=== PATIENT | female | born 1990 | race Caucasian/White ===

== ENCOUNTER 2017-04-14 12:21 | Emergency (ER) | payer OTHER ==
[~2017-04-14] VITALS: Ht 170.2 cm; Wt 95.3 kg
[~2017-04-14 12:21] MED LIST: BACT800T5 PO; CLEO150C PO; CLON1TAB PO; CLON2TAB PO; CLONI1TA PO; FLUO20CA9 PO; HYDR-3713 PO; HYDR-3781 PO; IBUP80TA PO; KLON1TAB PO; METH75TA PO; PERC5TAB6 PO; PROZ40CA PO; RISP0.5T3 PO; TRAZO50TA PO; VITAPRTA PO
[2017-04-14] MEDS ORDERED: SUBO12MI SL (12:48)
[2017-04-14] MEDS ORDERED: GABA-282 PO (12:48)
[2017-04-14] MEDS ORDERED: CLONI1TA PO (13:30)
[2017-04-14 14:14] VITALS: BP 141/101
[2017-04-14 14:15] VITALS: BP 141/101
[2017-04-14] MEDS ORDERED: cloNIDine 0.1 MG TAB PO ONE (14:15)
[2017-04-14] MEDS ORDERED: hydrOXYzine 25 MG TAB PO ONE (14:15)
== END 2017-04-14 14:23 | disposition home or self-care (01) ==
LOC: M ED 14:04
DX: F11.23 Opioid dependence with withdrawal (principal); F17.210 Nicotine dependence, cigarettes, uncomplicated; Z88.1 Allergy status to other antibiotic agents; Z79.899 Other long term (current) drug therapy

== ENCOUNTER 2017-04-26 20:27 | Emergency (ER) | payer OTHER ==
[~2017-04-26] VITALS: Ht 170.2 cm; Wt 91.9 kg
[~2017-04-26 20:27] MED LIST changes: +FLUO20CA19 PO; -FLUO20CA9 PO; +GABA-282 PO; +PERC5TAB12 PO; -PERC5TAB6 PO; +SUBO12MI SL
[2017-04-26] MEDS ORDERED: PERC5TAB12 PO (23:11)
[2017-04-26] MEDS ORDERED: CLEO300C2 PO (23:11)
[2017-04-26] MEDS ORDERED: OXYCODONE/APAP 5MG/325MG(BULK FOR ED) 1 TABLET PO ONE (23:15)
[2017-04-26] MEDS ORDERED: CLINDAMYCIN 150 MG CAP PO ONE (23:15)
[2017-04-26 23:24] VITALS: BP 98/56
== END 2017-04-26 23:39 | disposition home or self-care (01) ==
LOC: M ED 23:07
DX: L02.11 Cutaneous abscess of neck (principal); B19.20 Unspecified viral hepatitis C without hepatic coma; F17.210 Nicotine dependence, cigarettes, uncomplicated; Z79.899 Other long term (current) drug therapy; Z88.0 Allergy status to penicillin

== ENCOUNTER 2017-07-23 20:11 | Emergency (ER) | payer MEDICAID, OTHER ==
[~2017-07-23] VITALS: Ht 167.6 cm; Wt 86.8 kg
[~2017-07-23 20:11] MED LIST changes: +CLEO300C2 PO
[2017-07-23 20:12] VITALS: BP 148/85
[2017-07-23] MEDS ORDERED: IBUP80TA PO (20:42)
[2017-07-23] MEDS ORDERED: CLEO300C2 PO (20:42)
[2017-07-23] MEDS ORDERED: NORCO 5/325MG TABLET (BULK FOR ED) PO ONE (20:45)
[2017-07-23] MEDS ORDERED: CLINDAMYCIN 150 MG CAP PO ONE (20:45)
== END 2017-07-23 21:04 | disposition home or self-care (01) ==
LOC: M ED 20:11
DX: L02.214 Cutaneous abscess of groin (principal); K02.9 Dental caries, unspecified; F31.9 Bipolar disorder, unspecified; M54.5 Low back pain; B19.20 Unspecified viral hepatitis C without hepatic coma; F17.210 Nicotine dependence, cigarettes, uncomplicated; Z88.0 Allergy status to penicillin; Z79.899 Other long term (current) drug therapy

== ENCOUNTER 2017-12-23 15:04 | Emergency (ER) | payer MEDICAID | END 2017-12-23 16:27 | disposition home or self-care (01) | LOC: M ED 15:04 | DX: Z76.0 Encounter for issue of repeat prescription (principal); M54.9 Dorsalgia, unspecified; F32.9 Major depressive disorder, single episode, unspecified; F41.9 Anxiety disorder, unspecified; F17.200 Nicotine dependence, unspecified, uncomplicated; Z79.899 Other long term (current) drug therapy; Z88.0 Allergy status to penicillin; Z88.1 Allergy status to other antibiotic agents | CPT/HCPCS: 99283 ==

== ENCOUNTER 2018-01-17 15:21 | Emergency (ER) | payer OTHER ==
[2018-01-17] MEDS: NORCO, ANEXSIA 5/325MG TABLET (HYDROcodone/ACETAMINOPHEN) PO (17:18)
== END 2018-01-17 17:20 | disposition home or self-care (01) ==
LOC: M ED 15:21
DX: K01.1 Impacted teeth (principal); F17.210 Nicotine dependence, cigarettes, uncomplicated; B18.2 Chronic viral hepatitis C; Z88.0 Allergy status to penicillin; Z88.8 Allergy status to other drugs, medicaments and biological substances
CPT/HCPCS: 99283

== ENCOUNTER 2018-04-27 09:21 | Emergency (ER) | payer OTHER ==
[2018-04-27] MEDS: IBUPROFEN 800 MG TAB PO (09:30)
== END 2018-04-27 11:01 | disposition home or self-care (01) ==
LOC: M ED 09:21
DX: S93.401A Sprain of unspecified ligament of right ankle, initial encounter (principal); L73.9 Follicular disorder, unspecified; L03.115 Cellulitis of right lower limb; X50.1XXA Overexertion from prolonged static or awkward postures, initial encounter; Y92.9 Unspecified place or not applicable; Y93.9 Activity, unspecified; Y99.9 Unspecified external cause status; Z88.0 Allergy status to penicillin
CPT/HCPCS: 73610

== ENCOUNTER 2018-08-03 03:05 | Emergency (ER) | payer MEDICAID, OTHER | END 2018-08-03 05:55 | disposition home or self-care (01) | LOC: M ED 03:05 | DX: K08.89 Other specified disorders of teeth and supporting structures (principal); K02.9 Dental caries, unspecified; G89.29 Other chronic pain; F17.200 Nicotine dependence, unspecified, uncomplicated; Z88.0 Allergy status to penicillin; Z88.8 Allergy status to other drugs, medicaments and biological substances | CPT/HCPCS: 99283 ==

== ENCOUNTER → 2018-10-10 | Outpatient (CLI) | payer MEDICAID ==
[2018-10-10 15:41] LABS: HEMATOCRIT 34.8 % (36.0-47.0); HEMOGLOBIN 10.9 g/dl (12.0-15.5); MEAN CORPUSCULAR HEMOGLOBIN 27.9 pg (27.0-33.0); MEAN CORPUSCULAR HGB CONC 31.3 g/dl (32.0-36.5); PLATELET COUNT, AUTOMATED 197 10^3/uL (150-450); RED BLOOD COUNT 3.91 10^6/uL (4.00-5.40); RED CELL DISTRIBUTION WIDTH 15.3 % (11.5-14.5); WHITE BLOOD COUNT 6.1 10^3/uL (4.0-10.0)
[2018-10-10 16:11] LABS: ALBUMIN 3.4 GM/DL (3.2-5.2); ALBUMIN/GLOBULIN RATIO 0.92 (1.00-1.93); ALKALINE PHOSPHATASE 77 U/L (45-117); ALT/SGPT 82 U/L (12-78); ANION GAP 6 MEQ/L (8-16); AST/SGOT 62 U/L (7-37); BILIRUBIN,TOTAL 0.2 MG/DL (0.2-1.0); BLOOD UREA NITROGEN 16 MG/DL (7-18); CALCIUM LEVEL 8.7 MG/DL (8.5-10.1); CARBON DIOXIDE LEVEL 27 MEQ/L (21-32); CHLORIDE LEVEL 108 MEQ/L (98-107); CREATININE FOR GFR 0.68 MG/DL (0.55-1.30); GLOMERULAR FILTRATION RATE > 60.0 (>60); GLUCOSE, FASTING 92 MG/DL (70-100); SODIUM LEVEL 141 MEQ/L (136-145); TOTAL PROTEIN 7.1 GM/DL (6.4-8.2)
[2018-10-10 16:31] LABS: HEPATITIS B SURFACE ANTIGEN NEGATIVE (NEGATIVE)
[2018-10-10 16:58] LABS: CONTROL LINE HCG INT CTR LINE PRESENT; HCG, SERUM QUALITATIVE NEGATIVE (NEGATIVE)
[2018-10-10 17:01] LABS: HIV 1&2 SCREEN CENTAUR NEGATIVE (NEGATIVE)
[2018-10-10 17:15] LABS: HEPATITIS C VIRUS ABY INDEX > 11.0 INDEX (<0.8)
[2018-10-10 17:41] LABS: CHLAMYDIA DNA AMPLIFICATION NEGATIVE (NEGATIVE); GC DNA AMPLIFICATION NEGATIVE (NEGATIVE)
[2018-10-14 00:06] LABS: HCV RNA NAA QUALITATIVE Positive (Negative)
== END ==
LOC: M LAB 14:26
DX: F11.20 Opioid dependence, uncomplicated (principal)
CPT/HCPCS: 93005

== ENCOUNTER 2018-12-20 13:03 | Emergency (ER) | payer MEDICAID ==
[~2018-12-20] VITALS: Ht 167.6 cm; Wt 90.9 kg
[~2018-12-20 13:03] MED LIST changes: -CLON1TAB PO; +CLON1TAB8 PO; -CLON2TAB PO; +CLON2TAB7 PO; +DOXY100C37 PO; -GABA-282 PO; +GABA-843 PO; +GABA-845 PO; -HYDR-3781 PO; +HYDR2.5T34 PO; +MAGICMW MT; +NORCOTAB PO
[2018-12-20 13:05] VITALS: BP 140/78
[2018-12-20] MEDS ORDERED: TOPI50TA9 (13:12)
[2018-12-20] MEDS ORDERED: VENL150C43 (13:12)
== END 2018-12-20 14:24 | disposition home or self-care (01) ==
LOC: M ED 13:03
DX: F41.9 Anxiety disorder, unspecified (principal); F19.10 Other psychoactive substance abuse, uncomplicated; Z88.0 Allergy status to penicillin; Z88.8 Allergy status to other drugs, medicaments and biological substances; Z79.899 Other long term (current) drug therapy

== ENCOUNTER 2019-09-13 18:47 | Emergency (ER) | payer MEDICAID, OTHER, SELFPAY ==
[~2019-09-13] VITALS: Ht 167.6 cm; Wt 100.7 kg
[~2019-09-13 18:47] MED LIST changes: +HYDR-3715 PO; +METH750T2 PO; -METH75TA PO; -NORCOTAB PO; +TOPI50TA9; +TRAZ1TAB10 PO; -TRAZO50TA PO; +VENL150C43
[2019-09-13] MEDS ORDERED: BUPR1TAB52 (19:02)
[2019-09-13] MEDS ORDERED: FLUO20CA19 (19:02)
[2019-09-13] MEDS ORDERED: GABA600T4 (19:02)
[2019-09-13] MEDS ORDERED: Mirtazapine (19:02)
[2019-09-13] MEDS ORDERED: LORazepam 2 MG/ML VIAL (J2060) IV STA ×5 (19:07→20:44)
[2019-09-13] MEDS ORDERED: NS 1,000 ML IV ONE ×2 (19:15→21:15)
[2019-09-13 19:30] LABS: BASO # 0.1 10^3/uL (0.0-0.2); BASO % 0.5 % (0.0-1.0); EOS # 0.1 10^3/uL (0.0-0.5); EOS % 0.9 % (0.0-3.0); HEMATOCRIT 34.2 % (36.0-47.0); HEMOGLOBIN 10.6 g/dl (12.0-15.5); LYMPH # 2.9 10^3/uL (1.5-5.0); MEAN CORPUSCULAR HEMOGLOBIN 25.7 pg (27.0-33.0); MONO # 0.9 10^3/uL (0.0-0.8); MONO % 8.2 % (0.0-5.0); NEUTROPHILS # 6.6 10^3/uL (1.5-8.5); NEUTROPHILS % 62.9 % (36.0-66.0); PLATELET COUNT, AUTOMATED 249 10^3/uL (150-450); RED BLOOD COUNT 4.12 10^6/uL (4.00-5.40); WHITE BLOOD COUNT 10.6 10^3/uL (4.0-10.0)
[2019-09-13 20:52] LABS: CK-MB VALUE MASS 9.7 NG/ML (<3.6); CREATININE FOR GFR 1.34 MG/DL (0.55-1.30); ETHYL ALCOHOL (ETHANOL) 0.003 % (0.000-0.010); GLOMERULAR FILTRATION RATE 50.1 (>60); MB/CK RELATIVE INDEX 0.46 (< OR =4); POTASSIUM SERUM 3.2 MEQ/L (3.5-5.1); TROPONIN I 0.02 NG/ML (< 0.10)
[2019-09-13] MEDS ORDERED: diphenhydrAMINE INJ 50MG/ML VIAL (J1200) IV STA (21:07)
[2019-09-13] MEDS ORDERED: HALOPERIDOL 5 MG/ML VIAL (J1630) IV STA (21:07)
[2019-09-13 23:30] VITALS: BP 146/73
--- NOTE | 2019-09-14 07:59 | ECGEPIP ---
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
--- NOTE | 2019-09-16 08:33 | REP ---
CT brain: 09/14/2019. Indication: Head trauma. Comparison: 05/22/2016. Technique: Unenhanced axial images of the brain were obtained from skull base to vertex. Findings: There is no acute intracranial hemorrhage, acute cortical infarction, mass effect, hydrocephalus or acute calvarial fracture. Impression: No acute intracranial process. Electronically Signed by London Gomez DO 09/16/2019 08:25 A
== END 2019-09-13 23:49 | disposition home or self-care (01) ==
LOC: M ED 18:47 → EDBD 18:47 → M ED 23:49
DX: F15.129 Other stimulant abuse with intoxication, unspecified (principal); S00.93XA Contusion of unspecified part of head, initial encounter; W22.09XA Striking against other stationary object, initial encounter; Y92.89 Other specified places as the place of occurrence of the external cause; R00.0 Tachycardia, unspecified; F31.9 Bipolar disorder, unspecified; B19.20 Unspecified viral hepatitis C without hepatic coma; F17.200 Nicotine dependence, unspecified, uncomplicated; Z88.0 Allergy status to penicillin; Z79.899 Other long term (current) drug therapy
CPT/HCPCS: 36415; 70450; 80048; 82550; 82553; 85025; 93005; 96374; 96375; 96376; 99285; G0480; J1200; J1630; J2060

== ENCOUNTER 2019-11-08 21:31 | Observation (INO) | payer MEDICAID, OTHER, SELFPAY ==
[~2019-11-08] VITALS: Ht 167.6 cm; Wt 96.5 kg
[~2019-11-08 21:31] MED LIST changes: +BUPR1TAB52; +FLUO20CA19; +GABA600T4; +Mirtazapine
[2019-11-08] MEDS ORDERED: NALOXONE INJ 2 MG/2 ML SYRINGE (J2310) As Ordered ONE (21:49)
[2019-11-08] MEDS ORDERED: NALOXONE INJ 2 MG/2 ML SYRINGE (J2310) IV STA (22:04)
[2019-11-08 23:45] LABS: BASO % 0.5 % (0.0-1.0); EOS % 0.5 % (0.0-3.0); HEMATOCRIT 32.6 % (36.0-47.0); HEMOGLOBIN 9.9 g/dl (12.0-15.5); LYMPH # 1.3 10^3/uL (1.5-5.0); MEAN CORPUSCULAR HEMOGLOBIN 24.8 pg (27.0-33.0); MEAN CORPUSCULAR HGB CONC 30.4 g/dl (32.0-36.5); MEAN CORPUSCULAR VOLUME 81.7 fl (80.0-96.0); MONO # 0.3 10^3/uL (0.0-0.8); MONO % 4.8 % (0.0-5.0); NEUTROPHILS # 4.7 10^3/uL (1.5-8.5); NEUTROPHILS % 73.9 % (36.0-66.0); RED BLOOD COUNT 3.99 10^6/uL (4.00-5.40); WHITE BLOOD COUNT 6.4 10^3/uL (4.0-10.0)
[2019-11-08 23:57] LABS: PLATELET COUNT, AUTOMATED 137 10^3/uL (150-450)
[2019-11-09 00:15] LABS: HCG, SERUM QUALITATIVE NEGATIVE (NEGATIVE)
[2019-11-09 00:33] LABS: ACETAMINOPHEN LEVEL < 2.0 UG/ML (10.0-30.0); ALBUMIN 3.4 GM/DL (3.2-5.2); ALT/SGPT 49 U/L (12-78); BILIRUBIN,DIRECT 0.2 MG/DL (0.0-0.2); BILIRUBIN,TOTAL 0.5 MG/DL (0.2-1.0); BLOOD UREA NITROGEN 9 MG/DL (7-18); CALCIUM LEVEL 8.5 MG/DL (8.5-10.1); CARBON DIOXIDE LEVEL 25 MEQ/L (21-32); CHLORIDE LEVEL 110 MEQ/L (98-107); CPK CREATINE PHOSPHOKINASE 646 U/L (26-192); CREATININE FOR GFR 0.69 MG/DL (0.55-1.30); ETHYL ALCOHOL (ETHANOL) < 0.003 % (0.000-0.010); GLOMERULAR FILTRATION RATE > 60.0 (>60); GLUCOSE, FASTING 86 MG/DL (70-100); POTASSIUM SERUM 3.6 MEQ/L (3.5-5.1); SALICYLATE LEVEL 2.8 MG/DL (5.0-30.0); SODIUM LEVEL 141 MEQ/L (136-145); TOTAL PROTEIN 7.2 GM/DL (6.4-8.2)
[2019-11-09 01:46] LABS: AMPHETAMINES LEVEL URINE NEGATIVE (NEGATIVE); BARBITURATES URINE NEGATIVE (NEGATIVE); BENZODIAZEPINES URINE POSITIVE (NEGATIVE); CANNABINOIDS URINE POSITIVE (NEGATIVE); COCAINE METABOLITE URINE NEGATIVE (NEGATIVE); METHADONE URINE NEGATIVE (NEGATIVE); OPIATES URINE NEGATIVE (NEGATIVE); PHENCYCLIDINE URINE NEGATIVE (NEGATIVE)
--- NOTE | 2019-11-09 04:41 | HPEPDOC ---
[facility] Medical History & Physical Date of Admission Nov 09, 2019 Date of Service: Nov 09, 2019 Attending Physician: MADIE SWARTZ MD History and Physical TIME OF SERVICE: 4:44 AM CHIEF COMPLAINT: Altered mental status HISTORY OF PRESENT ILLNESS: The patient was too sedated to provide any history at the time of my exam. Per Dr. Arrieta this is a 29-year-old female who admits to overdosing on sedatives because she was upset. She denied trying to end her life. Poison control was contacted and recommended monitoring the patient for at least 6 hours; despite being in the ER for 2 hours and receiving Narcan she has remained lethargic. REVIEW OF SYSTEMS: Unable to obtain because patient is still lethargic PAST MEDICAL/ SURGICAL HISTORY: Anxiety Bipolar disorder Hepatitis C secondary to IV drug use History of Klonopin, gabapentin, Xanax, and Suboxone abuse SOCIAL HISTORY: Polysubstance abuse. See above FAMILY HISTORY: Hypertension, now committed suicide ALLERGIES: Please see below. HOME MEDICATIONS: Please see below. PHYSICAL EXAMINATION: VITAL SIGNS: Please see below. GEN: well-nourished /lethargic but intermittently arousable with noxious stimuli / disheveled INTEGUMENT: She has dirt underneath her nails HEENT: NCAT / mucus membranes dry CVS: RRR/NMRG LUNGS: lungs are clear to auscultation bilaterally on room air ABDOMEN: soft & not tender with palpation NEURO: Unable to assess PSYCH: Lethargic/intermittently opens eyes with noxious stimuli but is not following commands LABORATORY DATA: See below. ASSESSMENT: Ms. Meyer is a 29 yr old w a PMH of hepatitis C 2/2 IVDU, bipolar disorder, anxiety, and polysubstance abuse who is admitted for observation because of altered mental status in the setting of sedative overdose. PLAN: 1. Altered mental status. Secondary to sedative overdose. EKG showed normal sinus rhythm with a heart rate of 82 Plan: Admit to PCU for frequent neuro checks/nothing by mouth and IV fluids/pending improvement in mental status, the daytime team can order diet and determine if she needs a psych eval 2. Elevated CK Drug scree negative for opiates. Renal function intact. Plan: IV fluids. / Follow-up repeat CPK 3. Polysubstance abuse. Plan: Telemetry/Fall and seizure precautions. 4. Bipolar disorder/anxiety. Plan: Hold home meds pending resolution of altered mental status DVT PROPHYLAXIS: SCDs. DISPOSITION: Likely home after less than 2 midnight's stay Vital Signs Vital Signs Date Time Temp Pulse Resp B/P (MAP) Pulse Ox O2 Delivery O2 Flow Rate FiO2 11/09/19 04:00 103/58 (73) 11/09/19 03:46 69 86 11/09/19 02:01 16 Room Air Laboratory Data Labs 24H Laboratory Tests 2 11/08/19 22:24: Immature Granulocyte % (Auto) 0.3, Neutrophils (%) (Auto) 73.9H, Lymphocytes (%) (Auto) 20.0L, Monocytes (%) (Auto) 4.8, Eosinophils (%) (Auto) 0.5, Basophils (%) (Auto) 0.5, Neutrophils # (Auto) 4.7, Lymphocytes # (Auto) 1.3L, Monocytes # (Auto) 0.3, Eosinophils # (Auto) 0.0, Basophils # (Auto) 0.0, Nucleated Red Blood Cells % (auto) 0.0, Anion Gap 6L, Glomerular Filtration Rate > 60.0, Calcium Level 8.5, Total Bilirubin 0.5, Direct Bilirubin 0.2, Aspartate Amino Transf (AST/SGOT) 69H, Alanine Aminotransferase (ALT/SGPT) 49, Alkaline Phosphatase 61, Total Creatine Kinase 646H, Total Protein 7.2, Albumin 3.4, Albumin/Globulin Ratio 0.89L, Thyroid Stimulating Hormone (TSH) 4.600H, Human Chorionic Gonadotropin, Qual NEGATIVE, Salicylates Level 2.8L, Urine Opiates Screen NEGATIVE, Urine Methadone Screen NEGATIVE, Acetaminophen Level < 2.0L, Urine Barbiturates Screen NEGATIVE, Urine Phencyclidine Screen NEGATIVE, Urine Amphetamines Screen NEGATIVE, Urine Benzodiazepines Screen POSITIVEH, Urine Cocaine Metabolite Screen NEGATIVE, Urine Cannabinoids Screen POSITIVEH, Ethyl Alcohol Level < 0.003 11/08/19 23:14: Bedside Glucose (Misc Panel) 83 CBC/BMP Laboratory Tests 11/08/19 22:24 Home Medications Unable to Obtain Active Prescriptions or Reported Meds Allergies Coded Allergies: amoxicillin (Verified Allergy, Intermediate, hives, 09/13/19) clavulanic acid (Verified Allergy, Intermediate, hives, 09/13/19) A-FIB/CHADSVASC A-FIB History Current/History of A-Fib/PAF?: No Current PO Anticoag Therapy: No MADIE SWARTZ MD Nov 09, 2019 04:40
[2019-11-09] MEDS ORDERED: MOM 30ML SUSPENSION UDC PO PRN (04:45)
[2019-11-09] MEDS ORDERED: MAALOX 30 ML SUSP *UDC PO PRN (04:45)
[2019-11-09] MEDS ORDERED: ACETAMINOPHEN TAB 650MG DOSE (2X325MG) PO PRN (04:45)
[2019-11-09] MEDS ORDERED: NS 1,000 ML IV ONE (05:45)
--- NOTE | 2019-11-09 10:35 | IPN ---
DATE: 11/09/2019 Jenny is seen in the emergency room (ER). She is seen for bed status. She was admitted for excessive sedation after taking excessive amounts of her psychiatric medications. She has a history of mental health disorder and has had inpatient mental health admissions. PHYSICAL EXAMINATION: Afebrile. Blood pressure 110/61. General Appearance: She is lying in bed. She awakens to answer questions with mumbling in one or two-word answers but does not complete full sentences before falling back asleep. Lungs: Clear. Heart: Regular rhythm. Abdomen: Soft, nontender. Moves arms and legs with equal strength. IMPRESSION: Excessive sedation: Apparently, the plan was for her to be discharged today if she "woke up". At this point, she is still excessively sedated and I am not sure whether this is intentional or unintentional. She has a history of psychiatric hospitalization in the past. I have consulted Dr. Herring for psychiatry consult. Would not discharge this patient to home without psychiatry evaluation.
[2019-11-09] MEDS: DOCUSATE SODIUM 100 MG CAP PO SCH ×2 (10:55→20:10)
[2019-11-09] MEDS ORDERED: METAL LOCK LOOP XX ONE (13:44)
[2019-11-09 17:58] VITALS: BP 131/79
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
--- NOTE | 2019-11-09 19:06 | IPNPDOC ---
Text Note Date of Service The patient was seen on 11/09/19. NOTE Per d/w the day time RN the patient has an abcess in her axilla and her temp is 100.1. We will order cbc,bmp, blood cx and start bactrim DS. She already has acetaminophen. VS,Fishbone, I+O VS, Fishbone, I+O Laboratory Tests 11/08/19 22:24 Vital Signs Date Time Temp Pulse Resp B/P (MAP) Pulse Ox O2 Delivery O2 Flow Rate FiO2 11/09/19 17:58 100.1 88 17 131/79 (96) 96 Room Air MADIE SWARTZ MD Nov 09, 2019 19:06
[2019-11-09] MEDS: BACTRIM 160MG/800MG DS TAB PO SCH (20:10)
[2019-11-09] MEDS: ACETAMINOPHEN 650MG ER TAB (TYLENOL ARTHRITIS) PO SCH (20:10)
[2019-11-09] MEDS: GABAPENTIN 300 MG CAP PO SCH (20:10)
[2019-11-09 20:11] VITALS: BP 113/70
[2019-11-09] MEDS: TOPIRAMATE (TopAMAX) 25 MG TAB PO SCH (20:11)
[2019-11-09] MEDS ORDERED: cloNIDine 0.1 MG TAB PO SCH (21:00)
[2019-11-09 22:00] VITALS: BP 113/70
[2019-11-10] VITALS (7 sets, daily range): BP systolic 80–130; BP diastolic 40–76
[2019-11-10] MEDS: BACTRIM 160MG/800MG DS TAB PO SCH ×3 (00:34→20:02)
--- NOTE | 2019-11-10 04:05 | IPNPDOC ---
Text Note Date of Service The patient was seen on 11/10/19. NOTE Overnight Progress Note Notified by nurse of low blood pressure at 82/60 manually at 0200 on 11/10/19. The patient received a new medication Catapres at 2200 on 11/09/19 and blood pressure at that time was 113/70. Patient does not have IV access and staff have been unable to obtain access. Patient was encouraged to drink plenty of fluids and blood pressure recheck at 1 hour interval had improved to 90/62. Plan: Continue to encourage oral fluid intake and recheck BP in 2 hours. If stable, continue regular vital sign monitoring as ordered. I will also d/c the Catapres as it seems she does not tolerate this. VS,Fishbone, I+O VS, Fishbone, I+O Vital Signs Date Time Temp Pulse Resp B/P (MAP) Pulse Ox O2 Delivery O2 Flow Rate FiO2 11/10/19 02:00 97.7 69 20 80/40 (53) 99 Room Air I&O- Last 24 Hours up to 6 AM 11/10/19 06:00 Intake Total 600 ml Output Total 0 ml Balance 600 ml CHARLIE SOUSA D.O. Nov 10, 2019 04:05
--- NOTE | 2019-11-10 05:45 | ECGEPIP ---
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
[2019-11-10] MEDS: ACETAMINOPHEN 650MG ER TAB (TYLENOL ARTHRITIS) PO SCH ×3 (06:30→21:34)
[2019-11-10 07:30] LABS: HEMATOCRIT 32.3 % (36.0-47.0); HEMOGLOBIN 9.7 g/dl (12.0-15.5); MEAN CORPUSCULAR HEMOGLOBIN 25.2 pg (27.0-33.0); MEAN CORPUSCULAR VOLUME 83.9 fl (80.0-96.0); PLATELET COUNT, AUTOMATED 179 10^3/uL (150-450); RED BLOOD COUNT 3.85 10^6/uL (4.00-5.40); WHITE BLOOD COUNT 5.3 10^3/uL (4.0-10.0)
[2019-11-10 08:08] LABS: BLOOD UREA NITROGEN 7 MG/DL (7-18); CALCIUM LEVEL 8.2 MG/DL (8.5-10.1); CARBON DIOXIDE LEVEL 22 MEQ/L (21-32); CHLORIDE LEVEL 111 MEQ/L (98-107); CREATININE FOR GFR 0.67 MG/DL (0.55-1.30); GLOMERULAR FILTRATION RATE > 60.0 (>60); GLUCOSE, FASTING 84 MG/DL (70-100); POTASSIUM SERUM 4.2 MEQ/L (3.5-5.1); SODIUM LEVEL 140 MEQ/L (136-145)
[2019-11-10] MEDS: FLUoxetine 20 MG CAP PO SCH (08:42)
[2019-11-10] MEDS: GABAPENTIN 300 MG CAP PO SCH ×3 (08:42→20:02)
[2019-11-10] MEDS: TOPIRAMATE (TopAMAX) 25 MG TAB PO SCH ×2 (08:43→20:03)
[2019-11-10] MEDS: DOCUSATE SODIUM 100 MG CAP PO SCH ×2 (08:43→20:03)
--- NOTE | 2019-11-10 15:30 | DSES ---
DATE OF ADMISSION: 11/08/2019 DATE OF DISCHARGE: PRINCIPLE DIAGNOSIS: Intentional overdose of medications. SECONDARY DIAGNOSES: 1. Abscess left antecubital fossa secondary to IV drug injection. 2. Hypotension probably from clonidine. HISTORY: Patient was admitted with altered mental status. Parents said she took an intentional overdose of some her of sedatives as well a Suboxone. HOSPITAL COURSE: She was admitted to a medical bed. She was seen by psychiatry and notes she has been abusing Xanax up to 6 mg twice a day, buying Suboxone 4 mg a day illegally. She was started on Prozac, Topamax, Neurontin. Attempt was made to give her clonidine but she became hypotensive. She had warmth and redness and swelling in the left antecubital fossa at a drug injection site and was started on Bactrim DS and this will need to be followed clinically. Today, her blood pressure is 126/76, pulse 68, respiratory rate 15, 96.8 degrees. She is sleeping but arouses easily and follows commands. Lungs clear. Heart: Regular rhythm. Abdomen: Soft, nontender. Left antecubital fossa is swollen and tender with some slight warmth. White count is 5.3, hemoglobin 9.7, platelets 179. Sodium 140, potassium 4.2, BUN 7, creatinine 0.6, glucose 84. DISPOSITION: She is stable for transfer to the inpatient mental health unit. Current medications are: - Tylenol as needed - Prozac 20 mg a day - Neurontin 60 mg three times a day - Topamax 50 mg twice a day - Bactrim DS tablets which she is currently receiving two tablets every 6 hours and will change this to one tablet every 12 hours as it is a DS that she is receiving. If she fails to respond to this, she will need evaluation and possible incision and drainage by on-call surgery. It think it is unlikely that she will need this and I think she can safely be transferred down to inpatient mental health unit (IMHU) at this point.
[2019-11-11 02:00] VITALS: BP 112/62
[2019-11-11 06:00] VITALS: BP 120/64
[2019-11-11] MEDS: ACETAMINOPHEN 650MG ER TAB (TYLENOL ARTHRITIS) PO SCH ×3 (06:00→21:49)
[2019-11-11] MEDS: GABAPENTIN 300 MG CAP PO SCH ×3 (09:46→21:48)
[2019-11-11] MEDS: TOPIRAMATE (TopAMAX) 25 MG TAB PO SCH ×2 (09:46→21:49)
[2019-11-11] MEDS: BACTRIM 160MG/800MG DS TAB PO SCH ×2 (09:46→21:50)
[2019-11-11] MEDS: FLUoxetine 20 MG CAP PO SCH (09:47)
[2019-11-11] MEDS: DOCUSATE SODIUM 100 MG CAP PO SCH ×2 (09:47→21:00)
[2019-11-11 10:00] VITALS: BP 110/75
[2019-11-11] MEDS ORDERED: FLUO20CA19 PO (10:23)
[2019-11-11] MEDS ORDERED: GABA-843 PO (10:23)
[2019-11-11] MEDS ORDERED: SULF1TAB93 PO (10:23)
[2019-11-11] MEDS ORDERED: TOPA1TAB PO (10:23)
[2019-11-11 14:00] VITALS: BP 119/76
[2019-11-11 18:00] VITALS: BP 109/59
[2019-11-11 22:00] VITALS: BP 111/64
[2019-11-12 06:00] VITALS: BP 104/59
[2019-11-12] MEDS: ACETAMINOPHEN 650MG ER TAB (TYLENOL ARTHRITIS) PO SCH ×2 (06:00→14:00)
[2019-11-12] MEDS: BACTRIM 160MG/800MG DS TAB PO SCH (08:08)
[2019-11-12] MEDS: DOCUSATE SODIUM 100 MG CAP PO SCH (08:08)
[2019-11-12] MEDS: GABAPENTIN 300 MG CAP PO SCH (08:08)
[2019-11-12] MEDS: FLUoxetine 20 MG CAP PO SCH (08:08)
[2019-11-12] MEDS: TOPIRAMATE (TopAMAX) 25 MG TAB PO SCH (08:09)
[2019-11-12 14:00] VITALS: BP 145/85
== END 2019-11-12 14:30 ==
LOC: M ED 21:31 → M ED INP 21:32 → ENRESERV 11-09 16:24 → M MSPAV 11-09 17:52
PROVIDERS: ADMIT Internal Medicine; ATTEND Internal Medicine
DX: T42.6X4A Poisoning by other antiepileptic and sedative-hypnotic drugs, undetermined, initial encounter (principal); T40.2X4A Poisoning by other opioids, undetermined, initial encounter; R41.82 Altered mental status, unspecified; F19.10 Other psychoactive substance abuse, uncomplicated; L02.414 Cutaneous abscess of left upper limb; I95.2 Hypotension due to drugs; T46.5X5A Adverse effect of other antihypertensive drugs, initial encounter; F33.2 Major depressive disorder, recurrent severe without psychotic features; F41.9 Anxiety disorder, unspecified; B19.20 Unspecified viral hepatitis C without hepatic coma; I10 Essential (primary) hypertension; Z81.8 Family history of other mental and behavioral disorders; Z79.899 Other long term (current) drug therapy; Z79.2 Long term (current) use of antibiotics; Z91.411 Personal history of adult psychological abuse; Z88.0 Allergy status to penicillin
CPT/HCPCS: 36415; 80048; 80076; 80307; 82550; 83735; 84443; 84703; 85025; 85027; 93005; 93041; 94760; 96374; 99285; G0480; J2310

== ENCOUNTER 2019-11-12 12:58 | Inpatient (IN) | payer MEDICAID, OTHER, SELFPAY ==
[~2019-11-12] VITALS: Ht 167.6 cm; Wt 81.8 kg
[~2019-11-12 12:58] MED LIST changes: +SULF1TAB93 PO; +TOPA1TAB PO
[2019-11-12] MEDS ORDERED: MOM 30ML SUSPENSION UDC PO PRN (13:15)
[2019-11-12] MEDS ORDERED: IBUPROFEN 400 MG TAB PO PRN (13:15)
[2019-11-12] MEDS ORDERED: MAALOX 30 ML SUSP *UDC PO PRN (13:15)
[2019-11-12 14:31] VITALS: BP 130/75
[2019-11-12] MEDS: GABAPENTIN 300 MG CAP PO SCH ×2 (15:46→21:18)
[2019-11-12] MEDS: cloNIDine 0.1 MG TAB PO SCH ×2 (16:00→21:00)
[2019-11-12 16:34] VITALS: BP 119/76
[2019-11-12] MEDS: DOCUSATE SODIUM 100 MG CAP PO SCH (21:00)
[2019-11-12] MEDS: traZODone 50 MG TAB PO PRN (21:18)
[2019-11-12] MEDS: BACTRIM 160MG/800MG DS TAB PO SCH (21:18)
[2019-11-12] MEDS: TOPIRAMATE (TopAMAX) 25 MG TAB PO SCH (21:18)
[2019-11-13 06:46] VITALS: BP 97/60
[2019-11-13] MEDS: DOCUSATE SODIUM 100 MG CAP PO SCH ×2 (08:41→21:00)
[2019-11-13] MEDS: cloNIDine 0.1 MG TAB PO SCH ×3 (08:45→22:00)
[2019-11-13] MEDS: FLUoxetine 20 MG CAP PO SCH (08:45)
[2019-11-13] MEDS: TOPIRAMATE (TopAMAX) 25 MG TAB PO SCH ×2 (08:45→22:01)
[2019-11-13] MEDS: GABAPENTIN 300 MG CAP PO SCH ×3 (08:45→22:00)
[2019-11-13] MEDS: BACTRIM 160MG/800MG DS TAB PO SCH ×2 (08:45→22:00)
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
[2019-11-13 16:23] VITALS: BP 114/63
--- NOTE | 2019-11-13 17:03 | CR.PDOC ---
General Date of Consultation: Nov 13, 2019 Consultation REASON FOR CONSULTATION/CHIEF COMPLAINT: Physical evaluation HISTORY OF PRESENT ILLNESS: Patient is 30 years old female with past medical history of depression was admitted to the hospital after drug overdose. Patient denies any fever, chills, nausea, vomiting, chest pain, palpitations, diarrhea or dysuria ALLERGIES: Please see below. HOME MEDICATIONS: Please see below. PAST MEDICAL HISTORY: Depression Hypertension Hepatitis C PAST SURGICAL HISTORY: Tubal ligation, 2 C-sections FAMILY HISTORY: Father: Healthy Mother: Healthy Children: 3 kids SOCIAL HISTORY: Marital status and/or living arrangements: Tobacco use: Smokes tobacco cigarettes ETOH: Social Illicit drug use: On Suboxone, previous IV heroin REVIEW OF SYSTEMS: 10 point review system negative except listed above PHYSICAL EXAMINATION: VITAL SIGNS: Please see below. GENERAL APPEARANCE: Well-nourished, well-developed female HEENT: Normocephalic, atraumatic. Mucous members moist and pink CARDIOVASCULAR: Regular rate and rhythm. No murmurs, rubs or gallops. Radial pulses are intact. There is no lower extremity edema LUNGS: Clear to auscultation ABDOMEN: Abdomen is soft and nontender. MUSCULOSKELETAL: Range of motion is intact in all 4 extremities NEUROLOGICAL: Cranial nerves II-12 are grossly intact. Speech is not dysarthric LABORATORY DATA: Please see below. ASSESSMENT/PLAN: Patient does not have any acute diseases besides of his psychiatric diseases. Vital Signs/I&O Vital Signs Date Time Temp Pulse Resp B/P (MAP) Pulse Ox O2 Delivery O2 Flow Rate FiO2 11/13/19 16:23 98.1 69 18 114/63 (80) 11/12/19 14:31 100 Room Air Allergies Coded Allergies: amoxicillin (Verified Allergy, Intermediate, hives, 09/13/19) clavulanic acid (Verified Allergy, Intermediate, hives, 09/13/19) Home Medications Scheduled Fluoxetine Hcl (Fluoxetine HCl) 20 Mg Capsule, 20 MG PO QAM for 1 Days, #1 Gabapentin (Gabapentin) 300 Mg Capsule, 600 MG PO TID for 1 Days, #1 Sulfamethoxazole/Trimethoprim (Sulfamethoxazole-Tmp Ds Tablet) 1 Each Tablet, 1 TAB PO BID for 1 Days, #1 Topiramate (Topamax) 25 Mg Tablet, 50 MG PO BID for 1 Days, #1 MARIAJOSE ARIAS DO Nov 13, 2019 17:03
[2019-11-13] MEDS: traZODone 50 MG TAB PO PRN (22:00)
[2019-11-14 05:54] VITALS: BP 98/51
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
[2019-11-14] MEDS: DOCUSATE SODIUM 100 MG CAP PO SCH ×2 (09:00→21:00)
[2019-11-14] MEDS: BACTRIM 160MG/800MG DS TAB PO SCH ×2 (09:15→21:52)
[2019-11-14] MEDS: GABAPENTIN 300 MG CAP PO SCH ×3 (09:16→21:52)
[2019-11-14] MEDS: TOPIRAMATE (TopAMAX) 25 MG TAB PO SCH ×2 (09:16→21:52)
[2019-11-14] MEDS: cloNIDine 0.1 MG TAB PO SCH ×3 (09:16→21:00)
[2019-11-14] MEDS: FLUoxetine 20 MG CAP PO SCH (09:17)
[2019-11-14 15:49] VITALS: BP 114/63
[2019-11-14] MEDS: traZODone 50 MG TAB PO PRN (21:52)
[2019-11-15 06:31] VITALS: BP 110/51
[2019-11-15 08:01] VITALS: BP 110/51
[2019-11-15] MEDS ORDERED: GABA-843 PO (08:44)
[2019-11-15] MEDS ORDERED: PROZ40CA PO (08:44)
[2019-11-15] MEDS ORDERED: TOPA1TAB PO (08:44)
[2019-11-15] MEDS ORDERED: SULF1TAB93 PO (08:44)
[2019-11-15] MEDS ORDERED: TRAZ-252 PO (08:44)
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
[2019-11-15 09:00] VITALS: BP 112/64
[2019-11-15] MEDS: DOCUSATE SODIUM 100 MG CAP PO SCH (09:00)
[2019-11-15] MEDS: cloNIDine 0.1 MG TAB PO SCH (09:00)
[2019-11-15] MEDS: BACTRIM 160MG/800MG DS TAB PO SCH (09:16)
[2019-11-15] MEDS: FLUoxetine 20 MG CAP PO SCH (09:16)
[2019-11-15] MEDS: GABAPENTIN 300 MG CAP PO SCH (09:16)
[2019-11-15] MEDS: TOPIRAMATE (TopAMAX) 25 MG TAB PO SCH (09:16)
== END 2019-11-15 11:13 | disposition home or self-care (01) | DRG 751 ==
LOC: M PSY 14:28
PROVIDERS: ADMIT Psychiatry & Neurology Addiction Medicine; ATTEND Psychiatry & Neurology Psychiatry
DX: F33.9 Major depressive disorder, recurrent, unspecified (principal); F11.10 Opioid abuse, uncomplicated; F13.10 Sedative, hypnotic or anxiolytic abuse, uncomplicated; Z79.899 Other long term (current) drug therapy; Z88.0 Allergy status to penicillin; Z88.8 Allergy status to other drugs, medicaments and biological substances; F17.210 Nicotine dependence, cigarettes, uncomplicated; Z91.410 Personal history of adult physical and sexual abuse; Z91.411 Personal history of adult psychological abuse; Z91.5 Personal history of self-harm

== ENCOUNTER 2019-12-15 22:24 | Inpatient (IN) | payer MEDICAID, OTHER ==
[~2019-12-15] VITALS: Ht 165.1 cm; Wt 97.5 kg
[~2019-12-15 22:24] MED LIST changes: -FLUO20CA19; -FLUO20CA19 PO; +FLUO20CA22; +FLUO20CA22 PO; +TRAZ-252 PO
[2019-12-15] MEDS ORDERED: REME15TA2 PO (22:58)
[2019-12-15] MEDS ORDERED: NS 1,000 ML IV ONE (23:00)
[2019-12-15 23:14] LABS: HEMATOCRIT 32.7 % (36.0-47.0); HEMOGLOBIN 10.3 g/dl (12.0-15.5); MEAN CORPUSCULAR HEMOGLOBIN 24.9 pg (27.0-33.0); MEAN CORPUSCULAR HGB CONC 31.5 g/dl (32.0-36.5); PLATELET COUNT, AUTOMATED 188 10^3/uL (150-450); RED BLOOD COUNT 4.14 10^6/uL (4.00-5.40); WHITE BLOOD COUNT 6.9 10^3/uL (4.0-10.0)
[2019-12-15 23:52] LABS: ALBUMIN 4.1 GM/DL (3.2-5.2); ALT/SGPT 77 U/L (12-78); BILIRUBIN,DIRECT 0.3 MG/DL (0.0-0.2); BILIRUBIN,TOTAL 0.6 MG/DL (0.2-1.0); BLOOD UREA NITROGEN 16 MG/DL (7-18); CALCIUM LEVEL 9.1 MG/DL (8.5-10.1); CARBON DIOXIDE LEVEL 22 MEQ/L (21-32); CHLORIDE LEVEL 104 MEQ/L (98-107); CPK CREATINE PHOSPHOKINASE 481 U/L (26-192); CREATININE FOR GFR 0.81 MG/DL (0.55-1.30); GLOMERULAR FILTRATION RATE > 60.0 (>60); GLUCOSE, FASTING 79 MG/DL (70-100); POTASSIUM SERUM 3.1 MEQ/L (3.5-5.1); SODIUM LEVEL 137 MEQ/L (136-145)
[2019-12-15 23:53] LABS: ACETAMINOPHEN LEVEL < 2.0 UG/ML (10.0-30.0); ETHYL ALCOHOL (ETHANOL) < 0.003 % (0.000-0.010)
[2019-12-16] VITALS (13 sets, daily range): BP systolic 81–108; BP diastolic 40–60
[2019-12-16] MEDS: KCL 10MEQ/100ML SWI (KRUN) 10 MEQ in IV 1 EA IV SCH ×4 (01:38→14:52)
[2019-12-16 05:40] LABS: AMPHETAMINES LEVEL URINE NEGATIVE (NEGATIVE); BARBITURATES URINE NEGATIVE (NEGATIVE); BENZODIAZEPINES URINE POSITIVE (NEGATIVE); CANNABINOIDS URINE POSITIVE (NEGATIVE); COCAINE METABOLITE URINE NEGATIVE (NEGATIVE); METHADONE URINE NEGATIVE (NEGATIVE); OPIATES URINE POSITIVE (NEGATIVE); PHENCYCLIDINE URINE NEGATIVE (NEGATIVE)
--- NOTE | 2019-12-16 06:41 | ECGEPIP ---
[facility] - ED Test Date: 2019-12-15 Pat Name: JOHN FARR Department: Room: - Gender: Female Category Development Manager: BAO : 1990 Requested By: GIANA VILLASEÑOR Order Number: [id number] Reading MD: Anant Finn Measurements Intervals [place] Rate: 92 P: 33 ND: 164 QRS: 36 QRSD: 110 T: 19 QT: 384 QTc: 477 Interpretive Statements SINUS RHYTHM INCOMPLETE RIGHT BUNDLE BRANCH BLOCK NONSPECIFIC ST T WAVE CHANGES PROLONGED QTC - BORDERLINE CW 11/08/19 RATE INCREASED Electronically Signed on 12-16-2019 6:41:19 EST by Anant Finn
[2019-12-16] MEDS ORDERED: NS 1,000 ML IV ONE (06:45)
[2019-12-16] MEDS ORDERED: D5W/0.45% SODIUM CHLORIDE 1,000 ML IV ONE (07:45)
--- NOTE | 2019-12-16 07:48 | REP ---
Clinical: Overdose . Comparison: 07/17/2016 . Findings: The mediastinum and cardiac silhouette are stable and within normal limits for portable technique. The lung wright are clear without acute consolidation, effusion, or pneumothorax. Skeletal structures are intact. Impression: No acute cardiopulmonary process appreciated. Electronically Signed by Rk Gotti MD 12/16/2019 07:40 A
[2019-12-16] MEDS ORDERED: ACETAMINOPHEN TAB 650MG DOSE (2X325MG) PO PRN (08:00)
[2019-12-16 08:31] LABS: FREE T4 0.94 NG/DL (0.76-1.46)
[2019-12-16] MEDS ORDERED: FLUO20CA22 PO (08:34)
[2019-12-16] MEDS ORDERED: BUPR1TAB52 PO (08:34)
[2019-12-16] MEDS ORDERED: GABA600T4 PO (08:34)
[2019-12-16] MEDS ORDERED: TRAZ-186 PO (08:34)
[2019-12-16] MEDS ORDERED: NS 500 ML IV ONE ×2 (10:30→20:15)
[2019-12-16] MEDS: D5W/0.45% SODIUM CHLORIDE 1,000 ML IV SCH ×2 (11:37→21:26)
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
--- NOTE | 2019-12-16 14:06 | ECGEPIP ---
[facility] Test Date: 2019-12-16 Pat Name: JOHN FARR Department: Room: [place] [address] Gender: Female Case Loader Operator: PABLO : 1990 Requested By: ARON CARRASCO Order Number: [id number] Reading MD: Margot Nur Measurements Intervals [place] Rate: 58 P: 36 FL: 153 QRS: 42 QRSD: 109 T: 27 QT: 473 QTc: 466 Interpretive Statements SINUS BRADYCARDIA WITH SINUS ARRHYTHMIA SIMILAR TO 12/16/19 Electronically Signed on 12-16-2019 14:06:09 EST by Margot Nur
[2019-12-16] MEDS ORDERED: KCL 10MEQ IN STERILE WATER 100ML As Ordered ONE (14:49)
--- NOTE | 2019-12-16 19:35 | ECGEPIP ---
[facility] [place] - ED Test Date: 2019-12-16 Pat Name: JOHN FARR Department: Room: - Gender: Female Security Systems Manager: CAROLINE : 1990 Requested By: GIANA VILLASEÑOR Order Number: [id number] Reading MD: Anant Finn Measurements Intervals [place] Rate: 58 P: 33 RI: 160 QRS: 40 QRSD: 110 T: 32 QT: 470 QTc: 464 Interpretive Statements SINUS BRADYCARDIA WITH SINUS ARRHYTHMIA PROLONGED QTC NONSPECIFIC ST T WAVE CHANGES CW 12/15/19 RATE DECREASED INCREASED QTC NONSPECIFIC ST T WAVE CHANGES Electronically Signed on 12-16-2019 19:34:43 EST by Anant Finn
[2019-12-17] VITALS (16 sets, daily range): BP systolic 81–133; BP diastolic 44–69
[2019-12-17] MEDS: D5W/0.45% SODIUM CHLORIDE 1,000 ML IV SCH ×3 (04:55→19:00)
[2019-12-17 05:19] LABS: HEMATOCRIT 30.1 % (36.0-47.0); HEMOGLOBIN 9.5 g/dl (12.0-15.5); MEAN CORPUSCULAR HEMOGLOBIN 25.7 pg (27.0-33.0); MEAN CORPUSCULAR HGB CONC 31.6 g/dl (32.0-36.5); MEAN CORPUSCULAR VOLUME 81.4 fl (80.0-96.0); PLATELET COUNT, AUTOMATED 145 10^3/uL (150-450); WHITE BLOOD COUNT 3.6 10^3/uL (4.0-10.0)
[2019-12-17 05:57] LABS: ALBUMIN 2.9 GM/DL (3.2-5.2); ALT/SGPT 59 U/L (12-78); BILIRUBIN,TOTAL 0.1 MG/DL (0.2-1.0); BLOOD UREA NITROGEN 7 MG/DL (7-18); CALCIUM LEVEL 8.2 MG/DL (8.5-10.1); CARBON DIOXIDE LEVEL 21 MEQ/L (21-32); CHLORIDE LEVEL 113 MEQ/L (98-107); CREATININE FOR GFR 0.62 MG/DL (0.55-1.30); GLOMERULAR FILTRATION RATE > 60.0 (>60); GLUCOSE, FASTING 100 MG/DL (70-100); POTASSIUM SERUM 3.9 MEQ/L (3.5-5.1); SODIUM LEVEL 141 MEQ/L (136-145); TOTAL PROTEIN 6.3 GM/DL (6.4-8.2)
--- NOTE | 2019-12-17 13:33 | IPNPDOC ---
Text Note Date of Service The patient was seen on 12/17/19. NOTE Subjective: -No complaints this morning. Was moved to the ICU yesterday after she had persistent asymptomatic bradycardia with hypotension requiring aggressive fluid repletion Objective: General exam: NAD, obese, asleep on my entry into the room, awake on voice, resting comfortably. HEENT: NCAT, EOMI, PERRLA, anicteric sclera, dry mucous membranes, poor dentition Cardiac: Regular rhythm, bradycardic, normal S1 & S2, no murmurs Respiratory: CTAB, good air exchange, no w/r/r Abdomen: soft, NT, ND, normoactive bowel sounds Extremity: 2+ radial and dorsalis pedis pulses, no edema or calf tenderness Skin: [place], warm, dry. Track sal on b/l forearms Msk: strength 5/5 x4, normal tone Neuro: AOx3, normal speech without dysarthria, 5/5 strength in all 4 extremities, normal CN2-12, follows commands. Psych: Depressed mood Assessment: 21 yo W brought in for an overdose of suspected Xanax and various illicit IV drugs, exact ingestion unclear, possibly motivated by suicidal ideation in the setting of verbal argument with her mother. Drug Overdose -Unclear at this point exactly which drugs patient ingested. Suspicion for excess Xanax & possible IV drugs per patient's history though history was inconsistent as she admitted to frequent use many types of drugs including IV allie, IV heroine, occasional cocaine, marijuana, benzos and her regular prescribed medications. -Tox screen was positive for opioids, benzos, cannabis -Thus far Qtc remains <500. -Poison Control aware and recommended monitoring with supportive care, they were aware of her persistent bradycardia in the 40s to 50s, lethargic state, borderline soft blood pressures and recommended continued supportive care and not administering flumazenil due to risk of withdrawal seizures at this time but to continue IV fluids, monitoring on telemetry and if indicated vasopressors and atropine. Should we consider a need for flumazenil reversal, they recommend calling back Poison Control to work alongside their electronics assembler in administration. -Psych consult when medically improved for disposition planning -continue holding all home psych meds. -continue suicide precautions with sitter Social Living situation -Lives at home with mother & ?brother, with frequent conflict and ongoing PSUD, PFS consulted Chronic Anemia -At her baseline Hgb 9-10. W/u in 2016 = borderline low iron -No evidence of overt bleeding -Monitor and consider starting po iron on discharge Hypokalemia: resolved with supplementation DVT ppx: mechanical DISPO: ICU for close monitoring, to consult psych when clinically stable. VS,Fishbone, I+O VS, Fishbone, I+O Laboratory Tests 12/17/19 05:00 Vital Signs Date Time Temp Pulse Resp B/P (MAP) Pulse Ox O2 Delivery O2 Flow Rate FiO2 12/17/19 06:23 42 92/56 (68) 12/17/19 04:39 98.4 18 99 Room Air I&O- Last 24 Hours up to 6 AM 12/17/19 06:00 Intake Total 3756 ml Output Total 660 ml Balance 3096 ml DAKOTAH TEMPLETON MD Dec 17, 2019 06:58
[2019-12-18] VITALS: BP 160/66
[2019-12-18] MEDS: D5W/0.45% SODIUM CHLORIDE 1,000 ML IV SCH (03:15)
[2019-12-18 04:00] VITALS: BP 119/63
[2019-12-18 08:07] VITALS: BP 122/57
[2019-12-18 10:02] LABS: BLOOD UREA NITROGEN 4 MG/DL (7-18); CALCIUM LEVEL 8.5 MG/DL (8.5-10.1); CARBON DIOXIDE LEVEL 19 MEQ/L (21-32); CHLORIDE LEVEL 114 MEQ/L (98-107); CREATININE FOR GFR 0.59 MG/DL (0.55-1.30); GLOMERULAR FILTRATION RATE > 60.0 (>60); GLUCOSE, FASTING 90 MG/DL (70-100); POTASSIUM SERUM 4.1 MEQ/L (3.5-5.1); SODIUM LEVEL 139 MEQ/L (136-145)
[2019-12-18 10:12] LABS: HEMATOCRIT 30.6 % (36.0-47.0); HEMOGLOBIN 9.6 g/dl (12.0-15.5); MEAN CORPUSCULAR HEMOGLOBIN 25.3 pg (27.0-33.0); MEAN CORPUSCULAR HGB CONC 31.4 g/dl (32.0-36.5); MEAN CORPUSCULAR VOLUME 80.5 fl (80.0-96.0); PLATELET COUNT, AUTOMATED 138 10^3/uL (150-450); WHITE BLOOD COUNT 4.4 10^3/uL (4.0-10.0)
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
[2019-12-18 14:09] VITALS: BP 120/68
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
== END 2019-12-18 17:58 | disposition home or self-care (01) | DRG 812 ==
LOC: M ED 22:24 → M ED INP 12-16 09:14 → ENRESERV 12-16 10:03 → M MSPAV 12-16 11:23 → M ICU 12-16 14:29
PROVIDERS: ADMIT Internal Medicine; ATTEND Internal Medicine
DX: T42.4X2A Poisoning by benzodiazepines, intentional self-harm, initial encounter (principal); F32.9 Major depressive disorder, single episode, unspecified; F41.9 Anxiety disorder, unspecified; F17.210 Nicotine dependence, cigarettes, uncomplicated; R00.1 Bradycardia, unspecified; D50.9 Iron deficiency anemia, unspecified; E87.6 Hypokalemia; F15.20 Other stimulant dependence, uncomplicated; F13.20 Sedative, hypnotic or anxiolytic dependence, uncomplicated; F11.20 Opioid dependence, uncomplicated; Z88.1 Allergy status to other antibiotic agents; Z88.8 Allergy status to other drugs, medicaments and biological substances

== ENCOUNTER 2020-01-09 11:17 | Emergency (ER) | payer OTHER ==
[~2020-01-09] VITALS: Ht 167.6 cm; Wt 95.8 kg
[~2020-01-09 11:17] MED LIST changes: +BUPR1TAB52 PO; +GABA600T4 PO; +REME15TA2 PO; +TRAZ-186 PO
[2020-01-09] MEDS ORDERED: TRAZ-252 (11:24)
--- NOTE | 2020-01-09 12:30 | REP ---
CHEST TWO VIEWS: Two views of the chest are performed and compared to prior studies, most recently 12/16/2019. There are scattered patchy infiltrates in the right upper and lower lung zones. There appears to be a small right effusion. There is probably mild right paratracheal and hilar adenopathy. Left lung is clear. The heart is not enlarged. IMPRESSION: Right lung infiltrates and small right effusion. Probable right paratracheal and hilar adenopathy. Electronically Signed by Yosi Woods MD 01/09/2020 08:13 P
[2020-01-09 12:37] LABS: INFLUENZA A AMPLIFICATION NEGATIVE (NEGATIVE); INFLUENZA B AMPLIFICATION NEGATIVE (NEGATIVE)
[2020-01-09] MEDS ORDERED: CEFDINIR 300 MG CAP (OMNICEF) PO ONE (13:15)
[2020-01-09 13:42] VITALS: BP 113/74
[2020-01-09] MEDS ORDERED: CEFD300CAP PO (14:05)
[2020-01-09] MEDS ORDERED: ZITHTAB PO (14:05)
--- NOTE | 2020-01-10 14:39 | ED PDOC ---
Post-Departure Follow-Up certified letter sent to pt re formal read of CXR. Pt needs fu for adenopathy. P shama ensure referred to pcp if no pcp - [facility] - provider contact info and fax. If PCP fax there Anant Gold MD Jan 10, 2020 14:39
== END 2020-01-09 14:11 | disposition home or self-care (01) ==
LOC: M ED 11:17
DX: J18.9 Pneumonia, unspecified organism (principal); Z20.89 Contact with and (suspected) exposure to other communicable diseases; B19.20 Unspecified viral hepatitis C without hepatic coma; F41.9 Anxiety disorder, unspecified; F32.9 Major depressive disorder, single episode, unspecified; M54.30 Sciatica, unspecified side; K76.9 Liver disease, unspecified; Z88.0 Allergy status to penicillin; Z79.899 Other long term (current) drug therapy

== ENCOUNTER 2020-01-18 20:28 | Inpatient (IN) | payer OTHER ==
[~2020-01-18] VITALS: Ht 167.6 cm; Wt 92.3 kg
[~2020-01-18 20:28] MED LIST changes: +CEFD300CAP PO; +TRAZ-252; +ZITHTAB PO
[2020-01-18] MEDS ORDERED: ALBUTEROL 90 MCG/ACT 8GM HFA INHALER INH ONE (22:15)
[2020-01-18] MEDS ORDERED: NS 1,000 ML IV ONE (22:15)
[2020-01-18] MEDS ORDERED: ONDANSETRON 4MG/2ML VIAL (J2405) IV ONE (22:15)
[2020-01-18] MEDS ORDERED: dexameTHASONE 20 MG/5 ML VIAL (J1100) IV ONE (22:15)
[2020-01-19 00:44] LABS: BASO % 0.3 % (0.0-1.0); EOS % 0.5 % (0.0-3.0); HEMATOCRIT 27.1 % (36.0-47.0); HEMOGLOBIN 8.6 g/dl (12.0-15.5); LYMPH # 2.2 10^3/uL (1.5-5.0); LYMPH % 18.2 % (24.0-44.0); MEAN CORPUSCULAR HEMOGLOBIN 24.9 pg (27.0-33.0); MEAN CORPUSCULAR HGB CONC 31.7 g/dl (32.0-36.5); MEAN CORPUSCULAR VOLUME 78.3 fl (80.0-96.0); NEUTROPHILS # 9.2 10^3/uL (1.5-8.5); NEUTROPHILS % 76.1 % (36.0-66.0); PLATELET COUNT, AUTOMATED 289 10^3/uL (150-450); RED BLOOD COUNT 3.46 10^6/uL (4.00-5.40); WHITE BLOOD COUNT 12.1 10^3/uL (4.0-10.0)
[2020-01-19 00:45] LABS: EOS # 0.1 10^3/uL (0.0-0.5); MONO # 0.5 10^3/uL (0.0-0.8)
[2020-01-19 00:59] LABS: BLOOD UREA NITROGEN 8 MG/DL (7-18); CALCIUM LEVEL 8.4 MG/DL (8.5-10.1); CARBON DIOXIDE LEVEL 30 MEQ/L (21-32); CHLORIDE LEVEL 97 MEQ/L (98-107); CREATININE FOR GFR 0.63 MG/DL (0.55-1.30); GLOMERULAR FILTRATION RATE > 60.0 (>60); GLUCOSE, FASTING 96 MG/DL (70-100); POTASSIUM SERUM 2.8 MEQ/L (3.5-5.1); SODIUM LEVEL 134 MEQ/L (136-145)
[2020-01-19] MEDS ORDERED: KCL 20MEQ IN 100ML SWI (KRUN) 20 MEQ in IV 1 EA IV ONE ×2 (01:15)
[2020-01-19] MEDS ORDERED: KCL 10MEQ/100ML SWI (KRUN) 10 MEQ in IV 1 EA IV ONE (01:15)
[2020-01-19] MEDS ORDERED: CEFD300CAP PO (01:59)
--- NOTE | 2020-01-19 02:42 | HPEPDOC ---
[facility] Medical History & Physical Date of Admission Jan 19, 2020 Date of Service: Jan 19, 2020 Attending Physician: MADIE SWARTZ MD History and Physical TIME OF SERVICE: 2:45 PM CHIEF COMPLAINT:Vomiting HISTORY OF PRESENT ILLNESS: This 29-year-old female presents to the hospital with complaints of vomiting red orange liquid that began last night around 10 PM and woke her up from her sleep. She reports having 3 episodes of emesis along with fevers and chills. For the last 3 days she has had a poor appetite. She denies eating out recently or having any sick contacts. Her last LMP was on the ; she admits to bleeding heavily. She diagnosed with pneumonia 1 week ago one week ago discharged from the ER with scripts for with cefdinir and azithromycin. Since her visit she has also developed a new cough or productive of green sputum. She denies having a sore throat, muscle aches, fever, chills, or abdominal pain. In the ER, she received albuterol, Decadron and Zosyn for presumed pneumonia with failure of out patient abx. REVIEW OF SYSTEMS: 12 point review of systems negative except as listed in HPI PAST MEDICAL/ SURGICAL HISTORY: Multiple admissions for drug overdose including Xanax, heroin, methamphetamine and Kelle THC Bipolar disorder. Anxiety/depression Chronic anemia History of hep C 2/2 IVDU Obesity 2. Eye surgery SOCIAL HISTORY: + Tobacco - Alcohol + Recreational drugs FAMILY HISTORY: Chronic hypertension Bipolar disorder One of her relatives committed suicide ALLERGIES: Please see below. HOME MEDICATIONS: Please see below. PHYSICAL EXAMINATION: VITAL SIGNS: Please see below. GEN: well-nourished / well developed/ NAD INTEGUMENT: not flushed/ has multiple tattoos / not jaundiced / diaphoretic HEENT: NCAT / lips acyanotic /mucus membranes moist and pink CVS: RRR/NMRG LUNGS: lungs are clear to auscultation bilaterally on room air ABDOMEN: Contour (flat, scaphoid, obese, distended) / there are no masses or lesions / bowel sounds are present / the abdomen is tympanic on percussion, soft & not tender with palpation MSK/EXTREMITIES: range of motion intact in all 4 extremities NEURO: CN 2-12 are grossly intact / speech is not dysarthric PSYCH: alert and oriented to person place and time/ able to understand and follow all commands LABORATORY DATA: Anion Gap 7L, Glomerular Filtration Rate > 60.0, Calcium Level 8.4L MICROBIOLOGY: Please see below. ASSESSMENT: Ms. Meyer is a 29 yr old w a PMH of hepatitis C 2/2 IVDU, bipolar disorder, depression, chronic anemia, anxiety, and polysubstance abuse who was admitted for management of hypokalemia secondary to vomiting. PLAN: 1. Hypokalemia 2/2 vomiting - Plan: Admit to PCU/telemetry/replete K and follow-up magnesium / 2. SIRS with tachycardia & leucocytosis. Cause TBD. Doubt she has PNA because by now she should have finished at least 5-7 days of abx. - Plan: IV fluids/follow- up respiratory panel if its negative the day time team may consider repeating the chest xray and resuming abx, VBG, lactic acid, blood cx and vitals 3. Vomiting 2/2 gastroenteritis vs drug w/d - Plan: Zofran / f/u drug screen 4. Acute on Chronic Microcytic anemia. Likely due to heavy menses. Her hemoglobin has dropped 1 point in the last month. - Plan: Follow-up iron panel and stool occult / the daytime team may consider outpatient Gyne referral 5. Bipolar disorder / Anxiety/Depression - Plan: Bupropion, fluoxetine, gabapentin 6. Obesity with BMI of 30.7, complicates care - Plan: Follow-up A1c and with PCP for dietitian referral DVT PROPHYLAXIS: SCDs DISPOSITION: Home after more than 2 midnight's stay Home Medications Scheduled Bupropion HCl (Bupropion HCl Sr) 100 Mg Tab.sr.12h, 100 MG PO DAILY Cefdinir (Cefdinir) 300 Mg Capsule, 300 MG PO BID STARTED 01/10/2020 Fluoxetine Hcl (Fluoxetine HCl) 20 Mg Capsule, 40 MG PO DAILY Gabapentin (Gabapentin) 600 Mg Tablet, 600 MG PO TID Allergies Coded Allergies: amoxicillin (Verified Allergy, Intermediate, hives, 12/15/19) clavulanic acid (Verified Allergy, Intermediate, hives, 12/15/19) A-FIB/CHADSVASC A-FIB History Current/History of A-Fib/PAF?: No Current PO Anticoag Therapy: No MADIE SWARTZ MD Jan 19, 2020 02:42
[2020-01-19] MEDS ORDERED: ONDANSETRON 4MG/2ML VIAL (J2405) IV PRN (02:45)
[2020-01-19 03:11] LABS: ALBUMIN 2.3 GM/DL (3.2-5.2); ALT/SGPT 37 U/L (12-78); BILIRUBIN,DIRECT 0.4 MG/DL (0.0-0.2); BILIRUBIN,TOTAL 0.7 MG/DL (0.2-1.0); LIPASE 237 U/L (73-393); TOTAL PROTEIN 7.8 GM/DL (6.4-8.2)
[2020-01-19] MEDS ORDERED: METAL LOCK LOOP XX ONE (03:15)
[2020-01-19] MEDS ORDERED: MAGNESIUM OXIDE 400 MG TAB (MAG-OX) PO ONE (04:30)
[2020-01-19] MEDS ORDERED: POTASSIUM CHL PWD 20 MEQ PACKET PO ONE (04:30)
[2020-01-19] MEDS: LR 1,000 ML IV SCH ×4 (05:21→23:46)
[2020-01-19 05:26] LABS: VENOUS BASE EXCESS 2.1 (-2.0-2.0); VENOUS HCO3 26.4 MEQ/L (23.0-27.0); VENOUS O2 SATURATION 92.7 % (60.0-80.0); VENOUS PARTIAL PRESSURE CO2 40.2 mmHg (38.0-50.0); VENOUS PARTIAL PRESSURE O2 71.2 mmHg (30.0-50.0); VENOUS PH 7.436 UNITS (7.330-7.430); VENOUS STANDARD HCO3 26.3 MEQ/L; VENOUS TOTAL CO2 27.7 MEQ/L (24.0-28.0)
[2020-01-19 08:39] LABS: BASO % 0.2 % (0.0-1.0); EOS % 0.1 % (0.0-3.0); HEMATOCRIT 26.5 % (36.0-47.0); HEMOGLOBIN 8.4 g/dl (12.0-15.5); LYMPH % 8.9 % (24.0-44.0); MEAN CORPUSCULAR HEMOGLOBIN 25.5 pg (27.0-33.0); MEAN CORPUSCULAR HGB CONC 31.7 g/dl (32.0-36.5); MEAN CORPUSCULAR VOLUME 80.3 fl (80.0-96.0); MONO # 0.1 10^3/uL (0.0-0.8); MONO % 1.2 % (0.0-5.0); NEUTROPHILS # 10.1 10^3/uL (1.5-8.5); NEUTROPHILS % 88.9 % (36.0-66.0); PLATELET COUNT, AUTOMATED 277 10^3/uL (150-450); WHITE BLOOD COUNT 11.4 10^3/uL (4.0-10.0)
[2020-01-19] MEDS: GABAPENTIN 300 MG CAP PO SCH ×3 (08:56→20:49)
[2020-01-19] MEDS: FLUoxetine 20 MG CAP PO SCH (08:56)
[2020-01-19 08:58] LABS: ALBUMIN 2.4 GM/DL (3.2-5.2); ALT/SGPT 35 U/L (12-78); BILIRUBIN,TOTAL 0.7 MG/DL (0.2-1.0); BLOOD UREA NITROGEN 11 MG/DL (7-18); CALCIUM LEVEL 8.2 MG/DL (8.5-10.1); CARBON DIOXIDE LEVEL 30 MEQ/L (21-32); CHLORIDE LEVEL 102 MEQ/L (98-107); GLOMERULAR FILTRATION RATE > 60.0 (>60); GLUCOSE, FASTING 137 MG/DL (70-100); MAGNESIUM LEVEL 2.5 MG/DL (1.8-2.4); POTASSIUM SERUM 3.2 MEQ/L (3.5-5.1); SODIUM LEVEL 138 MEQ/L (136-145); TOTAL PROTEIN 8.1 GM/DL (6.4-8.2)
[2020-01-19] MEDS: buPROPion (WELLBUTRIN SR) 100 MG SR TAB PO SCH (09:45)
--- NOTE | 2020-01-19 11:28 | IPNPDOC ---
Text Note Date of Service The patient was seen on 01/19/20. NOTE Subjective: Patient is a 29-year-old female with a PMHx of Chronic anemia, Hx of Hep C 2/2 IVDU, Obesity, Bipolar disorder / Anxiety / Depression, who was presented to the emergency room with complaints of nausea and vomiting that started yesterday evening. Patient reported that she was in the emergency room on 01/09/2020 for symptoms of a pneumonia and was prescribed Cefdinir and azithromycin on discharge. Patient was admitted to the hospitalist service for further evaluation and treatment. Patient was seen and examined at the bedside. Currently patient is resting in bed. She denies any chest pain, shortness of breath or productive cough. Has not expense any further episodes of nausea and vomiting. Denies any abdominal discomfort. Does report having a bowel movement. Denies any urinary discomfort. Objective: Vitals (See below) General: Lying in bed, resting comfortably in bed, AAOx3 HEENT: NC, AT CVS: +S1S2 Lungs: Decreased lung sounds at R lung field, -w/r/r Abdomen: Soft, ND, abdomen is without any tenderness Extremities: - Edema, - Calf tenderness Assessment and plan: Hypokalemia - likely 2/2 vomiting (see below) - Improving - Will continue to follow and supplement Leukocytosis - Clinically ROS is negative for any SOB / Cough; has resolution of nausea / vomiting - Hemodynamically stable and afebrile - Lactic acid negative - Leukocytosis improving - Will repeat CXR - Was given dose of Dexamethasone 10mg IV in the ER - Will hold off on antibiotics at this time s/p Nausea and Vomiting - possibly 2/2 viral enteritis, possible cyclic vomiting syndrome - Hx of Marijuana use - Lipase negative - Physical negative for tenderness - UDS pending - c/w IV hydration and symptomatic control Acute on Chronic Microcytic anemia - possibly 2/2 blood loss 2/2 menses - Hg baseline of 9-10 - Currently Hg is at 8; will continue to trend - No evidence of blood loss currently - Iron panel in the past was consistent with CHERELLE; will repeat iron workup currently - Will start Ferrous sulfate Bipolar disorder / Anxiety / Depression - c/w Bupropion, fluoxetine, gabapentin Obesity - BMI of 30.7 - Complicating medical care DVT prophylaxis - c/w TEDs/ Sequentials Disposition: - Anticipate discharge in 24/48 hours Magdalena MOSCOSO I+O VS, Fishbone, I+O Laboratory Tests 01/19/20 00:03 01/19/20 05:05 01/19/20 05:06 Vital Signs Date Time Temp Pulse Resp B/P (MAP) Pulse Ox O2 Delivery O2 Flow Rate FiO2 01/19/20 11:05 60 100/59 (73) 01/19/20 09:48 96.4 18 99 Room Air 01/19/20 03:15 2.0 I&O- Last 24 Hours up to 6 AM 01/19/20 06:00 Intake Total 1100 ml Balance 1100 ml MILES CHAVES MD Jan 19, 2020 11:28
[2020-01-19] MEDS: FERROUS SULFATE 325MG TAB PO SCH ×2 (11:49→20:49)
[2020-01-19 14:46] VITALS: BP 116/75
[2020-01-19] MEDS ORDERED: LevoFLOXacin IV 750 MG in IV 1 EA IV SCH (16:00)
--- NOTE | 2020-01-19 16:05 | REP ---
REASON: Followup. COMPARISON: 01/09/2020, the latest prior. The patchy opacity in the right lower lobe with right CP angle blunting seen on the prior exam has increased. The patchy superior perihilar opacity also seen on the right has also increased. The left lung is clear and stable. The cardiomediastinal silhouette is unchanged. The heart is not enlarged. The osseous structures are stable and intact. IMPRESSION: Increased right lung opacities, consistent with pneumonia with pleural effusion. A small air-fluid level is seen in the right lower lobe opacity abutting the right minor fissure. A loculate air-fluid level is suspected but difficult to evaluate with plain radiography. Electronically Signed by Frantz Ruby DO 01/19/2020 04:22 P
--- NOTE | 2020-01-19 16:13 | REP ---
REASON: Pleural effusion and dyspnea. COMPARISON: None. The lack of intravenous contrast significantly decreases the sensitivity of the exam. There is mediastinal adenopathy. Hilar adenopathy cannot be excluded, particularly on the right. There is a right pleural effusion. There is no pericardial effusion. The imaged upper abdomen shows splenomegaly. There is a trace of ascites. The imaged osseous structures are intact. Evaluation of the lung wright shows a large right upper lobe cavitating mass, which measures 5.5 x 4.8 x 5.6 cm and abuts the superior mediastinum. In the right middle lobe, there is a large cavitating mass, which measures 5.6 x 7.2 x 5.7 cm. In the right lower lobe superior segment, there is a cavitating mass, which measures 4 x 2.2 x 3.7 cm abutting the paraspinal region. The left lung is clear. IMPRESSION: 1. Multiple right lung cavitary masses, as described above. 2. Right-sided pleural effusion, some of which appears loculated. 3. Adenopathy, as described above. 4. Trace amount of ascites. 5. Splenomegaly. 6. Exam limitations and other findings as described above. Electronically Signed by Frantz Ruby DO 01/19/2020 04:22 P
[2020-01-19] MEDS: VANCOMYCIN HCL 1,000 MG, VIAL MATE ADAPTER 1 EACH in D5W 250 ML IV SCH (17:18)
[2020-01-19 18:04] LABS: BASO % 0.1 % (0.0-1.0); HEMATOCRIT 27.8 % (36.0-47.0); HEMOGLOBIN 8.7 g/dl (12.0-15.5); LYMPH # 1.2 10^3/uL (1.5-5.0); LYMPH % 10.1 % (24.0-44.0); MEAN CORPUSCULAR HEMOGLOBIN 25.1 pg (27.0-33.0); MEAN CORPUSCULAR HGB CONC 31.3 g/dl (32.0-36.5); MEAN CORPUSCULAR VOLUME 80.1 fl (80.0-96.0); MONO # 0.5 10^3/uL (0.0-0.8); MONO % 4.6 % (0.0-5.0); NEUTROPHILS # 9.9 10^3/uL (1.5-8.5); PLATELET COUNT, AUTOMATED 294 10^3/uL (150-450); RED BLOOD COUNT 3.47 10^6/uL (4.00-5.40); WHITE BLOOD COUNT 11.7 10^3/uL (4.0-10.0)
--- NOTE | 2020-01-19 18:50 | PHACANCOPD ---
PHARMACY VANCOMYCIN DOSING Pt Demographics Demographics Patient Age:29 , Weight:86.360 , Gender: female Adjusted Body Weight Date: 01/19/20, Adjusted Body Weight: Kg Events Past 24 Hours Events Past 24 Hours: YES: Elevation in WBC; NO: Dialysis, Diuretic Therapy, Change in CrCl, Fever, Pending Diagnostics, Pending Procedures, Other Vancomycin Vancomycin indication: MRSA coverage/septic emboli Vancomycin Target Ranges: 15-20 mcg/ml Vancomycin Load Y/N: No Load Dose Date Time Vancomycin Load Dose: Date: Time: Vancomycin Dose Date: 01/19/20. Current Vancomycin Dose: [1g IV q8h @17] Intermittent Dosing?: No Labs Labs Item Value Date Time White Blood Count 12.1 10^3/uL H 01/19/20 0003 White Blood Count 11.4 10^3/uL H 01/19/20 0506 White Blood Count 11.7 10^3/uL H 01/19/20 1751 Creatinine 0.63 MG/DL 01/19/20 0003 Creatinine 0.60 MG/DL 01/19/20 0505 Micro Microbiology 01/19/20 Blood Culture, Received Pending 01/19/20 Blood Culture, Received Pending 01/19/20 Respiratory Virus Panel (PCR) ([facility]) - Final, Complete Creatinine Clearance Date:01/19/20. Creatinine Clearance: [>100 ml/min]. Assessment and Plan Maintaining Current Dose?: Yes Reason for dose change: No Dose Change Pharmacist Note Pharmacist Note Date: 01/19/20. Pharmacist note: pt has been started on Vancomycin and meropenem for possible septic emboli/abscess. She received one dose of Levaquin 750mg IV this afternoon. She has not been on vancomycin at our facility in the past and she does not have an apparent hx of MRSA. Blood cultures are pending. I have started her on Vancomycin 1g IV q8h. We will continue to monitor and make adjustments as necessary. Ryan Bautista Pharm.D. Jan 19, 2020 18:49
[2020-01-19 20:00] VITALS: BP 124/73
[2020-01-19] MEDS: MEROPENEM INJ 1 GM in IV 1 EA IV SCH (20:49)
[2020-01-20] VITALS: BP 105/73
[2020-01-20 00:18] LABS: BLOOD UREA NITROGEN 14 MG/DL (7-18); CALCIUM LEVEL 8.8 MG/DL (8.5-10.1); CARBON DIOXIDE LEVEL 26 MEQ/L (21-32); CHLORIDE LEVEL 104 MEQ/L (98-107); GLOMERULAR FILTRATION RATE > 60.0 (>60); GLUCOSE, FASTING 100 MG/DL (70-100); MAGNESIUM LEVEL 2.2 MG/DL (1.8-2.4); POTASSIUM SERUM 3.6 MEQ/L (3.5-5.1); SODIUM LEVEL 138 MEQ/L (136-145)
[2020-01-20 04:00] VITALS: BP 106/57
[2020-01-20] MEDS: MEROPENEM INJ 1 GM in IV 1 EA IV SCH ×3 (05:04→21:09)
--- NOTE | 2020-01-20 06:40 | ECHO ---
DATE OF STUDY: 01/19/2020 REFERRING PHYSICIAN: Diana Ellis MD INDICATION: Dyspnea. HEIGHT: 66 inches. WEIGHT: 190 pounds. 2D MEASUREMENTS: Aortic root 3.3 cm Proximal ascending aorta 3.6 cm Left atrium 4.2 cm Ventricular septum 1.11 cm Posterior wall 1.05 cm Left ventricle diastole 5.2 cm Left ventricle asystole 2.4 cm DOPPLER MEASUREMENTS: Aortic valve velocity 138 cm/s LVOT velocity 108 cm/s LVOT VTI 26.2 cm No aortic regurgitation. Very mild mitral regurgitation, within normal limits. Mitral E velocity 105 cm/s Mitral A velocity 63.4 cm/s Mitral deceleration time 218 ms Very mild tricuspid regurgitation, within normal limits. Estimated right ventricle systolic pressure 24-29 mmHg assuming a right atrial pressure of 5-10 mmHg. Very mild pulmonic regurgitation, within normal limits. Pulmonary acceleration time 169 ms. MITRAL ANNULAR TISSUE DOPPLER: E prime lateral 13.5 cm/s E prime septal 10.2 cm/s DESCRIPTION: Rhythm was sinus bradycardia. Image quality was good. No pericardial effusion. This was a 2D, M mode, color flow Doppler and pulse wave Doppler examination and included mitral annular tissue Doppler. CONCLUSIONS: 1. Mild left atrial enlargement. 2. Otherwise normal echocardiogram Doppler. 3. Normal left ventricle internal dimensions and wall thickness. Normal regional LV wall motion and wall thickening. Normal LV systolic function. LVEF 63% (3D). Normal LV diastolic function. 4. Suggestive of normal pulmonary artery systolic pressure and estimated right ventricle systolic pressure. Suggestive of normal central venous pressure.
--- NOTE | 2020-01-20 07:21 | ECGEPIP ---
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
[2020-01-20 08:01] VITALS: BP 101/56
[2020-01-20] MEDS: LR 1,000 ML IV SCH ×2 (08:16→17:20)
[2020-01-20] MEDS: FERROUS SULFATE 325MG TAB PO SCH (08:17)
[2020-01-20] MEDS: FLUoxetine 20 MG CAP PO SCH (08:17)
[2020-01-20] MEDS: buPROPion (WELLBUTRIN SR) 100 MG SR TAB PO SCH (08:17)
[2020-01-20] MEDS: GABAPENTIN 300 MG CAP PO SCH ×3 (08:17→21:08)
[2020-01-20] MEDS: VANCOMYCIN HCL 1,000 MG, VIAL MATE ADAPTER 1 EACH in D5W 250 ML IV SCH ×5 (08:17→17:20)
--- NOTE | 2020-01-20 09:57 | CR ---
DATE OF CONSULTATION: 01/20/2020 ATTENDING PHYSICIAN: Dr. Ellis REASON FOR CONSULTATION: Abnormal x-ray. HISTORY OF PRESENT ILLNESS: Ms. Meyer is a pleasant 29-year-old female admitted with underlying pneumonia. She had been sick several weeks ago and was seen in the emergency room, felt to have a pneumonia and was sent home on two antibiotics. She tells me that she was unable to finish either of them. A variety of reasons given. Three days prior to her admission here, she had gastrointestinal symptoms with a decreased appetite and was therefore admitted. She denies any significant fever, chest pain, cough or hemoptysis. Her main complaint really was gastrointestinal upset with nausea and vomiting. She said her significant other was admitted here with pneumonia 2 weeks ago as well. She feels well today . ALLERGIES: AMOXICILLIN and CLAVULANIC ACID. CURRENT MEDICATIONS: - meropenem - vancomycin She received one dose of Levaquin. She is on: - Wellbutrin - Prozac - Neurontin - iron PAST MEDICAL HISTORY: Significant for polysubstance abuse. She has had no IV drugs, she says, in about 8 to 10 months. She has underlying bipolar disorder with anxiety and depression, chronic anemia, history of hepatitis C, previous section and eye surgery. SOCIAL HISTORY: She lives with her significant other. She continues to smoke. FAMILY HISTORY: Significant for mental illness and hypertension. REVIEW OF SYSTEMS: As per history of present illness. Otherwise: CONSTITUTIONAL: Question of fevers, but she is not sure. HEENT: No double or blurred vision. PULMONARY: As per history of present illness. CARDIAC: No history of angina. GASTROINTESTINAL: Significant for nausea and vomiting. GENITOURINARY: Unremarkable for issues. NEUROLOGIC: Notable for chronic pain syndrome. PSYCHIATRIC: Significant for her mental illness. ENDOCRINE: Unremarkable for thyroid disease. HEMATOLOGIC: Notable for previous anemia. MUSCULOSKELETAL: Unremarkable for any new arthralgias, myalgias. PHYSICAL EXAMINATION: Currently reveals a pleasant female lying in bed in the intensive care unit (ICU). Maximum temperature (t-max) 98.4, blood pressure 106 systolic, heart 74 and regular, respiratory rate 18 and unlabored. HEENT: Otherwise, normocephalic, atraumatic. Pupils react. Neck is supple. Trachea is midline. Mucous membranes of the nose and mouth moist. Airway is class II. CHEST: Does show symmetric expansion. There are some crackles at the right base but not convincing egophony. No rubs. No rhonchi. CARDIAC: Exam is regular without gallop. Peripheral pulses palpable. No obvious edema. ABDOMEN: Mildly obese. Soft, nontender. Active bowel sounds. No convincing organomegaly or mass. EXTREMITIES: No cyanosis or clubbing. NEUROLOGIC: She is awake, alert and appropriate. PSYCHIATRIC: Normal mood and affect. Pulse oximetry 95% on room air. LABORATORIES: Most recent laboratories show a white blood cell count of 11.7, hemoglobin 8.7, platelet count 294,000, 84% segmented neutrophils, no bands. Sodium 138, potassium 3.6, chloride 104, CO2 of 26, BUN 14, creatinine 0.6. Blood gas done at the time of admission shows pH of 7.436, pCO2 of 40.2, and pO2 of 71. Toxicology screen is pending. Methicillin resistant Staphylococcus aureus (MRSA) negative. QuantiFERON Gold is pending. Chest x-ray and then CT scan of the chest shows multiple abscesses in the right chest. Of interest is clearly evidence of abscess cavities on 01/09/2020 when she was seen in the emergency room, but certainly these are progressive. IMPRESSION: 1. Pulmonary abscesses. 2. Pneumonia. The patient did not complete outpatient treatment. 3. Tobacco abuse. 4. History of intravenous drug abuse with history of hepatitis C. RECOMMENDATIONS: At this point, she is on broad spectrum antimicrobials and I believe these are quite appropriate. We will check urine for Legionella and mycoplasma. She has had an echo, which shows no vegetations. She is producing no sputum. If this were to be, I would fully expect her to look toxic and ill, which she does not. There is no hemoptysis. My suspicion is that she started with her process several weeks ago and did not complete treatment. At this point, we will continue with broad spectrum therapy. We await final cultures. She will be followed while she is here in the hospital. Further recommendations will be made in the progress record as new information becomes available.
[2020-01-20 10:17] LABS: HEMOGLOBIN 8.2 g/dl (12.0-15.5); MEAN CORPUSCULAR HEMOGLOBIN 25.5 pg (27.0-33.0); MEAN CORPUSCULAR HGB CONC 31.5 g/dl (32.0-36.5); PLATELET COUNT, AUTOMATED 357 10^3/uL (150-450); RED BLOOD COUNT 3.21 10^6/uL (4.00-5.40); WHITE BLOOD COUNT 11.4 10^3/uL (4.0-10.0)
--- NOTE | 2020-01-20 10:25 | IPNPDOC ---
Text Note Date of Service The patient was seen on 01/20/20. NOTE Subjective: Patient is a 29-year-old female with a PMHx of Chronic anemia, Hx of Hep C 2/2 IVDU, Obesity, Bipolar disorder / Anxiety / Depression, who was presented to the emergency room with complaints of nausea and vomiting that started yesterday evening. Patient reported that she was in the emergency room on 01/09/2020 for symptoms of a pneumonia and was prescribed Cefdinir and azithromycin on discharge. Patient was admitted to the hospitalist service for further evaluation and treatment. Patient was seen and examined at the bedside. Patient denies any significant chest pain, shortness of breath or palpitations. Patient does report a productiv e cough. Describes as yellowish/orange denies any further nausea, vomiting, no abdominal discomfort, diarrhea or urinary discomfort. Objective: Vitals (See below) General: Lying in bed, resting comfortably in bed, AAOx3 HEENT: NC, AT CVS: +S1S2 Lungs: Lung sounds at right lung base are diminished. No appreciable wheezing, faint rhonchi appreciated at right mid lung Abdomen: abdomen is soft without any evidence of distention or tenderness on palpation Extremities: No evidence of LE edema, - Calf tenderness Assessment and plan: Leukocytosis - likely 2/2 CAP with effusion / abscess, less likely 2/2 septic emboli, less likely 2/2 TB - Reports a productive cough with yellow / orange sputum - Hemodynamically stable and afebrile - Lactic acid negative; Leukocytosis stable - Sputum cultures / Blood cultures pending / Respiratory panel: Negative - MRSA Negative / TB Quantiferon gold: Pending - Legionella / Mycoplasma pending - ECHO 01/19: No vegetations noted - CT chest 01/18: 1. Multiple right lung cavitary masses, as described above. 2. Right-sided pleural effusion, some of which appears loculated. 3. Adenopathy, as described above. 4. Trace amount of ascites. 5. Splenomegaly. 6. Exam limitations and other findings as described above. - s/p Dexamethasone in the ER - c/w Meropenem + Vancomycin (Day #2) - Consult Pulmonology / Infectious disease s/p Nausea and Vomiting - possibly 2/2 viral enteritis, possible cyclic vomiting syndrome - Hx of Marijuana use - Lipase negative - Physical negative for tenderness - UDS pending - c/w IV hydration and symptomatic control s/p Hypokalemia - likely 2/2 vomiting (see below) - Improving - Will continue to follow and supplement Acute on Chronic Microcytic anemia - possibly 2/2 blood loss 2/2 menses - Hg baseline of 9-10 - Currently Hg is at 8; will continue to trend - Iron panel with evidence of AOCD - No evidence of blood loss currently Bipolar disorder / Anxiety / Depression - c/w Bupropion, fluoxetine, gabapentin Obesity - BMI of 30.7 - Complicating medical care DVT prophylaxis - c/w TEDs/ Sequentials Disposition: - Will get PICC line today given poor IV access - Will consult ID VS,[place], I+O VS, [place], I+O Laboratory Tests 01/19/20 17:51 01/19/20 23:42 Vital Signs Date Time Temp Pulse Resp B/P (MAP) Pulse Ox O2 Delivery O2 Flow Rate FiO2 01/20/20 08:01 98.4 83 20 101/56 (71) 95 Room Air 01/19/20 03:15 2.0 I&O- Last 24 Hours up to 6 AM 01/20/20 06:00 Intake Total 2710 ml Balance 2710 ml MILES CHAVES MD Jan 20, 2020 10:25
[2020-01-20 10:42] LABS: BLOOD UREA NITROGEN 12 MG/DL (7-18); CALCIUM LEVEL 8.1 MG/DL (8.5-10.1); CARBON DIOXIDE LEVEL 30 MEQ/L (21-32); CHLORIDE LEVEL 103 MEQ/L (98-107); CREATININE FOR GFR 0.58 MG/DL (0.55-1.30); GLOMERULAR FILTRATION RATE > 60.0 (>60); GLUCOSE, FASTING 101 MG/DL (70-100); POTASSIUM SERUM 2.6 MEQ/L (3.5-5.1); SODIUM LEVEL 139 MEQ/L (136-145)
[2020-01-20] MEDS ORDERED: POTASSIUM CHLORIDE 10 MEQ SR TABLET PO ONE ×3 (11:00→20:00)
[2020-01-20 12:00] VITALS: BP 100/56
[2020-01-20] MEDS ORDERED: LIDOCAINE 1% MDV 20ML VIAL As Ordered ONE (15:51)
[2020-01-20 16:01] VITALS: BP 111/58
[2020-01-20 18:04] LABS: VANCOMYCIN LEVEL TROUGH 11.1 UG/ML (10.0-20.0)
--- NOTE | 2020-01-20 18:14 | REP ---
Procedure: PICC line insertion with Jaswinder The procedure was performed under the direct supervision of Dr. Woods. The risks and benefits of the procedure were explained to the patient and informed consent was obtained. The procedure was performed in the ICU at the bedside. The right basilic vein was localized using ultrasound guidance. The skin was prepped and draped in a sterile fashion. 1% lidocaine was used as a local anesthetic. Using ultrasound guidance the basilic vein was cannulated and a 0.018 guidewire was inserted. The needle was removed and a 5.5 [place] dilator and peel-away sheath was inserted over the guide wire. A 5.5 [place] dual lumen catheter was cut to length of 41 cm. The dilator was removed and the catheter was inserted over the guide wire. The peel-away sheath was removed and the catheter was flushed with heparinized saline as per Hospital protocol. The catheter was affixed to the skin and a sterile dressing was applied. The patient tolerated the procedure well and there were no immediate complications. Electronically Signed by AMRIT Hinojosa 01/20/2020 05:41 P Electronically Signed by Yosi Woods MD 01/20/2020 06:05 P
[2020-01-20] MEDS: SODIUM CHLORIDE 0.9% INJ 10 ML SYR IV SCH (18:28)
[2020-01-20 18:39] LABS: BLOOD UREA NITROGEN 8 MG/DL (7-18); CALCIUM LEVEL 8.3 MG/DL (8.5-10.1); CARBON DIOXIDE LEVEL 28 MEQ/L (21-32); CHLORIDE LEVEL 105 MEQ/L (98-107); CREATININE FOR GFR 0.56 MG/DL (0.55-1.30); GLOMERULAR FILTRATION RATE > 60.0 (>60); GLUCOSE, FASTING 82 MG/DL (70-100); MAGNESIUM LEVEL 1.8 MG/DL (1.8-2.4); POTASSIUM SERUM 3.2 MEQ/L (3.5-5.1); SODIUM LEVEL 140 MEQ/L (136-145)
[2020-01-20] MEDS ORDERED: VANCOMYCIN HCL 500 MG in D5W MINI-BAG PLUS 100 ML IV ONE (19:00)
[2020-01-20 20:00] VITALS: BP 109/70
[2020-01-20] MEDS ORDERED: MAG SULF 1GM/100ML (MAG RUN) 1 GM in IV 1 EA IV ONE (20:00)
[2020-01-21] MEDS: VANCOMYCIN HCL 1,000 MG, VIAL MATE ADAPTER 1 EACH in D5W 250 ML IV SCH ×3 (00:39→20:25)
[2020-01-21 00:43] VITALS: BP 117/66
[2020-01-21] MEDS ORDERED: IBUPROFEN 400 MG TAB PO ONE (02:15)
[2020-01-21] MEDS ORDERED: IBUPROFEN 400 MG TAB As Ordered ONE (02:26)
[2020-01-21 04:00] VITALS: BP 90/55
[2020-01-21] MEDS: SODIUM CHLORIDE 0.9% INJ 10 ML SYR IV SCH ×2 (05:06→17:58)
[2020-01-21] MEDS: MEROPENEM INJ 1 GM in IV 1 EA IV SCH ×3 (05:07→21:43)
[2020-01-21 06:08] LABS: BASO % 0.2 % (0.0-1.0); EOS # 0.1 10^3/uL (0.0-0.5); EOS % 0.5 % (0.0-3.0); HEMATOCRIT 25.1 % (36.0-47.0); HEMOGLOBIN 7.9 g/dl (12.0-15.5); LYMPH # 3.1 10^3/uL (1.5-5.0); LYMPH % 31.9 % (24.0-44.0); MEAN CORPUSCULAR HEMOGLOBIN 25.6 pg (27.0-33.0); MEAN CORPUSCULAR HGB CONC 31.5 g/dl (32.0-36.5); MEAN CORPUSCULAR VOLUME 81.2 fl (80.0-96.0); MONO # 0.7 10^3/uL (0.0-0.8); MONO % 6.8 % (0.0-5.0); NEUTROPHILS # 5.8 10^3/uL (1.5-8.5); NEUTROPHILS % 59.6 % (36.0-66.0); PLATELET COUNT, AUTOMATED 362 10^3/uL (150-450); RED BLOOD COUNT 3.09 10^6/uL (4.00-5.40); WHITE BLOOD COUNT 9.8 10^3/uL (4.0-10.0)
[2020-01-21 06:36] LABS: BLOOD UREA NITROGEN 5 MG/DL (7-18); CALCIUM LEVEL 8.2 MG/DL (8.5-10.1); CARBON DIOXIDE LEVEL 30 MEQ/L (21-32); CHLORIDE LEVEL 106 MEQ/L (98-107); CREATININE FOR GFR 0.61 MG/DL (0.55-1.30); GLOMERULAR FILTRATION RATE > 60.0 (>60); GLUCOSE, FASTING 93 MG/DL (70-100); POTASSIUM SERUM 3.6 MEQ/L (3.5-5.1); SODIUM LEVEL 138 MEQ/L (136-145)
[2020-01-21 08:00] VITALS: BP 128/76
[2020-01-21] MEDS ORDERED: POTASSIUM CHLORIDE 10 MEQ SR TABLET PO ONE (08:00)
[2020-01-21] MEDS: buPROPion (WELLBUTRIN SR) 100 MG SR TAB PO SCH (08:11)
[2020-01-21] MEDS: GABAPENTIN 300 MG CAP PO SCH ×3 (08:12→20:25)
[2020-01-21] MEDS: FLUoxetine 20 MG CAP PO SCH (08:12)
[2020-01-21 09:04] LABS: ALT/SGPT 19 U/L (12-78); BILIRUBIN,DIRECT 0.2 MG/DL (0.0-0.2); BILIRUBIN,TOTAL 0.4 MG/DL (0.2-1.0); TOTAL PROTEIN 5.7 GM/DL (6.4-8.2)
--- NOTE | 2020-01-21 09:50 | IPN ---
DATE: 01/21/2020 I again attended Jenny Meyer here in the intensive care unit. The patient has been examined and the chart reviewed. T-max overnight 101.5, but afebrile this morning. Blood pressure 90 to the 120s systolic. Heart rate 60 to 70s with a sinus mechanism. Respiratory rate 16 to 18 and unlabored. Most recent laboratories show a white blood cell count of 9.8, hemoglobin 7.9, platelet count 363,000 with 59% segs and 0 bands. Sodium 138, potassium 3.6, chloride 106, CO2 30, BUN 5, creatinine 0.61. Serology is still pending. Sputum culture from 01/19/2020 grew Staphylococcus aureus as well as Strep Group F, which was quite heavy and some yeast. On exam, she is awake, alert, appropriate and quite comfortable. Denies any systemic complaints. HEENT: Otherwise normocephalic, atraumatic. Pupils react. Neck is supple. No thyromegaly or adenopathy. No jugular venous distention (JVD). Mucous membranes of nose and mouth moist. Airway is Class II. Chest shows some crackles at the left base. No convincing egophony or wheeze. No rubs. Expansion is symmetric. Cardiac exam is regular with no murmur or gallop. Peripheral pulses palpable, no edema. Abdomen soft, nontender, with active bowel sounds. No convincing organomegaly or masses. Extremities without cyanosis or clubbing. Neurologically, she is awake, alert and appropriate. Psychiatric with normal mood and affect. No new imaging today. IMPRESSION: 1. Necrotizing pneumonia with Staphylococcus and Streptococcus. 2. Pulmonary abscesses on the basis of the above. 3. Previous tobacco abuse. At this point, she is on broad spectrum antimicrobials with adequate coverage for Staph and Strep. She is to be seen by Dr. Jones later today and I will defer antimicrobials to her. At this point, her fever curve is lessening. She feels well. She has no cough. I believe she can be taken off her droplet precautions, but again await Dr. Jones's recommendation. She is eating and drinking well. No GI complaints. She is on ulcer and deep vein thrombosis (DVT) prophylaxis. Certainly, we can allow her to increase activity. I will continue to follow her for now. Further recommendations will be made in the progress record as new information becomes available.
--- NOTE | 2020-01-21 10:19 | IPNPDOC ---
Text Note Date of Service The patient was seen on 01/21/20. NOTE Subjective: Patient is a 29-year-old female with a PMHx of Chronic anemia, Hx of Hep C 2/2 IVDU, Obesity, Bipolar disorder / Anxiety / Depression, who was presented to the emergency room with complaints of nausea and vomiting that started yesterday evening. Patient reported that she was in the emergency room on 01/09/2020 for symptoms of a pneumonia and was prescribed Cefdinir and azithromycin on discharge. Patient was admitted to the hospitalist service for further evaluation and treatment. Patient was seen and examined at the bedside. Patient reports that she's feeling better today. She reports a cough with mild production. Denies any shortness of breath, nausea, vomiting, abdominal pain, diarrhea, or urinary discomfort. Objective: Vitals (See below) General: Lying in bed, resting comfortably in bed, AAOx3 HEENT: NC, AT CVS: +S1S2 Lungs: Again right lung base. Does reveal diminished lung sounds. No evidence of wheezing or crackles. Faint rhonchi appreciated at right lung field Abdomen: No distention, tenderness and remains soft Extremities: Lower extremities are free of pitting edema, - Calf tenderness Assessment and plan: s/p Leukocytosis - likely 2/2 CAP with effusion / abscess, less likely 2/2 septic emboli, less likely 2/2 TB - Reports improvement of productive cough. Denies any significant jaundice of breath - Hemodynamically stable; has had a fever yesterday - Lactic acid negative; Leukocytosis normalized - Sputum cultures 01/18: moderate growth of staph aureus, heavy growth of strep constellatus, moderate growth of yeast - Blood cultures 01/18: Negative - Respiratory panel: Negative - AFS: Negative (1 of 2) - MRSA Negative / TB Quantiferon gold: Pending - Legionella / Mycoplasma pending - ECHO 01/19: No vegetations noted - CT chest 01/18: 1. Multiple right lung cavitary masses, as described above. 2. Right-sided pleural effusion, some of which appears loculated. 3. Adenopathy, as described above. 4. Trace amount of ascites. 5. Splenomegaly. 6. Exam l imitations and other findings as described above. - s/p Dexamethasone in the ER - c/w Meropenem + Vancomycin (Day #3) - Pulmonology / Infectious disease on consultation; appreciate their input s/p Nausea and Vomiting - possibly 2/2 viral enteritis, possible cyclic vomiting syndrome - Hx of Marijuana use - Lipase negative - Physical negative for tenderness - UDS pending - c/w IV hydration and symptomatic control s/p Hypokalemia - likely 2/2 vomiting (see below) - s/p supplementation Acute on Chronic Microcytic anemia - possibly 2/2 blood loss 2/2 menses - Hg baseline of 9-10 - Currently Hg is at 8; will continue to trend - Iron panel with evidence of AOCD - No evidence of blood loss currently Bipolar disorder / Anxiety / Depression - c/w Bupropion, fluoxetine, gabapentin Obesity - BMI of 30.7 - Complicating medical care DVT prophylaxis - c/w TEDs/ Sequentials Disposition: - s/p PICC line - Awaiting clinical improvement; will DC airborne precautions once TB has been ruled out; c/w current antibiotic regimen (anticipate DC Vancomycin, if ok with ID) - Awaiting sensitivities of sputum culture VS,[place], I+O VS, [place], I+O Laboratory Tests 01/20/20 17:24 01/21/20 05:51 Vital Signs Date Time Temp Pulse Resp B/P (MAP) Pulse Ox O2 Delivery O2 Flow Rate FiO2 01/21/20 08:00 98.3 74 20 128/76 (93) 99 Room Air 01/19/20 03:15 2.0 I&O- Last 24 Hours up to 6 AM 01/21/20 06:00 Intake Total 3370 ml Output Total 200 ml Balance 3170 ml MILES CHAVES MD Jan 21, 2020 10:19
--- NOTE | 2020-01-21 10:33 | CR ---
DATE OF CONSULTATION: 01/20/2020 Asked to consult by hospitalist for evaluation of cavitary pneumonia. HISTORY OF PRESENT ILLNESS: Jenny is a 29-year-old female with a history of intravenous (IV) drug use but states not in the past 6 months who came into the emergency room on January 18 complaining of flu-like illness with fever, cough, chills. The patient had a poor appetite. She was diagnosed in the emergency room on 01/08 prior with pneumonia. Her chest x-ray had a right lung infiltrate with a pleural effusion and a question of paratracheal adenopathy. She was treated with a Z-Len and cefdinir. The patient ran out of her prescription or lost the prescription, noted worsening cough productive of greenish phlegm fever, chest fullness. She denied having a sore throat, muscle aches, fever or chills. She had been incarcerated for about four months and was released in August and had a PPD placed which was negative. PAST MEDICAL HISTORY: 1. Her past medical history is significant for multiple drug overdoses with Xanax, heroin, methamphetamine and Kelle. 2. History of bipolar disorder. 3. Anxiety and depression. 4. Chronic anemia. 5. History of hepatitis C. 6. History of IV drug use, now using illegal suboxone 7. Obesity. PAST SURGICAL HISTORY: 1. section. 2. Eye surgery. SOCIAL HISTORY: Tobacco abuse. No alcohol use. She uses heroin, methamphetamine (meth) and Kelle although states has not use recently. FAMILY HISTORY: Family history significant for hypertension, bipolar disorder. ALLERGIES: AUGMENTIN GIVES HER HIVES. MEDICATIONS: - Bupropion 100 mg every 12 hours - cefdinir 300 mg twice a day; was started on 01/09, - she had finished of Zithromax - paroxetine 40 mg daily - gabapentin 600 mg by mouth three times a day - meropenem 1 gram intravenous every 8 hours - vancomycin 1 gram IV every 8 hours REVIEW OF SYSTEMS: The patient states that she is feeling much better. Her fever has resolved. The cough is still productive of yellow greenish phlegm but improved. The chest pressure in her right chest has diminished as well. She denies hemoptysis or shortness of breath. No nausea, vomiting or diarrhea. PHYSICAL EXAMINATION: GENERAL: On physical exam she is a pleasant healthy looking female in no acute distress. VITAL SIGNS: Temperature is 98, pulse 17, respirations 18, blood pressure 109/70, O2 sat 100% on room air. HEART: Normal S1-S2. No murmurs, rubs or gallops. LUNGS: Diminished breath sounds at the right lung No wheezes crackles appreciated, no rhonchi. ABDOMEN: Soft, nontender. No visceromegaly. EXTREMITIES: No clubbing, cyanosis or edema and no peripheral stigmata of endocarditis. No conjunctival lesions. HEENT: Pupil equal and reactive. Oropharynx is clear. No thrush. Poor dentition. NECK: Neck is supple. No jugular venous distention (JVD). No bruit. BACK: No costovertebral angle (CVA) or lumbosacral tenderness. LABORATORY DATA: White count 11.4, hemoglobin 8.2, hematocrit 26, platelets 357. Sodium 140, potassium 3.2, chloride 105, bicarb 28, BUN 8, creatinine 0.56, glucose 82, calcium 8.3, magnesium 1.8, iron 80, TIBC 235, iron saturation 34, ferritin 338. Urine Legionella antigen was sent; it states it was cancelled. Mycoplasma IgM, IgG are pending. MRSA screen not detected. QuantiFERON TB Gold pending. Blood cultures are negative. Respiratory panel is negative, sputum Gram stain had moderate epithelial cells, many white cells and multiple pathogens on Gram stain including gram positive rods and gram positive cocci in pairs, chains and clusters. AFB smear is negative, the second one was not sent today. IMAGING STUDIES: CT chest shows a mediastinal adenopathy, particularly on the right side, right pleural effusion, no pericardial effusion, multiple right lung cavitary masses and the possibility of right-sided pleural effusion that may be loculated, splenomegaly. IMPRESSION: The patient is a 29-year-old female with a history of intravenous (IV) drug use, hepatitis C, bipolar disorder who came to the emergency room on January 08 for pneumonia; was treated with Zithromax and cefdinir. 10 days later has developed, cavitary pneumonia, especially involving the right lung. She has an effusion that may be loculated. Concern is she may have methicillin resistant Staphylococcus aureus (MRSA) pneumonia as the patient was appropriately treated with antibiotic with Zithromax and cefdinir. She could have a post viral pneumonia from methicillin sensitive Staphylococcus aureus (MSSA), less likely tuberculosis, this was very acute presentation although she is at risk, has been incarcerated but I suspect these are bacterial in origin. She had a QuantiFERON Gold that is pending. Other possibility would be septic emboli from right-sided endocarditis if she is still using IV drugs. Initial blood cultures were not done on January 08 and the patient presented on antibiotics after she had been on cefdinir and Zithromax and the cultures may be negative. PLAN: 1. Discussed with radiology whether this effusion should be tapped if it is loculated to rule out empyema. 2. Keep on airborne isolation until we have results of QuantiFERON Gold or to acid fast bacteria (AFB) smears and negative. Echocardiogram has already been done which showed mild left atrial enlargement. Left ventricle of normal thickness and ejection fraction as 63%. 3. As far as her hepatitis C she will be treated as an outpatient. Her AST is 116, ALT 38. MTDD
[2020-01-21 12:00] VITALS: BP 116/60
[2020-01-21] MEDS ORDERED: VANCOMYCIN HCL 1,000 MG, VIAL MATE ADAPTER 1 EACH in D5W 250 ML IV ONE (17:00)
[2020-01-21 20:00] VITALS: BP 110/55
[2020-01-22 04:00] VITALS: BP 101/56
[2020-01-22 04:24] LABS: BASO % 0.4 % (0.0-1.0); EOS # 0.1 10^3/uL (0.0-0.5); EOS % 0.7 % (0.0-3.0); HEMATOCRIT 25.5 % (36.0-47.0); LYMPH # 3.5 10^3/uL (1.5-5.0); MEAN CORPUSCULAR HEMOGLOBIN 25.4 pg (27.0-33.0); MEAN CORPUSCULAR HGB CONC 31.4 g/dl (32.0-36.5); MONO # 0.7 10^3/uL (0.0-0.8); MONO % 6.2 % (0.0-5.0); NEUTROPHILS # 6.5 10^3/uL (1.5-8.5); NEUTROPHILS % 59.9 % (36.0-66.0); PLATELET COUNT, AUTOMATED 364 10^3/uL (150-450); RED BLOOD COUNT 3.15 10^6/uL (4.00-5.40); WHITE BLOOD COUNT 10.9 10^3/uL (4.0-10.0)
[2020-01-22 04:40] LABS: BLOOD UREA NITROGEN 4 MG/DL (7-18); CALCIUM LEVEL 7.7 MG/DL (8.5-10.1); CARBON DIOXIDE LEVEL 27 MEQ/L (21-32); CHLORIDE LEVEL 105 MEQ/L (98-107); CREATININE FOR GFR 0.53 MG/DL (0.55-1.30); GLOMERULAR FILTRATION RATE > 60.0 (>60); GLUCOSE, FASTING 94 MG/DL (70-100); SODIUM LEVEL 139 MEQ/L (136-145); VANCOMYCIN LEVEL TROUGH 13.2 UG/ML (10.0-20.0)
[2020-01-22] MEDS: VANCOMYCIN HCL 1,000 MG, VIAL MATE ADAPTER 1 EACH in D5W 250 ML IV SCH ×3 (05:01→20:32)
[2020-01-22] MEDS ORDERED: VANCOMYCIN HCL 500 MG in D5W MINI-BAG PLUS 100 ML IV ONE (06:00)
[2020-01-22] MEDS: SODIUM CHLORIDE 0.9% INJ 10 ML SYR IV SCH ×2 (06:05→15:57)
[2020-01-22] MEDS: MEROPENEM INJ 1 GM in IV 1 EA IV SCH ×2 (06:06→14:00)
[2020-01-22 08:00] VITALS: BP 119/74
[2020-01-22] MEDS: buPROPion (WELLBUTRIN SR) 100 MG SR TAB PO SCH (08:28)
[2020-01-22] MEDS: GABAPENTIN 300 MG CAP PO SCH ×3 (08:28→20:32)
[2020-01-22] MEDS: FLUoxetine 20 MG CAP PO SCH (08:28)
--- NOTE | 2020-01-22 08:32 | IPN ---
DATE: 01/22/2020 Jenny was seen in the ICU while rounding for the hospitalist. She has a long history of IVDA, was admitted with multiple right lung cavitary masses, possible right pleural effusion. She is on meropenem and vancomycin. Pulmonary and infectious disease have been consulted. Transthoracic echo did not show any vegetations. Overall, she feels about the same as yesterday, maybe a little less short of breath. PHYSICAL EXAMINATION: T-max 101.5, current temperature 98.9, blood pressure 101/56, pulse 74, respiratory rate 16, 96% oxygen saturation. General appearance: Alert and conversant, in on distress. Lungs a few rhonchi. Heart regular rhythm. Abdomen soft, nontender. No peripheral edema. LABORATORIES: Electrolytes unremarkable. Albumin low at 2.0. White count 10.9. Hemoglobin 8. Platelets 364. Methicillin-resistant Staphylococcus aureus (MRSA) screen is negative. TB GOLD test is negative. Sputum grew out Staphylococcus as well as Group F Strep and yeast like organism. Staphylococcus still being fully identified. IMPRESSION: 1. Multiple right sided pulmonary cavitary masses, suspicious for septic emboli. Continue IV antibiotics with meropenem and vancomycin. Infectious disease has been consulted. Waiting for Staphylococcus to be fully identified and waiting for TB workup to be completed. 2. Anemia secondary to chronic illness as well as some iron deficiency. 3. Bipolar disorder and other various psychiatric complaints. Continue current psychiatric medications. 4. History of polydrug abuse. No signs of active withdrawal at this point.
--- NOTE | 2020-01-22 09:50 | IPN ---
DATE: 01/22/2020 I again attended Jenny Meyer here in the intensive care unit. The patient has been examined and the chart reviewed. T-max overnight 98.9. Blood pressure in the 100s. Heart rate in the 70s with a sinus mechanism. Respiratory rate 16 to 18 and unlabored. Most recent laboratories show a white blood cell count of 10.9, hemoglobin 8.0, platelet count of 364,000 with 60% segs and 0 bands. Sodium 139, potassium 4.0, chloride 105, CO2 27, BUN 4, creatinine 0.53. Cultures as noted yesterday with Staph and Strep with some occasional yeast. AFB negative. Mycoplasma, Legionella and QuantiFERON Gold are pending. On exam, she is awake, alert and appropriate and quite comfortable. HEENT: Shows her pupils are reactive, sclerae are clear. Trachea is in the midline. Chest shows decreased breath sounds at the extreme right base, some faint crackles at the right base, but no convincing rub or wheeze. Left chest is clear. Cardiac Exam: Regular with no gallop. Peripheral pulses palpable. No edema. There is no murmur. Abdomen: Soft. Nontender. Active bowel sounds. No convincing organomegaly or masses. Extremities: Without cyanosis or clubbing. Neurologically, she is awake, alert and appropriate. Psychiatric: Normal mood and affect. IMPRESSION: 1. Pulmonary abscesses/necrotizing pneumonia. 2. Inhalational abuse. 3. Previous drug abuse, IV. 4. Hepatitis C. RECOMMENDATIONS: My suspicion is this is all on the basis of incomplete therapy for pneumonia several weeks ago as she did not finish her course of antimicrobials. Likely started as a community acquired process. On her film from 01/09/2020, she clearly has a cavity visible on the lateral film. I had a long discussion with her again regarding the absolute need to complete therapy. Infectious diseases is now involved in her care. I will at this point follow her loosely, but will be more than happy to become reinvolved in her care at any point in time if my assistance is felt to be required.
[2020-01-22 15:50] VITALS: BP 108/64
[2020-01-22 22:00] VITALS: BP 110/77
[2020-01-22] MEDS: SODIUM CHLORIDE 0.9% INJ 10 ML SYR IV PRN (22:08)
[2020-01-22] MEDS ORDERED: ACETAMINOPHEN TAB 650MG DOSE (2X325MG) PO ONE (22:30)
[2020-01-23 00:10] LABS: MYCOPLASMA PNEUMONIAE IgG 2860 U/mL (0-99); MYCOPLASMA PNEUMONIAE IgM 1272 U/mL (0-769)
[2020-01-23] MEDS: VANCOMYCIN HCL 1,000 MG, VIAL MATE ADAPTER 1 EACH in D5W 250 ML IV SCH (04:33)
[2020-01-23 06:00] VITALS: BP 98/66
[2020-01-23] MEDS: SODIUM CHLORIDE 0.9% INJ 10 ML SYR IV SCH ×2 (06:04→17:22)
[2020-01-23 06:29] LABS: BASO % 0.3 % (0.0-1.0); EOS # 0.2 10^3/uL (0.0-0.5); EOS % 2.2 % (0.0-3.0); HEMATOCRIT 26.8 % (36.0-47.0); HEMOGLOBIN 8.4 g/dl (12.0-15.5); LYMPH # 2.4 10^3/uL (1.5-5.0); LYMPH % 31.4 % (24.0-44.0); MEAN CORPUSCULAR HEMOGLOBIN 25.8 pg (27.0-33.0); MEAN CORPUSCULAR HGB CONC 31.3 g/dl (32.0-36.5); MEAN CORPUSCULAR VOLUME 82.2 fl (80.0-96.0); MONO # 0.6 10^3/uL (0.0-0.8); NEUTROPHILS # 4.4 10^3/uL (1.5-8.5); NEUTROPHILS % 57.2 % (36.0-66.0); RED BLOOD COUNT 3.26 10^6/uL (4.00-5.40); WHITE BLOOD COUNT 7.7 10^3/uL (4.0-10.0)
[2020-01-23 06:47] LABS: BLOOD UREA NITROGEN 4 MG/DL (7-18); CALCIUM LEVEL 8.1 MG/DL (8.5-10.1); CARBON DIOXIDE LEVEL 25 MEQ/L (21-32); CHLORIDE LEVEL 109 MEQ/L (98-107); CREATININE FOR GFR 0.52 MG/DL (0.55-1.30); GLOMERULAR FILTRATION RATE > 60.0 (>60); GLUCOSE, FASTING 98 MG/DL (70-100); MAGNESIUM LEVEL 2.3 MG/DL (1.8-2.4); POTASSIUM SERUM 3.6 MEQ/L (3.5-5.1); SODIUM LEVEL 140 MEQ/L (136-145)
[2020-01-23] MEDS: GABAPENTIN 300 MG CAP PO SCH ×3 (09:45→22:03)
[2020-01-23] MEDS: buPROPion (WELLBUTRIN SR) 100 MG SR TAB PO SCH (09:46)
[2020-01-23] MEDS: FLUoxetine 20 MG CAP PO SCH (09:46)
--- NOTE | 2020-01-23 13:55 | IPN ---
DATE OF VISIT: 01/21/2020 HISTORY: The patient is feeling better. She has had some fevers up to 101.5, mild cough mostly nonproductive. No nausea, vomiting or diarrhea. No abdominal pain and no shortness of breath. She is just feels some heaviness in her right chest. VITAL SIGNS: Temperature is 101.5 overnight but currently 98.8, pulse 68, respirations 18, blood pressure 90/55, O2 sat 94% on room air. HEART: Normal S1, S2. No murmurs, rubs or gallops. LUNGS: Left side is clear. Right side with diminished breath sounds at the bases with a few crackles. Good air entry. ABDOMEN: Soft, nontender. No hepatosplenomegaly. EXTREMITIES: No clubbing, cyanosis or edema. No track sal obvious on her arms or legs. No petechiae and no lesions. She has multiple tattoos. LABORATORY DATA: White count 9.8, hemoglobin 7.9, hematocrit 25.1, platelets 362, 59% neutrophils, 32% lymphocytes, 7% monocytes. Sodium 138, potassium 3.6, chloride 106, bicarb 30, BUN 5, creatinine 0.61, glucose 93, calcium 8.2, magnesium 2, AST 18, ALT 19, alk phos 41. Vancomycin trough is 12.9. Sputum culture had staphylococcus (Staph) aureus, Streptococcus (Strep) constellatus, group F yeastlike organism. Blood cultures, two sets from 01/18 are no growth after 48 hours and acid-fast bacillus (AFB) smear is negative. QuantiFERON TB Gold was negative. IMPRESSION: 1. Necrotizing pneumonia of the right lung with culture positive for Staphylococcus aureus and group F Streptococcus. On IV vancomycin and meropenem pending results of final staph aureus culture. I will discontinue meropenem at this point as she only has gram positives. 2. History of drug abuse. No IV drug use in over six months. She has been using illegally Suboxone. This makes endocarditis less likely and the fact that she has negative cultures as well. Transthoracic echocardiogram is negative. 3. Persistent fever likely from necrotizing pneumonia but if fever persists please obtain followup chest x-rays as to rule out an empyema. 4. History of hepatitis C. Will need to be addressed at a later time as an outpatient. PLAN: Discontinue airborne isolation. The patient has a negative acid fast bacillus (AFB) smear and positive culture for staph aureus. Continue with droplet isolation. Discontinue IV meropenem. if methicillin sensitive Staphylococcus aureus (MSSA) on culture the patient could be switched to cefazolin as she is ALLERGIC TO AMOXICILLIN.
[2020-01-23 14:00] VITALS: BP 104/60
--- NOTE | 2020-01-23 15:29 | IPNPDOC ---
Date Seen The patient was seen on 01/23/20. Progress Note SUBJECTIVE: Patient reports feeling comfortable and does not report any pain or discomfort. Remained afebrile overnight, HR slightly elevated last night but had since normalized. Leukocytosis resolved, WBC 7.7 this AM. OBJECTIVE PHYSICAL EXAMINATION: VITAL SIGNS: Please see below. General: No acute distress, Alert Eyes: Normal sclera, EOMI HENT: Atraumatic Cardiovascular: Normal rate, normal rhythm. Pulmonary: Clear to auscultation b/l, no wheezing GI: Soft, nontender, nondistended Skin: Warm and dry Neuro: CN grossly intact. No focal deficits. Strengths equal b/l. Psych: oriented x 3 LABORATORY DATA, IMAGING STUDIES, MICROBIOLOGY: Please see below. DVT prophylaxis ordered?: Lovenox ASSESSMENT AND PLAN: 1. Pulmonary cavitary lesions likely 2/2 necrotizing pneumonia - ECHO does not show evidence of vegetations in setting of IVDU history, unlikely to be septic emboli. - Quantiferon and AFB negative, also unlikely to be TB. - Blood cultures NTD. Sputum culture + s. aureus, strep group F. ID following. - Was on vancomycin and meropenem, transitioned to Cefazolin in setting of penicillin allergy. - ID following. 2. Bipolar disorder - c/w home med Buproprion and duloxetine. 3. hx polysubstance abuse VS, I&O, 24H, Fishbone Vital Signs/I&O Vital Signs Date Time Temp Pulse Resp B/P (MAP) Pulse Ox O2 Delivery O2 Flow Rate FiO2 01/23/20 06:00 98.2 59 17 98/66 (77) 97 Room Air 01/19/20 03:15 2.0 I&O- Last 24 Hours up to 6 AM 01/23/20 06:00 Intake Total 2085 ml Output Total 300 ml Balance 1785 ml Laboratory Data 24H LABS Laboratory Tests 2 01/23/20 06:17: Immature Granulocyte % (Auto) 0.9, Neutrophils (%) (Auto) 57.2, Lymphocytes (%) (Auto) 31.4, Monocytes (%) (Auto) 8.0H, Eosinophils (%) (Auto) 2.2, Basophils (%) (Auto) 0.3, Neutrophils # (Auto) 4.4, Lymphocytes # (Auto) 2.4, Monocytes # (Auto) 0.6, Eosinophils # (Auto) 0.2, Basophils # (Auto) 0.0, Nucleated Red Blood Cells % (auto) 0.0, Anion Gap 6L, Glomerular Filtration Rate > 60.0, Calcium Level 8.1L, Magnesium Level 2.3 CBC/BMP Laboratory Tests 01/23/20 06:17 Microbiology Microbiology 01/19/20 Acid Fast Stain - Final, Resulted 01/19/20 Mycobacterial Culture, Resulted Pending 01/19/20 Blood Culture - Preliminary, Resulted No Growth after 72 hours. All specime... 01/19/20 Blood Culture - Preliminary, Resulted No Growth after 72 hours. All specime... 01/19/20 Gram Stain - Final, Complete 01/19/20 Sputum Culture - Final, Complete Staphylococcus Aureus Strep (Group F) Constellatus Yeast Like Organism 01/19/20 Blood Culture - Preliminary, Resulted No Growth after 72 hours. All specime... 01/19/20 Respiratory Virus Panel (PCR) ([facility]) - Final, Complete SKYE TILLMAN MD Jan 23, 2020 15:28
[2020-01-23] MEDS: ceFAZolin SOD 2 GM in IV 1 EA IV SCH ×2 (16:07→22:03)
[2020-01-23 22:00] VITALS: BP 122/75
[2020-01-24] MEDS: SODIUM CHLORIDE 0.9% INJ 10 ML SYR IV SCH ×2 (05:39→17:14)
[2020-01-24 05:56] LABS: BASO % 0.4 % (0.0-1.0); EOS # 0.2 10^3/uL (0.0-0.5); EOS % 2.4 % (0.0-3.0); HEMATOCRIT 26.1 % (36.0-47.0); LYMPH # 2.6 10^3/uL (1.5-5.0); LYMPH % 34.1 % (24.0-44.0); MEAN CORPUSCULAR HEMOGLOBIN 25.4 pg (27.0-33.0); MEAN CORPUSCULAR HGB CONC 30.7 g/dl (32.0-36.5); MEAN CORPUSCULAR VOLUME 82.9 fl (80.0-96.0); MONO # 0.6 10^3/uL (0.0-0.8); MONO % 8.1 % (0.0-5.0); NEUTROPHILS # 4.2 10^3/uL (1.5-8.5); NEUTROPHILS % 54.2 % (36.0-66.0); PLATELET COUNT, AUTOMATED 353 10^3/uL (150-450); RED BLOOD COUNT 3.15 10^6/uL (4.00-5.40); WHITE BLOOD COUNT 7.7 10^3/uL (4.0-10.0)
[2020-01-24 06:00] VITALS: BP 113/63
[2020-01-24 06:16] LABS: BLOOD UREA NITROGEN 7 MG/DL (7-18); CALCIUM LEVEL 8.1 MG/DL (8.5-10.1); CARBON DIOXIDE LEVEL 29 MEQ/L (21-32); CHLORIDE LEVEL 106 MEQ/L (98-107); CREATININE FOR GFR 0.57 MG/DL (0.55-1.30); GLOMERULAR FILTRATION RATE > 60.0 (>60); GLUCOSE, FASTING 88 MG/DL (70-100); MAGNESIUM LEVEL 2.3 MG/DL (1.8-2.4); POTASSIUM SERUM 4.2 MEQ/L (3.5-5.1); SODIUM LEVEL 139 MEQ/L (136-145)
[2020-01-24] MEDS: ceFAZolin SOD 2 GM in IV 1 EA IV SCH ×3 (07:06→23:14)
[2020-01-24] MEDS: GABAPENTIN 300 MG CAP PO SCH ×3 (08:25→20:51)
[2020-01-24] MEDS: FLUoxetine 20 MG CAP PO SCH (08:26)
[2020-01-24] MEDS: buPROPion (WELLBUTRIN SR) 100 MG SR TAB PO SCH (08:26)
[2020-01-24] MEDS: SODIUM CHLORIDE 0.9% INJ 10 ML SYR IV PRN ×2 (08:27→18:05)
[2020-01-24] MEDS: ENOXAPARIN 40 MG/0.4 ML SYRINGE (J1650) SC SCH (08:28)
--- NOTE | 2020-01-24 13:53 | IPNPDOC ---
Date Seen The patient was seen on 01/24/20. Progress Note SUBJECTIVE: Patient reports a persistent mild cough but otherwise denies any other compla ints. Afebrile overnight. No chest pain or SOB. OBJECTIVE PHYSICAL EXAMINATION: VITAL SIGNS: Please see below. General: No acute distress, Alert Eyes: Normal sclera, EOMI HENT: Atraumatic Cardiovascular: Normal rate, normal rhythm. Pulmonary: Clear to auscultation b/l, no wheezing GI: Soft, nontender, nondistended Skin: Warm and dry Neuro: CN grossly intact. No focal deficits. Strengths equal b/l. Psych: oriented x 3 LABORATORY DATA, IMAGING STUDIES, MICROBIOLOGY: Please see below. DVT prophylaxis ordered?: Lovenox ASSESSMENT AND PLAN: 1. Pulmonary cavitary lesions likely 2/2 necrotizing pneumonia - Hx IVDU. ECHO does not show evidence of vegetations, reportedly has not used IVD in over 6 months, unlikely to be septic emboli. - Quantiferon and AFB negative, also unlikely to be TB. - Blood cultures NTD. Sputum culture + s. aureus, strep group F. ID following. - Was on vancomycin and meropenem, transitioned to Cefazolin in setting of penicillin allergy. - ID following. Due to question of compliance, will see if patient can be arrange for Dalvance infusion. 2. Bipolar disorder - c/w home med Buproprion and duloxetine. 3. hx polysubstance abuse 4. hx Hepatitis C - To follow with ID post discharge. DVT ppx: Lovenox Disposition: Likely discharge home tomorrow if medications can be arranged. VS, I&O, 24H, Fishbone Vital Signs/I&O Vital Signs Date Time Temp Pulse Resp B/P (MAP) Pulse Ox O2 Delivery O2 Flow Rate FiO2 01/24/20 06:00 97.7 73 16 113/63 (80) 95 Room Air 01/19/20 03:15 2.0 I&O- Last 24 Hours up to 6 AM 01/24/20 05:59 Intake Total 880 ml Output Total 300 ml Balance 580 ml Laboratory Data 24H LABS Laboratory Tests 2 01/24/20 05:34: Immature Granulocyte % (Auto) 0.8, Neutrophils (%) (Auto) 54.2, Lymphocytes (%) (Auto) 34.1, Monocytes (%) (Auto) 8.1H, Eosinophils (%) (Auto) 2.4, Basophils (%) (Auto) 0.4, Neutrophils # (Auto) 4.2, Lymphocytes # (Auto) 2.6, Monocytes # (Auto) 0.6, Eosinophils # (Auto) 0.2, Basophils # (Auto) 0.0, Nucleated Red Blood Cells % (auto) 0.0, Anion Gap 4L, Glomerular Filtration Rate > 60.0, Calcium Level 8.1L, Magnesium Level 2.3 CBC/BMP Laboratory Tests 01/24/20 05:34 Microbiology Microbiology 01/19/20 Acid Fast Stain - Final, Resulted 01/19/20 Mycobacterial Culture, Resulted Pending 01/19/20 Blood Culture - Preliminary, Resulted No Growth after 72 hours. All specime... 01/19/20 Blood Culture - Preliminary, Resulted No Growth after 72 hours. All specime... 01/19/20 Gram Stain - Final, Complete 01/19/20 Sputum Culture - Final, Complete Staphylococcus Aureus Strep (Group F) Constellatus Yeast Like Organism 01/19/20 Blood Culture - Final, Complete NO GROWTH AFTER 5 DAYS 01/19/20 Respiratory Virus Panel (PCR) ([facility]) - Final, Complete SKYE TILLMAN MD Jan 24, 2020 13:53
[2020-01-24 14:00] VITALS: BP 121/80
--- NOTE | 2020-01-24 17:06 | IPN ---
DATE: 01/24/2020 Jenny seems to be doing great. She is anxious to go home. She has had no fever or chills. She still has a cough but no hemoptysis. Cough is mostly productive of yellow phlegm. Her last fever was on January 20. No nausea, vomiting or diarrhea. No abdominal pain. The patient would go back to live with her parents and has an appointment to see Dr. Black for Suboxone. She agrees on being compliant and following with her doctor appointment. LABORATORY DATA White count is 7.7, hemoglobin 8, hematocrit 26.1, platelets 353, 54% neutrophils, 34% lymphocytes, 8% monocytes. Sodium 139, potassium 4.2, chloride 106, bicarb 29, BUN 7, creatinine 0.57, glucose 88, calcium 8.1, magnesium 2.3. PHYSICAL EXAMINATION: Temperature is 97.7, pulse 73, respirations 16, blood pressure 113/63, O2 sat 95% on room air. Heart: Normal S1, S2. No murmurs appreciated. Lungs: Few crackles at the right base. Good air entry. No wheezing. GI: Abdomen soft, nontender. No hepatosplenomegaly. Extremities: No clubbing, cyanosis or edema. No calf tenderness. No rashes. Multiple tattoos. LABORATORY DATA White count 7.7, hemoglobin 8, hematocrit 26.1, platelets 353. Sodium 139, potassium 4.2, chloride 106, bicarb 29, BUN 7, creatinine 0.57, glucose 88, calcium 8.1, magnesium 2.3. Mycoplasma IgM and IgG were both positive 1272 and 2860. Urine Legionella antigen was negative. TB QuantiFERON Gold negative. IMAGING STUDIES Multiple right lung cavitary masses, right-sided pleural effusion some of which appear to be loculated. Trace amount of ascites and splenomegaly. Sputum culture had MSSA and Streptococcus constellatus yeastlike organism. Blood cultures were negative and respiratory panel was negative. AFB smear was negative. Cultures pending. IMPRESSION 1. Necrotizing pneumonia right lung, doing much better on IV cefazolin due to the fact that she had a history of noncompliance and history of drug abuse. I suggest that she gets treated with IV Dalvance 1.5 grams infusion to be given on the day of discharge or after discharge and repeat in 7-10 days for second dose. 2. Positive mycoplasma IgM and IgG. This is definitely not mycoplasma pneumonia with necrosis. The patient has received 5 days of Zithromax. Just make sure that the patient has finished that prescription although my suspicion of Mycoplasma is very low. 3. History of hepatitis C with a positive RNA. The patient needs to follow up at infectious disease in 2 weeks. 4. History of IV drug use, heroin use. The patient will followup with Dr. Black for Suboxone as soon as she is discharged. PLAN She will be going back to her parents. I have discussed the case with Khushboo regarding IV Dalvance. I would recommend that she gets that at our infusion unit because she has a very poor IV access and home nurses from [facility] would be difficult to find an IV.
[2020-01-24 22:00] VITALS: BP 128/82
[2020-01-25 06:00] VITALS: BP 123/58
[2020-01-25] MEDS: SODIUM CHLORIDE 0.9% INJ 10 ML SYR IV SCH ×2 (06:06→18:06)
[2020-01-25] MEDS: ceFAZolin SOD 2 GM in IV 1 EA IV SCH ×3 (06:07→23:20)
[2020-01-25 06:09] LABS: BASO % 0.3 % (0.0-1.0); EOS # 0.1 10^3/uL (0.0-0.5); EOS % 2.4 % (0.0-3.0); HEMATOCRIT 26.3 % (36.0-47.0); LYMPH # 2.4 10^3/uL (1.5-5.0); LYMPH % 42.1 % (24.0-44.0); MEAN CORPUSCULAR HEMOGLOBIN 25.5 pg (27.0-33.0); MEAN CORPUSCULAR HGB CONC 30.4 g/dl (32.0-36.5); MEAN CORPUSCULAR VOLUME 83.8 fl (80.0-96.0); MONO # 0.5 10^3/uL (0.0-0.8); MONO % 9.4 % (0.0-5.0); NEUTROPHILS # 2.6 10^3/uL (1.5-8.5); NEUTROPHILS % 44.9 % (36.0-66.0); PLATELET COUNT, AUTOMATED 326 10^3/uL (150-450); RED BLOOD COUNT 3.14 10^6/uL (4.00-5.40); WHITE BLOOD COUNT 5.7 10^3/uL (4.0-10.0)
[2020-01-25 06:31] LABS: BLOOD UREA NITROGEN 12 MG/DL (7-18); C REACTIVE PROTEIN QUANTITATIV 1.72 MG/DL (0.00-0.30); CALCIUM LEVEL 8.2 MG/DL (8.5-10.1); CARBON DIOXIDE LEVEL 29 MEQ/L (21-32); CHLORIDE LEVEL 107 MEQ/L (98-107); CREATININE FOR GFR 0.58 MG/DL (0.55-1.30); GLOMERULAR FILTRATION RATE > 60.0 (>60); GLUCOSE, FASTING 88 MG/DL (70-100); MAGNESIUM LEVEL 2.2 MG/DL (1.8-2.4); SODIUM LEVEL 139 MEQ/L (136-145)
[2020-01-25] MEDS: GABAPENTIN 300 MG CAP PO SCH ×3 (09:53→20:33)
[2020-01-25] MEDS: FLUoxetine 20 MG CAP PO SCH (09:53)
[2020-01-25] MEDS: ENOXAPARIN 40 MG/0.4 ML SYRINGE (J1650) SC SCH (09:53)
[2020-01-25] MEDS: buPROPion (WELLBUTRIN SR) 100 MG SR TAB PO SCH (09:53)
--- NOTE | 2020-01-25 12:13 | IPNPDOC ---
Date Seen The patient was seen on 01/25/20. Progress Note SUBJECTIVE: Mild cough persistent, afebrile overnight. Denies any particular complaints, has concern about her PNA and ability to obtain IV access for outpatient Dalvance. OBJECTIVE PHYSICAL EXAMINATION: VITAL SIGNS: Please see below. General: No acute distress, Alert Eyes: Normal sclera, EOMI HENT: Atraumatic Cardiovascular: Normal rate, normal rhythm. Pulmonary: Clear to auscultation b/l, no wheezing GI: Soft, nontender, nondistended Skin: Warm and dry Neuro: CN grossly intact. No focal deficits. Strengths equal b/l. Psych: oriented x 3 LABORATORY DATA, IMAGING STUDIES, MICROBIOLOGY: Please see below. DVT prophylaxis ordered?: Lovenox ASSESSMENT AND PLAN: 1. Pulmonary cavitary lesions likely 2/2 necrotizing pneumonia - Hx IVDU. ECHO does not show evidence of vegetations, reportedly has not used IVD in over 6 months, unlikely to be septic emboli. - Quantiferon and AFB negative, also unlikely to be TB. - Blood cultures NTD. Sputum culture + s. aureus, strep group F. ID following. - Was on vancomycin and meropenem, transitioned to Cefazolin in setting of penic illin allergy. - ID following. Arranged for dalvance infusion on monday, trying to get patient to get infusion at our infusion unit instead of visiting home nurse due to difficulty obtaining access and patient is very concern about it. 2. Bipolar disorder - c/w home med Buproprion and duloxetine. 3. hx polysubstance abuse 4. hx Hepatitis C - To follow with ID post discharge. DVT ppx: Lovenox Disposition: Likely discharge home tomorrow if medications can be arranged. VS, I&O, 24H, Fishbone Vital Signs/I&O Vital Signs Date Time Temp Pulse Resp B/P (MAP) Pulse Ox O2 Delivery O2 Flow Rate FiO2 01/25/20 06:00 98.2 54 15 123/58 (79) 96 Room Air 01/19/20 03:15 2.0 I&O- Last 24 Hours up to 6 AM 01/25/20 06:00 Intake Total 1220 ml Balance 1220 ml Laboratory Data 24H LABS Laboratory Tests 2 01/25/20 05:38: Immature Granulocyte % (Auto) 0.9, Neutrophils (%) (Auto) 44.9, Lymphocytes (%) (Auto) 42.1, Monocytes (%) (Auto) 9.4H, Eosinophils (%) (Auto) 2.4, Basophils (%) (Auto) 0.3, Neutrophils # (Auto) 2.6, Lymphocytes # (Auto) 2.4, Monocytes # (Auto) 0.5, Eosinophils # (Auto) 0.1, Basophils # (Auto) 0.0, Nucleated Red Blood Cells % (auto) 0.0, Anion Gap 3L, Glomerular Filtration Rate > 60.0, Calcium Level 8.2L, Magnesium Level 2.2, C-Reactive Protein, Quantitative 1.72H CBC/BMP Laboratory Tests 01/25/20 05:38 Microbiology Microbiology 01/19/20 Acid Fast Stain - Final, Resulted 01/19/20 Mycobacterial Culture, Resulted Pending 01/19/20 Blood Culture - Final, Complete NO GROWTH AFTER 5 DAYS 01/19/20 Blood Culture - Final, Complete NO GROWTH AFTER 5 DAYS 01/19/20 Gram Stain - Final, Complete 01/19/20 Sputum Culture - Final, Complete Staphylococcus Aureus Strep (Group F) Constellatus Yeast Like Organism 01/19/20 Blood Culture - Final, Complete NO GROWTH AFTER 5 DAYS 01/19/20 Respiratory Virus Panel (PCR) ([facility]) - Final, Complete SKYE TILLMAN MD Jan 25, 2020 12:13
[2020-01-25 14:00] VITALS: BP 123/58
[2020-01-25] MEDS: SODIUM CHLORIDE 0.9% INJ 10 ML SYR IV PRN ×2 (16:38→23:21)
[2020-01-25 22:00] VITALS: BP 118/66
[2020-01-26 06:00] VITALS: BP 103/59
[2020-01-26 06:10] LABS: BASO % 0.5 % (0.0-1.0); EOS # 0.1 10^3/uL (0.0-0.5); EOS % 2.3 % (0.0-3.0); HEMATOCRIT 27.3 % (36.0-47.0); HEMOGLOBIN 8.2 g/dl (12.0-15.5); LYMPH # 2.3 10^3/uL (1.5-5.0); MEAN CORPUSCULAR HEMOGLOBIN 25.4 pg (27.0-33.0); MEAN CORPUSCULAR VOLUME 84.5 fl (80.0-96.0); MONO # 0.4 10^3/uL (0.0-0.8); MONO % 7.9 % (0.0-5.0); NEUTROPHILS # 2.7 10^3/uL (1.5-8.5); NEUTROPHILS % 47.6 % (36.0-66.0); PLATELET COUNT, AUTOMATED 314 10^3/uL (150-450); RED BLOOD COUNT 3.23 10^6/uL (4.00-5.40); WHITE BLOOD COUNT 5.6 10^3/uL (4.0-10.0)
[2020-01-26 06:25] LABS: BLOOD UREA NITROGEN 14 MG/DL (7-18); CALCIUM LEVEL 8.1 MG/DL (8.5-10.1); CARBON DIOXIDE LEVEL 30 MEQ/L (21-32); CHLORIDE LEVEL 106 MEQ/L (98-107); GLOMERULAR FILTRATION RATE > 60.0 (>60); GLUCOSE, FASTING 88 MG/DL (70-100); MAGNESIUM LEVEL 2.1 MG/DL (1.8-2.4); POTASSIUM SERUM 4.2 MEQ/L (3.5-5.1); SODIUM LEVEL 140 MEQ/L (136-145)
[2020-01-26] MEDS: SODIUM CHLORIDE 0.9% INJ 10 ML SYR IV SCH (06:56)
[2020-01-26] MEDS: ceFAZolin SOD 2 GM in IV 1 EA IV SCH (06:57)
[2020-01-26] MEDS: GABAPENTIN 300 MG CAP PO SCH (09:29)
[2020-01-26] MEDS: buPROPion (WELLBUTRIN SR) 100 MG SR TAB PO SCH (09:29)
[2020-01-26] MEDS: FLUoxetine 20 MG CAP PO SCH (09:29)
[2020-01-26] MEDS: ENOXAPARIN 40 MG/0.4 ML SYRINGE (J1650) SC SCH (09:30)
[2020-01-26] MEDS ORDERED: CEFD300CAP PO (10:29)
[2020-01-26] MEDS ORDERED: AZIT500T5 PO (10:32)
--- NOTE | 2020-01-26 10:47 | DS.PDOC ---
Discharge Summary General Date of Admission Jan 19, 2020 at 02:37 Date of Discharge 01/26/2020 Discharge Summary PROCEDURES PERFORMED DURING STAY: PICC line insertion ADMITTING DIAGNOSES: 1. SIRS with tachycardia and leukocytosis 2. Hypokalemia 3. Vomiting 4. Acute on chronic microcytic anemia 5. Bipolar disorder w/ anxiety and depression 6. Obesity with BMI 30.7 DISCHARGE DIAGNOSES: 1. Pulmonary cavitary lesions 2/2 necrotizing pneumonia 2. Hypokalemia 3. Vomiting 4. Acute on chronic microcytic anemia 5. Bipolar disorder w/ anxiety and depression 6. Obesity with BMI 30.7 7. Hepatitis C COMPLICATIONS/CHIEF COMPLAINT: Anemia, Gastroenteritis, Hypokalemia. HISTORY OF PRESENT ILLNESS: "This 29-year-old female presents to the hospital with complaints of vomiting red orange liquid that began last night around 10 PM and woke her up from her sleep. She reports having 3 episodes of emesis along with fevers and chills. For the last 3 days she has had a poor appetite. She denies eating out recently or having any sick contacts. Her last LMP was on the ; she admits to bleeding heavily. She diagnosed with pneumonia 1 week ago one week ago discharged from the ER with scripts for with cefdinir and azithromycin. Since her visit she has also developed a new cough or productive of green sputum. She denies having a sore throat, muscle aches, fever, chills, or abdominal pain. In the ER, she received albuterol, Decadron and Zosyn for presumed pneumonia with failure of out patient abx." HOSPITAL COURSE: Cavitary lung lesions noted on imaging, ID have been following and evaluated for TB. Quantiferon and sputum cultures does not show evidence of mycobacterium, findings likely suggestive of necrotizing pneumonia. Have been placed on antibiotics with improvement in symptoms and complete resolution of fevers. Sputum culture grew MSSA and have been treated with cefzolin. Due to questions o f compliance, ID had arranged for outpatient Dalvance treatment. Patient to be discharged to follow up with ID in 2 weeks and get weekly Dalvance until then. She also need to follow up with ID for hepatitis C follow up. DISCHARGE MEDICATIONS: Please see below. ALLERGIES: Please see below. PHYSICAL EXAMINATION ON DISCHARGE: VITAL SIGNS: Please see below. General: No acute distress, Alert Eyes: Normal sclera, EOMI HENT: Atraumatic Cardiovascular: Normal rate, normal rhythm. Pulmonary: Clear to auscultation b/l, no wheezing GI: Soft, nontender, nondistended Skin: Warm and dry Neuro: CN grossly intact. No focal deficits. Strengths equal b/l. Psych: oriented x 3 LABORATORY DATA: Please see below. IMAGING: CXR- Increased right lung opacities, consistent with pneumonia with pleural effusion. A small air-fluid level is seen in the right lower lobe opacity abutting the right minor fissure. A loculate air-fluid level is suspected but difficult to evaluate with plain radiography. Chest CT- IMPRESSION: 1. Multiple right lung cavitary masses, as described above. 2. Right-sided pleural effusion, some of which appears loculated. 3. Adenopathy, as described above. 4. Trace amount of ascites. ACTIVITY: [As tolerated]. DIET: Regular DISCHARGE PLAN: Complete course of Azithromycin for Mycoplasma c/w Cefdinir another dose tonight. Can stop after that as patient is scheduled for Dalvance infusion tomorrow, extra pills given incase unable to gain access. Does not need to continue taking after today otherwise. f/u ID in 2 weeks f/u PMD within 2 weeks DISPOSITION: Home. DISCHARGE INSTRUCTIONS: Complete course of Azithromycin for Mycoplasma c/w Cefdinir another dose tonight. Can stop after that as patient is scheduled for Dalvance infusion tomorrow, extra pills given incase unable to gain access. Does not need to continue taking after today otherwise. f/u ID in 2 weeks f/u PMD within 2 weeks ITEMS TO FOLLOWUP ON ON OUTPATIENT: None DISCHARGE CONDITION: [Stable]. TIME SPENT ON DISCHARGE: 35 minutes. Vital Signs/I&Os Vital Signs Date Time Temp Pulse Resp B/P (MAP) Pulse Ox O2 Delivery O2 Flow Rate FiO2 01/26/20 06:00 97.2 57 14 103/59 (74) 96 Room Air I&O- Last 24 Hours up to 6 AM 01/26/20 06:00 Intake Total 1870 ml Balance 1870 ml Laboratory Data Labs 24H Laboratory Tests 2 01/26/20 05:39: Immature Granulocyte % (Auto) 0.7, Neutrophils (%) (Auto) 47.6, Lymphocytes (%) (Auto) 41.0, Monocytes (%) (Auto) 7.9H, Eosinophils (%) (Auto) 2.3, Basophils (%) (Auto) 0.5, Neutrophils # (Auto) 2.7, Lymphocytes # (Auto) 2.3, Monocytes # (Auto) 0.4, Eosinophils # (Auto) 0.1, Basophils # (Auto) 0.0, Nucleated Red Blood Cells % (auto) 0.0, Anion Gap 4L, Glomerular Filtration Rate > 60.0, Calcium Level 8.1L, Magnesium Level 2.1 CBC/BMP Laboratory Tests 01/26/20 05:39 Microbiology Microbiology 01/19/20 Acid Fast Stain - Final, Resulted 01/19/20 Mycobacterial Culture, Resulted Pending 01/19/20 Blood Culture - Final, Complete NO GROWTH AFTER 5 DAYS 01/19/20 Blood Culture - Final, Complete NO GROWTH AFTER 5 DAYS 01/19/20 Gram Stain - Final, Complete 01/19/20 Sputum Culture - Final, Complete Staphylococcus Aureus Strep (Group F) Constellatus Yeast Like Organism 01/19/20 Blood Culture - Final, Complete NO GROWTH AFTER 5 DAYS 01/19/20 Respiratory Virus Panel (PCR) ([facility]) - Final, Complete Discharge Medications Scheduled Azithromycin (Azithromycin) 500 Mg Tablet, 500 MG PO DAILY Bupropion HCl (Bupropion HCl Sr) 100 Mg Tab.sr.12h, 100 MG PO DAILY, (Reported) Cefdinir (Cefdinir) 300 Mg Capsule, 300 MG PO BID Stop taking the day Dalvance to be started Fluoxetine Hcl (Fluoxetine HCl) 20 Mg Capsule, 40 MG PO DAILY, (Reported) Gabapentin (Gabapentin) 600 Mg Tablet, 600 MG PO TID, (Reported) Allergies Coded Allergies: amoxicillin (Verified Allergy, Intermediate, hives, 12/15/19) clavulanic acid (Verified Allergy, Intermediate, hives, 12/15/19) SKYE TILLMAN MD Jan 26, 2020 10:47
[2020-01-26] MEDS ORDERED: BUPR1TAB52 PO (12:01)
[2020-01-26] MEDS ORDERED: GABA600T4 PO (12:01)
[2020-01-26] MEDS ORDERED: FLUO20CA22 PO (12:01)
== END 2020-01-26 13:14 | disposition home or self-care (01) | DRG 137 ==
LOC: M ED 20:28 → M ED INP 01-19 02:37 → M PCU 01-19 14:33 → M ICU 01-19 22:59 → M MSPAV 01-22 15:40
PROVIDERS: ADMIT Internal Medicine; ATTEND Student in an Organized Health Care Education/Training Program
DX: J85.0 Gangrene and necrosis of lung (principal); J15.4 Pneumonia due to other streptococci; B19.20 Unspecified viral hepatitis C without hepatic coma; E87.6 Hypokalemia; D50.9 Iron deficiency anemia, unspecified; F17.200 Nicotine dependence, unspecified, uncomplicated; F31.9 Bipolar disorder, unspecified; F41.9 Anxiety disorder, unspecified; R11.10 Vomiting, unspecified; E66.9 Obesity, unspecified; Z68.30 Body mass index [BMI] 30.0-30.9, adult; Z79.899 Other long term (current) drug therapy; Z88.0 Allergy status to penicillin; Z88.8 Allergy status to other drugs, medicaments and biological substances; Z91.5 Personal history of self-harm

== ENCOUNTER → 2020-05-22 | Outpatient (CLI) | payer OTHER ==
[~2020-05-22] MED LIST changes: +AZIT500T5 PO; +BUPR10TASR PO; +BUPR1FIL3 SL; +CELE20TA PO; +CITA20TA6 PO; +FLUO20CA20 PO; +LEVO100T5 PO; +MED REC COMMENT; +NICO7DIS24 TD; +NICO7PA TD; +OLAN5TAB PO; +SUBO8MIS SL
[2020-05-22 14:05] LABS: BASO % 0.6 % (0.0-1.0); EOS # 0.2 10^3/uL (0.0-0.5); EOS % 2.7 % (0.0-3.0); HEMATOCRIT 37.1 % (36.0-47.0); HEMOGLOBIN 11.4 g/dl (12.0-15.5); LYMPH # 2.3 10^3/uL (1.5-5.0); LYMPH % 34.7 % (24.0-44.0); MEAN CORPUSCULAR HEMOGLOBIN 24.4 pg (27.0-33.0); MEAN CORPUSCULAR HGB CONC 30.7 g/dl (32.0-36.5); MEAN CORPUSCULAR VOLUME 79.3 fl (80.0-96.0); MONO # 0.5 10^3/uL (0.0-0.8); MONO % 7.9 % (0.0-5.0); NEUTROPHILS # 3.5 10^3/uL (1.5-8.5); NEUTROPHILS % 53.9 % (36.0-66.0); PLATELET COUNT, AUTOMATED 222 10^3/uL (150-450); RED BLOOD COUNT 4.68 10^6/uL (4.00-5.40); WHITE BLOOD COUNT 6.6 10^3/uL (4.0-10.0)
[2020-05-22 14:08] LABS: ALBUMIN 3.9 GM/DL (3.2-5.2); ALT/SGPT 19 U/L (12-78); BILIRUBIN,TOTAL 0.2 MG/DL (0.2-1.0); BLOOD UREA NITROGEN 20 MG/DL (7-18); CALCIUM LEVEL 9.7 MG/DL (8.5-10.1); CARBON DIOXIDE LEVEL 26 MEQ/L (21-32); CHLORIDE LEVEL 108 MEQ/L (98-107); CREATININE FOR GFR 0.78 MG/DL (0.55-1.30); GLOMERULAR FILTRATION RATE > 60.0 (>60); GLUCOSE, FASTING 85 MG/DL (70-100); POTASSIUM SERUM 4.1 MEQ/L (3.5-5.1); SODIUM LEVEL 142 MEQ/L (136-145)
[2020-05-22 14:56] LABS: HIV 1&2 SCREEN CENTAUR NEGATIVE (NEGATIVE)
[2020-06-22 08:06] LABS: HEPATITIS A IgG TOTAL Negative (Negative); HEPATITIS B CORE ANTIBODY IGG Negative (Negative); HEPATITIS BE ANTIGEN Negative (Negative); HEPATITIS C QUANTITATION 940 IU/mL (.); HEPATITIS C VIRUS GENOTYPE 1b (.)
== END ==
LOC: M PLALAB 09:27
PROVIDERS: ATTEND Internal Medicine Infectious Disease
DX: B18.2 Chronic viral hepatitis C (principal)

== ENCOUNTER 2020-05-31 19:15 | Inpatient (IN) | payer OTHER ==
[~2020-05-31 19:15] MED LIST changes: -BUPR10TASR PO; -BUPR1FIL3 SL; -CELE20TA PO; -CITA20TA6 PO; -FLUO20CA20 PO; -LEVO100T5 PO; -MED REC COMMENT; -NICO7DIS24 TD; -NICO7PA TD; -OLAN5TAB PO; -SUBO8MIS SL
[2020-05-31] MEDS ORDERED: ISOVUE-370 76% 100ML VIAL As Ordered ONE (21:39)
[2020-06-01] MEDS ORDERED: LACTULOSE 20 GM/30 ML SYRUP UD As Ordered ONE (00:30)
[2020-06-01] MEDS ORDERED: NICOTINE 14 MG/24 HR TRANSDERMAL ONE (02:42)
[2020-06-01] MEDS ORDERED: ACETAMINOPHEN TAB 650MG DOSE (2X325MG) ONE (02:42)
[2020-06-01] MEDS ORDERED: CLINDAMYCIN 300 MG/50 ML PREMIX BAG As Ordered ONE (04:34)
[2020-06-01] MEDS ORDERED: LACTULOSE 20 GM/30 ML SYRUP UD ONE (08:38)
[2020-06-01] MEDS ORDERED: ACETAMINOPHEN 325 MG TAB ONE (08:38)
[2020-06-01] MEDS ORDERED: CLINDAMYCIN 300 MG/50 ML PREMIX BAG ONE ×2 (08:38→11:30)
[2020-06-01] MEDS ORDERED: ACETAMINOPHEN TAB 650MG DOSE (2X325MG) As Ordered ONE (14:42)
[2020-06-01] MEDS ORDERED: NICOTINE 14 MG/24 HR TRANSDERMAL As Ordered ONE (14:42)
[2020-06-01] MEDS ORDERED: ACETAMINOPHEN 325 MG TAB As Ordered ONE (20:38)
[2020-06-02] MEDS ORDERED: ACETAMINOPHEN 325 MG TAB As Ordered ONE ×2 (05:30→20:52)
[2020-06-02] MEDS ORDERED: NICOTINE 14 MG/24 HR TRANSDERMAL As Ordered ONE (12:04)
[2020-06-02] MEDS ORDERED: ACETAMINOPHEN TAB 650MG DOSE (2X325MG) As Ordered ONE (12:05)
[2020-06-02] MEDS ORDERED: CLINDAMYCIN 300 MG/50 ML PREMIX BAG ONE (18:00)
[2020-06-03] MEDS ORDERED: NICOTINE 14 MG/24 HR TRANSDERMAL As Ordered ONE (09:52)
[2020-06-03] MEDS ORDERED: NICOTINE 14 MG/24 HR TRANSDERMAL ONE (09:52)
[2020-06-26 12:00] LABS: INR 1.19; PARTIAL THROMBOPLASTIN TIME 25.3 SECONDS (25.0-38.4); PROTHROMBIN TIME 15.4 SECONDS (11.8-14.0)
[2020-06-26 17:09] LABS: BASO % 0.3 % (0.0-1.0); EOS % 0.1 % (0.0-3.0); HEMATOCRIT 31.5 % (36.0-47.0); LYMPH # 1.4 10^3/uL (1.5-5.0); LYMPH % 18.9 % (24.0-44.0); MEAN CORPUSCULAR HEMOGLOBIN 24.8 pg (27.0-33.0); MEAN CORPUSCULAR HGB CONC 31.7 g/dl (32.0-36.5); MONO # 0.5 10^3/uL (0.0-0.8); MONO % 7.2 % (0.0-5.0); NEUTROPHILS # 5.5 10^3/uL (1.5-8.5); NEUTROPHILS % 73.2 % (36.0-66.0); PLATELET COUNT, AUTOMATED 180 10^3/uL (150-450); RED BLOOD COUNT 4.04 10^6/uL (4.00-5.40); WHITE BLOOD COUNT 7.5 10^3/uL (4.0-10.0)
[2020-06-28 14:10] LABS: AMPHETAMINES LEVEL URINE POSITIVE (NEGATIVE); BARBITURATES URINE NEGATIVE (NEGATIVE); BENZODIAZEPINES URINE POSITIVE (NEGATIVE); CANNABINOIDS URINE POSITIVE (NEGATIVE); COCAINE METABOLITE URINE POSITIVE (NEGATIVE); METHADONE URINE NEGATIVE (NEGATIVE); OPIATES URINE NEGATIVE (NEGATIVE); PHENCYCLIDINE URINE NEGATIVE (NEGATIVE)
[2020-07-07 08:19] LABS: ACETAMINOPHEN LEVEL < 2.0 UG/ML (10.0-30.0); ALBUMIN 3.4 GM/DL (3.2-5.2); ALT/SGPT 24 U/L (12-78); BILIRUBIN,DIRECT 0.1 MG/DL (0.0-0.2); BILIRUBIN,TOTAL 0.4 MG/DL (0.2-1.0); BLOOD UREA NITROGEN 10 MG/DL (7-18); CALCIUM LEVEL 8.6 MG/DL (8.5-10.1); CARBON DIOXIDE LEVEL 22 MEQ/L (21-32); CHLORIDE LEVEL 113 MEQ/L (98-107); CK-MB VALUE MASS < 1.0 NG/ML (<3.6); CPK CREATINE PHOSPHOKINASE 126 U/L (26-192); CREATININE FOR GFR 0.77 MG/DL (0.55-1.30); ETHYL ALCOHOL (ETHANOL) < 0.003 % (0.000-0.010); GLOMERULAR FILTRATION RATE > 60.0 (>60); GLUCOSE, FASTING 87 MG/DL (70-100); MB/CK RELATIVE INDEX 0.79 (< OR =4); POTASSIUM SERUM 3.6 MEQ/L (3.5-5.1); SALICYLATE LEVEL 3.5 MG/DL (5.0-30.0); SODIUM LEVEL 145 MEQ/L (136-145); TOTAL PROTEIN 7.1 GM/DL (6.4-8.2); TROPONIN I < 0.02 NG/ML (< 0.10)
== END 2020-06-03 10:00 | disposition home or self-care (01) | DRG 52 ==
LOC: M ED 19:15 → M MSPAV 06-01 19:15
PROVIDERS: ADMIT Internal Medicine; ATTEND Internal Medicine
DX: G92 Toxic encephalopathy (principal); L03.211 Cellulitis of face; F31.9 Bipolar disorder, unspecified; F12.90 Cannabis use, unspecified, uncomplicated; F15.90 Other stimulant use, unspecified, uncomplicated; F14.90 Cocaine use, unspecified, uncomplicated; K04.7 Periapical abscess without sinus; B18.2 Chronic viral hepatitis C

== ENCOUNTER 2020-07-03 16:32 | Inpatient (IN) | payer MEDICAID, OTHER ==
[~2020-07-03] VITALS: Ht 167.6 cm; Wt 84.6 kg
[2020-07-03] MEDS ORDERED: BUPR1FIL3 SL (16:43)
[2020-07-03 19:16] LABS: HEMOGLOBIN 10.6 g/dl (12.0-15.5); MEAN CORPUSCULAR HGB CONC 31.2 g/dl (32.0-36.5); MEAN CORPUSCULAR VOLUME 80.2 fl (80.0-96.0); PLATELET COUNT, AUTOMATED 208 10^3/uL (150-450); RED BLOOD COUNT 4.24 10^6/uL (4.00-5.40); WHITE BLOOD COUNT 6.1 10^3/uL (4.0-10.0)
[2020-07-03 19:32] LABS: HCG, SERUM QUALITATIVE NEGATIVE (NEGATIVE)
[2020-07-03 21:02] LABS: ACETAMINOPHEN LEVEL < 2.0 UG/ML (10.0-30.0); ALBUMIN 3.8 GM/DL (3.2-5.2); ALT/SGPT 78 U/L (12-78); BILIRUBIN,DIRECT 0.3 MG/DL (0.0-0.2); BILIRUBIN,TOTAL 0.6 MG/DL (0.2-1.0); BLOOD UREA NITROGEN 11 MG/DL (7-18); CARBON DIOXIDE LEVEL 26 MEQ/L (21-32); CHLORIDE LEVEL 110 MEQ/L (98-107); CREATININE FOR GFR 0.65 MG/DL (0.55-1.30); ETHYL ALCOHOL (ETHANOL) 0.004 % (0.000-0.010); GLOMERULAR FILTRATION RATE > 60.0 (>60); GLUCOSE, FASTING 88 MG/DL (70-100); POTASSIUM SERUM 3.2 MEQ/L (3.5-5.1); SALICYLATE LEVEL 3.5 MG/DL (5.0-30.0); SODIUM LEVEL 143 MEQ/L (136-145); TOTAL PROTEIN 7.6 GM/DL (6.4-8.2)
[2020-07-03 22:55] LABS: AMPHETAMINES LEVEL URINE POSITIVE (NEGATIVE); BARBITURATES URINE NEGATIVE (NEGATIVE); BENZODIAZEPINES URINE POSITIVE (NEGATIVE); CANNABINOIDS URINE POSITIVE (NEGATIVE); COCAINE METABOLITE URINE NEGATIVE (NEGATIVE); METHADONE URINE NEGATIVE (NEGATIVE); OPIATES URINE NEGATIVE (NEGATIVE); PHENCYCLIDINE URINE NEGATIVE (NEGATIVE)
[2020-07-04] MEDS ORDERED: MAALOX 30 ML SUSP *UDC PO PRN (02:15)
[2020-07-04] MEDS ORDERED: ACETAMINOPHEN TAB 650MG DOSE (2X325MG) PO PRN (02:15)
[2020-07-04] MEDS ORDERED: OLANZapine ORAL DISINTEGRATING TAB 5MG PO PRN (02:15)
[2020-07-04] MEDS ORDERED: GABA600T4 PO (02:25)
[2020-07-04] MEDS ORDERED: BUPR1TAB52 PO (02:25)
[2020-07-04] MEDS ORDERED: FLUO20CA20 PO (02:25)
[2020-07-04] MEDS ORDERED: METAL LOCK LOOP XX ONE (03:53)
[2020-07-04 04:22] VITALS: BP 119/68
[2020-07-04] MEDS ORDERED: FLUoxetine 20 MG CAP PO SCH (09:00)
[2020-07-04] MEDS: NICOTINE 7 MG/24 HR TRANSDERMAL TD SCH (09:00)
[2020-07-04] MEDS: GABAPENTIN 300 MG CAP PO SCH ×3 (09:36→20:51)
[2020-07-04] MEDS: buPROPion (WELLBUTRIN SR) 100 MG SR TAB PO SCH (09:36)
[2020-07-04] MEDS: BUPRENORPHINE/NALOXONE 8-2MG SUBLINGUAL TABLET(SUBOXONE) SL SCH (12:02)
[2020-07-04 14:00] VITALS: BP 113/61
--- NOTE | 2020-07-04 14:37 | HPEPDOC ---
[facility] Medical History & Physical Date of Admission Jul 03, 2020 Date of Service: Jul 04, 2020 History and Physical Chief complaint: Who presented to the ER with symptoms of chelsea History of present illness: Patient is a 30 year old female with a PMHX of IVDA (on Suboxone), Depression / Anxiety who presented to the ER with complaints of chelsea. Patient was admitted to [facility] under the psychiatric service. Hospitalist was called for medical screening evaluation. Currently patient reports a mild headache. They denied any chest pain, shortness of breath, palpitations, abdominal pain, constipation, diarrhea or urinary discomfort. Deny any fevers / chills. Report a weight loss that they attribute to poor diet. Past Medical History: IVDA (on Suboxone), Depression / Anxiety Past Surgical History: x2 Medications: Reviewed Family History: - No history of malignancies Social History: - Denies the use of alcohol; Reports she is a smoker; Reports drug use (Methamphetamine / Ecstasy) - Denies recent travel or sick contacts - Lives alone - Occupation; unemployed / on disability Review of Systems: 10 point review of systems complete, all negative otherwise stated in HPI Physical exam: - Vitals: BP [119/68], HR [69], RR [14], Sat [99%RA], Temp [97.1F] - General: Sitting up in bed, No acute distress, Comfortable, AAOx3 - HEENT: NC, AT, PERRLA - CVS: RRR, +S1S2 - Lungs: Fair air entry bilaterally, No wheezing / rales / rhonchi - Abdomen: Soft, Non-distended, Non-tender - Extremities: No lower extremity edema, No calf tenderness - Neuro: No focal motor or sensory deficit - Skin: No visible rashes Labs: Reviewed Assessment and Plan: Chelsea / Psychosis - Admitted to [facility] under the care of psychiatry - Currently being managed by psychiatry Hypokalemia - Will supplement orally Concern for STDs - Reported multiple sexual partners - Asked about HIV testing; patient declined at this time - Will test for GC and Chlamydia DVT prophylaxis - Will c/w early ambulation Female chaperones present throughout the duration of this history and physical examination Thank you for this consultations; hospitalist service will sign off; please re- consult as needed Vital Signs Vital Signs Date Time Temp Pulse Resp B/P (MAP) Pulse Ox O2 Delivery O2 Flow Rate FiO2 07/04/20 14:00 97.2 60 18 113/61 (78) 97 Room Air Laboratory Data Labs 24H Laboratory Tests 2 07/03/20 18:44: Nucleated Red Blood Cells % (auto) 0.0, Anion Gap 7L, Glomerular Filtration Rate > 60.0, Calcium Level 9.0, Total Bilirubin 0.6, Direct Bilirubin 0.3H, Aspartate Amino Transf (AST/SGOT) 45H, Alanine Aminotransferase (ALT/SGPT) 78, Alkaline Phosphatase 71, Total Protein 7.6, Albumin 3.8, Albumin/Globulin Ratio 1.0L, Thyroid Stimulating Hormone (TSH) 2.990, Human Chorionic Gonadotropin, Qual NEGATIVE, Salicylates Level 3.5L, Acetaminophen Level < 2.0L, Ethyl Alcohol Level 0.004 07/03/20 22:00: Urine Opiates Screen NEGATIVE, Urine Methadone Screen NEGATIVE, Urine Barbit urates Screen NEGATIVE, Urine Phencyclidine Screen NEGATIVE, Urine Amphetamines Screen POSITIVEH, Urine Benzodiazepines Screen POSITIVEH, Urine Cocaine Metabolite Screen NEGATIVE, Urine Cannabinoids Screen POSITIVEH CBC/BMP Laboratory Tests 07/03/20 18:44 Home Medications Scheduled Buprenorphine HCl/Naloxone HCl (Buprenor-Nalox 12-3 mg Sl Film) 1 Each Film, 1 FILM SL DAILY for opioid Bupropion Hcl (Bupropion HCl Sr) 100 Mg Tab.sr.12h, 200 MG PO DAILY for mood Citalopram Hydrobromide (Celexa) 20 Mg Tablet, 20 MG PO DAILY for mood\ Gabapentin (Gabapentin) 300 Mg Capsule, 600 MG PO TID for mood Nicotine (Nicotine Patch) 7 Mg Patch.td24, 1 PATCH TD DAILY for tobacco Olanzapine (Olanzapine) 5 Mg Tablet, 2.5 MG PO QHS for mood Allergies Coded Allergies: amoxicillin (Verified Allergy, Intermediate, hives, 12/15/19) clavulanic acid (Verified Allergy, Intermediate, hives, 12/15/19) A-FIB/CHADSVASC A-FIB History Current/History of A-Fib/PAF?: No MILES CHAVES MD Jul 04, 2020 14:37
[2020-07-04] MEDS ORDERED: POTASSIUM CHLORIDE 10 MEQ SR TABLET PO ONE (15:00)
[2020-07-04] MEDS: traZODone 50 MG TAB PO PRN (20:51)
[2020-07-05 06:36] VITALS: BP 96/48
[2020-07-05] MEDS: CitaloPRAM (CeleXA) 20 MG TAB PO SCH (09:25)
[2020-07-05] MEDS: GABAPENTIN 300 MG CAP PO SCH ×3 (09:25→21:43)
[2020-07-05] MEDS: NICOTINE 7 MG/24 HR TRANSDERMAL TD SCH (09:25)
[2020-07-05] MEDS: buPROPion (WELLBUTRIN SR) 100 MG SR TAB PO SCH (09:25)
[2020-07-05] MEDS: BUPRENORPHINE/NALOXONE 8-2MG SUBLINGUAL TABLET(SUBOXONE) SL SCH (09:26)
[2020-07-05 18:31] VITALS: BP 95/50
[2020-07-05] MEDS: traZODone 50 MG TAB PO PRN (21:43)
--- NOTE | 2020-07-06 07:45 | MHIPNPDOC ---
[facility] Progress Note Progress Note DATE OF SERVICE: 07/06/20 Subjective HPI: Jenny presents today for concerns regarding manic episodes around her period with increasing energy, impulsivity, distractibility, and low moods on other times of the week. Patient denies any suicidal or homicidal thoughts. MEDICATIONS: The patient is currently taking Celexa but reports that it is not helpful. She has tried Abilify in the past, but has not tried Zyprexa. Objective Appearance: Well nourished. Appears to be stated age. Well groomed. Behavior: Pleasant. Engaged. Cooperative with good eye contact. Mood: Appropriately reactive. Dysthymic. Constricted. Speech: Spontaneous and Fluid. Normal volume. Normal rate. Thought Form: Linear and goal directed. Thought Content: No evidence of suicidal ideation. No evidence of aggressive or homicidal ideation. No evidence of delusions. No thoughts of self harm. Judgement: Intact as evidenced by decision making in the recent past. Insight: Good insight into symptoms and treatment options. Assessment F31.89 Other bipolar disorder Plan The risks, benefits as well as common side effects as well as alternative treatments (including non-treatment) were discussed with the patient both in general and for their particular case. The patient selected this option out of a range. Start Zyprexa 5 mg nightly. Consider dropping Celexa as acid syndrome is known to happen. Will continue to observe and convert to voluntary today. Will likely discharge patient midweek. Vital Signs Vital Signs Date Time Temp Pulse Resp B/P (MAP) Pulse Ox O2 Delivery O2 Flow Rate FiO2 07/05/20 18:31 96.8 52 14 95/50 (65) 97 Room Air Current Medications Current Medications Medications (Trade) Dose Ordered Sig/Larry Route PRN Reason Start Time Stop Time Status Last Admin Dose Admin Acetaminophen (Tylenol Tab) 650 mg Q6HP PRN PO HEADACHE or DISCOMFORT 07/04/20 02:15 07/04/20 15:04 Al Hydrox/Mg Hydrox/Simethicone (Mylanta) 30 ml Q4HP PRN PO HEARTBURN/INDIGESTION 07/04/20 02:15 Buprenorphine/ Naloxone (Suboxone 8/2mg) 1.5 tab DAILY SL 07/04/20 09:00 07/05/20 09:26 Bupropion HCl (Wellbutrin Sr) 100 mg DAILY PO 07/04/20 09:00 07/05/20 09:25 Citalopram Hydrobromide (CeleXA) 20 mg DAILY PO 07/05/20 09:00 07/05/20 09:25 Fluoxetine HCl (PROzac) 40 mg DAILY PO 07/04/20 09:00 07/04/20 11:11 DC 07/04/20 09:36 Gabapentin (Neurontin) 600 mg TID PO 07/04/20 09:00 07/05/20 21:43 Home Med (Med Rec Complete!) ASDIRECTED XX 07/04/20 02:30 07/04/20 02:28 DC Nicotine (Nicoderm Cq 7 Mg) 1 patch DAILY TD 07/04/20 09:00 07/05/20 09:25 Olanzapine (ZyPREXA ZYDIS) 10 mg Q4HP PRN PO ANXIETY/AGITATION 07/04/20 02:15 07/04/20 20:51 Trazodone HCl (Desyrel) 50 mg QHSP PRN PO INSOMNIA 07/04/20 02:15 07/05/20 21:43 Allergies Coded Allergies: amoxicillin (Verified Allergy, Intermediate, hives, 12/15/19) clavulanic acid (Verified Allergy, Intermediate, hives, 12/15/19) MARIA DEL CARMEN DARDEN DO Jul 06, 2020 07:45
[2020-07-06] MEDS: buPROPion (WELLBUTRIN SR) 100 MG SR TAB PO SCH (10:43)
[2020-07-06] MEDS: CitaloPRAM (CeleXA) 20 MG TAB PO SCH (10:43)
[2020-07-06] MEDS: GABAPENTIN 300 MG CAP PO SCH ×3 (10:43→21:55)
[2020-07-06] MEDS: NICOTINE 7 MG/24 HR TRANSDERMAL TD SCH (10:44)
[2020-07-06] MEDS: BUPRENORPHINE/NALOXONE 8-2MG SUBLINGUAL TABLET(SUBOXONE) SL SCH (10:44)
[2020-07-06 17:54] VITALS: BP 93/55
[2020-07-06] MEDS: OLANZapine 5 MG TAB PO SCH (21:55)
[2020-07-06] MEDS: traZODone 50 MG TAB PO PRN (21:55)
[2020-07-07 06:27] VITALS: BP 125/60
[2020-07-07] MEDS: NICOTINE 7 MG/24 HR TRANSDERMAL TD SCH (10:11)
[2020-07-07] MEDS: buPROPion (WELLBUTRIN SR) 100 MG SR TAB PO SCH (10:11)
[2020-07-07] MEDS: CitaloPRAM (CeleXA) 20 MG TAB PO SCH (10:11)
[2020-07-07] MEDS: GABAPENTIN 300 MG CAP PO SCH ×3 (10:11→21:31)
[2020-07-07] MEDS: BUPRENORPHINE/NALOXONE 8-2MG SUBLINGUAL TABLET(SUBOXONE) SL SCH (10:11)
--- NOTE | 2020-07-07 11:01 | MHIPNPDOC ---
[facility] Progress Note Progress Note DATE OF SERVICE: 07/07/20 HPI: Jenny presents today for a follow-up on her mood and medication. She reports shes been quite tired and staying in her room, not attending any groups, and q uite depressed. MEDICATIONS: Patient is currently taking Zyprexa and reports that it made her sleepy last night. Objective Appearance: Well groomed. Well nourished. Appears to be stated age. Speech: Normal rate. Spontaneous and Fluid. Normal volume. Cognition: Alert, Attentive, and Oriented to person, place, time. Thought Form: Linear and goal directed. Thought Content: No thoughts of self harm. No evidence of aggressive or homicidal ideation. No evidence of suicidal ideation. No evidence of delusions. Heavily depressed and constricted. Judgement: Intact as evidenced by decision making in the recent past. Insight: Good insight into symptoms and treatment options. Assessment F31.30 Bipolar disorder, current episode depressed, mild or moderate severity, unspecified Plan Decrease Zyprexa 2.5 mg QHS. Continue Bupropion at current dose and Celexa. Will continue to monitor. Convert to voluntary. Vital Signs Vital Signs Date Time Temp Pulse Resp B/P (MAP) Pulse Ox O2 Delivery O2 Flow Rate FiO2 07/07/20 06:27 96.4 52 16 125/60 (81) 07/05/20 18:31 97 Room Air Current Medications Current Medications Medications (Trade) Dose Ordered Sig/Larry Route PRN Reason Start Time Stop Time Status Last Admin Dose Admin Acetaminophen (Tylenol Tab) 650 mg Q6HP PRN PO HEADACHE or DISCOMFORT 07/04/20 02:15 07/04/20 15:04 Al Hydrox/Mg Hydrox/Simethicone (Mylanta) 30 ml Q4HP PRN PO HEARTBURN/INDIGESTION 07/04/20 02:15 Buprenorphine/ Naloxone (Suboxone 8/2mg) 1.5 tab DAILY SL 07/04/20 09:00 07/07/20 10:11 Bupropion HCl (Wellbutrin Sr) 100 mg DAILY PO 07/04/20 09:00 07/07/20 10:11 Citalopram Hydrobromide (CeleXA) 20 mg DAILY PO 07/05/20 09:00 07/07/20 10:11 Fluoxetine HCl (PROzac) 40 mg DAILY PO 07/04/20 09:00 07/04/20 11:11 DC 07/04/20 09:36 Gabapentin (Neurontin) 600 mg TID PO 07/04/20 09:00 07/07/20 10:11 Home Med (Med Rec Complete!) ASDIRECTED XX 07/04/20 02:30 07/04/20 02:28 DC Nicotine (Nicoderm Cq 7 Mg) 1 patch DAILY TD 07/04/20 09:00 07/07/20 10:11 Olanzapine (ZyPREXA ZYDIS) 10 mg Q4HP PRN PO ANXIETY/AGITATION 07/04/20 02:15 07/04/20 20:51 Olanzapine (ZyPREXA) 5 mg QHS PO 07/06/20 21:00 07/06/20 21:55 Trazodone HCl (Desyrel) 50 mg QHSP PRN PO INSOMNIA 07/04/20 02:15 07/06/20 21:55 Allergies Coded Allergies: amoxicillin (Verified Allergy, Intermediate, hives, 12/15/19) clavulanic acid (Verified Allergy, Intermediate, hives, 12/15/19) MARIA DEL CARMEN DARDEN DO Jul 07, 2020 11:01
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
[2020-07-07 17:55] VITALS: BP 111/63
[2020-07-07] MEDS: OLANZapine 5 MG TAB PO SCH (21:31)
[2020-07-07] MEDS: traZODone 50 MG TAB PO PRN (21:31)
[2020-07-07 23:24] LABS: CHLAMYDIA DNA AMPLIFICATION NEGATIVE (NEGATIVE); GC DNA AMPLIFICATION NEGATIVE (NEGATIVE)
[2020-07-08 06:44] VITALS: BP 134/67
--- NOTE | 2020-07-08 08:53 | MHIPNPDOC ---
[facility] Progress Note Progress Note DATE OF SERVICE: 07/08/20 Subjective HPI: Jenny presents today for concerns regarding her recent lethargy. She states that she is able to get up regardless of her fatigue. MEDICATIONS: Her Wellbutrin was increased to 200 mg. Objective Appearance: Hygeine fair. Mood: More euthymic. Cognition: Grossly intact. Thought Form: More logical. More linear. Judgement: Fair. Insight: Fair. Assessment F31.30 Bipolar disorder, current episode depressed, mild or moderate severity, unspecified Plan Increase Wellbutrin 200 mg daily. Continue Zyprexa 2.5 mg nightly for improvement of energy. Will continue likely discharge early next week. Vital Signs Vital Signs Date Time Temp Pulse Resp B/P (MAP) Pulse Ox O2 Delivery O2 Flow Rate FiO2 07/08/20 06:44 96.8 53 16 134/67 (89) Room Air 07/05/20 18:31 97 Laboratory Data 24H Labs Laboratory Tests 2 07/07/20 21:00: Urine Color YELLOW, Urine Appearance HAZY, Urine pH 7.0, Urine Specific Tanner 1.014, Urine Protein NEGATIVE, Urine Glucose (UA) NEGATIVE, Urine Ketones NEGATIVE, Urine Blood 3+H, Urine Nitrite NEGATIVE, Urine Bilirubin NEGATIVE, Urine Urobilinogen 2.0H, Urine Leukocyte Esterase TRACEH, Urine WBC (Auto) 9H, Urine RBC (Auto) 3, Urine Hyaline Casts (Auto) 0, Urine Bacteria (Auto) NEGATIVE, Urine Squamous Epithelial Cells 6, Urine Mucus (Auto) SMALL, Urine Sperm (Auto) , Chlamydia trachomatis DNA (SAM) NEGATIVE, Neisseria gonorrhoeae DNA (SAM) NEGATIVE Current Medications Current Medications Medications (Trade) Dose Ordered Sig/Larry Route PRN Reason Start Time Stop Time Status Last Admin Dose Admin Acetaminophen (Tylenol Tab) 650 mg Q6HP PRN PO HEADACHE or DISCOMFORT 07/04/20 02:15 07/04/20 15:04 Al Hydrox/Mg Hydrox/Simethicone (Mylanta) 30 ml Q4HP PRN PO HEARTBURN/INDIGESTION 07/04/20 02:15 Buprenorphine/ Naloxone (Suboxone 8/2mg) 1.5 tab DAILY SL 07/04/20 09:00 07/07/20 10:11 Bupropion HCl (Wellbutrin Sr) 100 mg DAILY PO 07/04/20 09:00 07/07/20 10:11 Citalopram Hydrobromide (CeleXA) 20 mg DAILY PO 07/05/20 09:00 07/07/20 10:11 Fluoxetine HCl (PROzac) 40 mg DAILY PO 07/04/20 09:00 07/04/20 11:11 DC 07/04/20 09:36 Gabapentin (Neurontin) 600 mg TID PO 07/04/20 09:00 07/07/20 21:31 Home Med (Med Rec Complete!) ASDIRECTED XX 07/04/20 02:30 07/04/20 02:28 DC Nicotine (Nicoderm Cq 7 Mg) 1 patch DAILY TD 07/04/20 09:00 07/07/20 10:11 Olanzapine (ZyPREXA ZYDIS) 10 mg Q4HP PRN PO ANXIETY/AGITATION 07/04/20 02:15 07/04/20 20:51 Olanzapine (ZyPREXA) 5 mg QHS PO 07/06/20 21:00 07/07/20 21:31 Trazodone HCl (Desyrel) 50 mg QHSP PRN PO INSOMNIA 07/04/20 02:15 07/07/20 21:31 Allergies Coded Allergies: amoxicillin (Verified Allergy, Intermediate, hives, 12/15/19) clavulanic acid (Verified Allergy, Intermediate, hives, 12/15/19) MARIA DEL CARMEN DARDEN DO Jul 08, 2020 08:53
[2020-07-08] MEDS: GABAPENTIN 300 MG CAP PO SCH ×3 (09:57→21:00)
[2020-07-08] MEDS: BUPRENORPHINE/NALOXONE 8-2MG SUBLINGUAL TABLET(SUBOXONE) SL SCH (09:57)
[2020-07-08] MEDS: CitaloPRAM (CeleXA) 20 MG TAB PO SCH (09:57)
[2020-07-08] MEDS: buPROPion (WELLBUTRIN SR) 100 MG SR TAB PO SCH (09:58)
[2020-07-08] MEDS: NICOTINE 7 MG/24 HR TRANSDERMAL TD SCH (09:58)
[2020-07-08 17:55] VITALS: BP 106/57
[2020-07-08] MEDS: OLANZapine 5 MG TAB PO SCH (21:00)
[2020-07-09 07:00] VITALS: BP 123/70
--- NOTE | 2020-07-09 08:12 | MHIPNPDOC ---
[facility] Progress Note Progress Note DATE OF SERVICE: 07/09/20 Subjective HPI: Jenny presents today for follow-up regarding her voluntary admission. She denies any suicidal thoughts. MEDICATIONS: She has been prescribed Zyprexa, Celexa, and Wellbutrin. Objective Appearance: Hygiene is fair. Affect: Much improved and much less dysthymic than yesterday. Speech: Spontaneous and Fluid. Cognition: Grossly intact. No signs of internal preoccupation. Thought Form: Linear and logical. Thought Content: No evidence of suicidal ideation. No evidence of aggressive or homicidal ideation. Judgement: Good. Insight: Good. Assessment F31.9 Bipolar disorder, unspecified F15.10 Other stimulant abuse, uncomplicated F12.90 Cannabis use, unspecified, uncomplicated Plan Jenny will be discharged tomorrow. Will continue Wellbutrin 200 SR, Celexa 20 mg, and Zyprexa 2.5 mg at nighttime. Vital Signs Vital Signs Date Time Temp Pulse Resp B/P (MAP) Pulse Ox O2 Delivery O2 Flow Rate FiO2 07/09/20 07:00 97.8 57 18 123/70 (87) 97 Room Air Current Medications Current Medications Medications (Trade) Dose Ordered Sig/Larry Route PRN Reason Start Time Stop Time Status Last Admin Dose Admin Acetaminophen (Tylenol Tab) 650 mg Q6HP PRN PO HEADACHE or DISCOMFORT 07/04/20 02:15 07/04/20 15:04 Al Hydrox/Mg Hydrox/Simethicone (Mylanta) 30 ml Q4HP PRN PO HEARTBURN/INDIGESTION 07/04/20 02:15 Buprenorphine/ Naloxone (Suboxone 8/2mg) 1.5 tab DAILY SL 07/04/20 09:00 07/08/20 09:57 Bupropion HCl (Wellbutrin Sr) 100 mg DAILY PO 07/04/20 09:00 07/08/20 08:59 DC 07/07/20 10:11 Bupropion HCl (Wellbutrin Sr) 200 mg DAILY PO 07/08/20 09:00 07/08/20 09:58 Citalopram Hydrobromide (CeleXA) 20 mg DAILY PO 07/05/20 09:00 07/08/20 09:57 Fluoxetine HCl (PROzac) 40 mg DAILY PO 07/04/20 09:00 07/04/20 11:11 DC 07/04/20 09:36 Gabapentin (Neurontin) 600 mg TID PO 07/04/20 09:00 07/08/20 15:48 Home Med (Med Rec Complete!) ASDIRECTED XX 07/04/20 02:30 07/04/20 02:28 DC Nicotine (Nicoderm Cq 7 Mg) 1 patch DAILY TD 07/04/20 09:00 07/08/20 09:58 Olanzapine (ZyPREXA ZYDIS) 10 mg Q4HP PRN PO ANXIETY/AGITATION 07/04/20 02:15 07/04/20 20:51 Olanzapine (ZyPREXA) 2.5 mg QHS PO 07/08/20 21:00 Olanzapine (ZyPREXA) 5 mg QHS PO 07/06/20 21:00 07/08/20 08:59 DC 07/07/20 21:31 Trazodone HCl (Desyrel) 50 mg QHSP PRN PO INSOMNIA 07/04/20 02:15 07/07/20 21:31 Allergies Coded Allergies: amoxicillin (Verified Allergy, Intermediate, hives, 12/15/19) clavulanic acid (Verified Allergy, Intermediate, hives, 12/15/19) MARIA DEL CARMEN DARDEN DO Jul 09, 2020 08:12
[2020-07-09] MEDS: buPROPion (WELLBUTRIN SR) 100 MG SR TAB PO SCH (09:35)
[2020-07-09] MEDS: BUPRENORPHINE/NALOXONE 8-2MG SUBLINGUAL TABLET(SUBOXONE) SL SCH (09:36)
[2020-07-09] MEDS: GABAPENTIN 300 MG CAP PO SCH ×3 (09:37→21:44)
[2020-07-09] MEDS: CitaloPRAM (CeleXA) 20 MG TAB PO SCH (09:37)
[2020-07-09] MEDS: NICOTINE 7 MG/24 HR TRANSDERMAL TD SCH (09:38)
[2020-07-09 16:47] VITALS: BP 118/71
[2020-07-09] MEDS: traZODone 50 MG TAB PO PRN (21:44)
[2020-07-09] MEDS: OLANZapine 5 MG TAB PO SCH (21:45)
[2020-07-10] MEDS ORDERED: IBUPROFEN 600MG TAB PO PRN (02:15)
[2020-07-10 06:32] VITALS: BP 105/56
[2020-07-10] MEDS: buPROPion (WELLBUTRIN SR) 100 MG SR TAB PO SCH (08:49)
[2020-07-10] MEDS: CitaloPRAM (CeleXA) 20 MG TAB PO SCH (08:49)
[2020-07-10] MEDS: GABAPENTIN 300 MG CAP PO SCH (08:49)
[2020-07-10] MEDS: NICOTINE 7 MG/24 HR TRANSDERMAL TD SCH (08:51)
[2020-07-10] MEDS: BUPRENORPHINE/NALOXONE 8-2MG SUBLINGUAL TABLET(SUBOXONE) SL SCH (08:51)
--- NOTE | 2020-07-10 10:25 | MHDSPDOC ---
[facility] Discharge Summary Discharge Summary DATE OF ADMISSION: Jul 04, 2020 at 02:04 DATE OF DISCHARGE: Jul 10, 2020 at 12:15 DISCHARGE DIAGNOSES: F31.9 Bipolar disorder, unspecified F15.10 Other stimulant abuse, uncomplicated CONSULTANTS INVOLVED:[ None (basic hospitalist screening)] REASON FOR ADMISSION & TREATMENT AND PROGRESS ON THE UNIT : The patient was admitted to the inpatient mental health unit initially with concerns that she was psychotic. However, these did not appear to be present. She did present with a positive urine drug screen for amphetamines and other drugs. She had reportedly been quite depressed after she had come down off the list and remained in her room isolated for the most part. She was reported having a history of bipolar disorder and was quite insistent on having mood stabilizer. She was continued on Bupropion 100 mg sustained release, but her Prozac was changed to Celexa. Additionally, she had an augmentation with 5 mg Hiprex in which she initially felt very sedate. However, it was reduced to 2.5 mg, and she did quite well. The patient additionally was increased on her Bupropion to 200 mg of SR, which she did very well on. She improved and started going to groups with more engaged more in conversation. She was notably much happier. converted to voluntary status after the first several days, she progressed fairly rapidly without any major behavioral problems. DISCHARGE ASSESSMENT[improved] Legal status considerations: The patient at the time of discharge did not meet criteria for involuntary admission/extension due to having a [normal] mental status exam, [fair] insight into the situation, They are engaged in the discharge process, as well as being friendly and amenable in behavioral control and havent been engaging in any observed concerning behavior or ideation recently. They decline voluntary extension/admission at this time and must be discharged in good león, as Im unable to make a case for holding the patient against their will. They may have historical risk factors of admissions and other interactions with psychiatry however, those are not modifiable from a clinical perspective. The patient will need to be discharged in good león. MENTAL STATUS EXAMINATION ON DISCHARGE: [General: Well dressed with good hygiene Speech: Spontaneous and fluid Thought processes: Linear and logical Thought content: Future orientated Abstract reasoning, and computation: Intact Description of associations: Intact Description of abnormal or psychotic thoughts:Denies any suicidal or homicidal ideation. Denies any auditory or visual hallucinations. Does not appear to be responding to internal stimuli. Does not appear to be endorsing any bizarre or paranoid ideation. Judgment: fair Insight: fair Orientation: Alert and orientated 3 Recent and remote memory: Intact Attention span and concentration: Intact Fund of knowledge: Adequate Mood: "okay" Affect: Euthymic with a full range] PLAN/FOLLOWUP ARRANGEMENTS: Follow up appointments made (PCP and MH in 5 days of D/C date) and safety plan completed. Safety Planning aspects completed prior to discharge [Medication supplies limited to 7 days with 4 refills to prevent accumulation to OD] [RN reviewed crisis hotline information and other aspects to empower patient to access care in interim before next appointment.] The amount of time spent in the coordination of care for this patient was approximately 30 minutes. Vital Signs/I&Os Vital Signs Date Time Temp Pulse Resp B/P (MAP) Pulse Ox O2 Delivery O2 Flow Rate FiO2 07/10/20 06:32 98.0 55 14 105/56 (72) 96 Room Air Laboratory Data Microbiology Microbiology 07/07/20 Urine Culture - Final, Complete Medications Scheduled Buprenorphine HCl/Naloxone HCl (Buprenor-Nalox 12-3 mg Sl Film) 1 Each Film, 1 FILM SL DAILY for opioid for 7 Days, #7 Bupropion Hcl (Bupropion HCl Sr) 100 Mg Tab.sr.12h, 200 MG PO DAILY for mood for 7 Days, #14 Citalopram Hydrobromide (Celexa) 20 Mg Tablet, 20 MG PO DAILY for mood\\ for 7 Days, #7 Gabapentin (Gabapentin) 300 Mg Capsule, 600 MG PO TID for mood for 7 Days, #42 Nicotine (Nicotine Patch) 7 Mg Patch.td24, 1 PATCH TD DAILY for tobacco for 30 Days, #30 Olanzapine (Olanzapine) 5 Mg Tablet, 2.5 MG PO QHS for mood for 7 Days, #5 Allergies Coded Allergies: amoxicillin (Verified Allergy, Intermediate, hives, 12/15/19) clavulanic acid (Verified Allergy, Intermediate, hives, 12/15/19) MARIA DEL CARMEN DARDEN DO Jul 10, 2020 10:25
[2020-07-10] MEDS ORDERED: GABA-843 PO (10:32)
[2020-07-10] MEDS ORDERED: BUPR10TASR PO (10:32)
[2020-07-10] MEDS ORDERED: OLAN5TAB PO (10:32)
[2020-07-10] MEDS ORDERED: BUPR1FIL3 SL (10:32)
[2020-07-10] MEDS ORDERED: NICO7PA TD (10:32)
[2020-07-10] MEDS ORDERED: CELE20TA PO (10:32)
--- NOTE | 2020-07-27 08:28 | MHIPN ---
DATE: 07/05/2020 CHIEF COMPLAINT: The patient today tells me Im feeling better. She slept well. She is not having any suicidal thoughts. She has no complaints. MENTAL STATUS EXAM: She is alert and oriented x3. She is pleasant and cooperative. Verbally spontaneous. No form of thought disorder noted. Mood is better. Affect is full range and appropriate. She is not psychotic. She denies suicidal and homicidal ideation. Her concentration and memory. Good insight and judgment. DIAGNOSES: 1. Unspecified depressive disorder. 2. Opioid use disorder. 3. Cannabis use disorder. 4. Anxiolytic use disorder. 5. Stimulant use disorder. 6. Rule out unspecified bipolar disorder. TREATMENT PLAN: At this point we will continue to monitor the patient for continued stabilization of her mood and resolution of suicidal ideation and we will continue to titrate and adjust medications as indicated. JAYSHREE
--- NOTE | 2020-08-12 11:42 | PSYIPNPDOC ---
DATE: 07/05/2020 CHIEF COMPLAINT: The patient today tells me Im feeling better. She slept well. She is not having any suicidal thoughts. She has no complaints. MENTAL STATUS EXAM: She is alert and oriented x3. She is pleasant and cooperative. Verbally spontaneous. No form of thought disorder noted. Mood is better. Affect is full range and appropriate. She is not psychotic. She denies suicidal and homicidal ideation. concentration and memory. Good insight and judgment. DIAGNOSES: * Unspecified depressive disorder. * Opioid use disorder. * Cannabis use disorder. * Anxiolytic use disorder. * Stimulant use disorder. * Rule out unspecified bipolar disorder. TREATMENT PLAN: At this point we will continue to monitor the patient for continued stabilization of her mood and resolution of suicidal ideation and we will continue to titrate and adjust medications as indicated. JAYSHREE
== END 2020-07-10 12:15 | disposition home or self-care (01) | DRG 753 ==
LOC: M ED 16:32 → M ED INP 07-04 02:04 → M PSY 07-04 04:07
PROVIDERS: ADMIT Psychiatry & Neurology Psychiatry; ATTEND Psychiatry & Neurology Addiction Medicine
DX: F31.9 Bipolar disorder, unspecified (principal); F11.10 Opioid abuse, uncomplicated; F15.10 Other stimulant abuse, uncomplicated; F19.10 Other psychoactive substance abuse, uncomplicated; Z91.410 Personal history of adult physical and sexual abuse; Z91.411 Personal history of adult psychological abuse; Z79.899 Other long term (current) drug therapy; R51 Headache; F17.200 Nicotine dependence, unspecified, uncomplicated; F12.90 Cannabis use, unspecified, uncomplicated

== ENCOUNTER 2020-09-09 15:56 | Inpatient (IN) | payer MEDICAID, OTHER ==
[~2020-09-09] VITALS: Ht 167.6 cm; Wt 91.2 kg
[~2020-09-09 15:56] MED LIST changes: +BUPR10TASR PO; +BUPR1FIL3 SL; +CELE20TA PO; +FLUO20CA20 PO; +NICO7PA TD; +OLAN5TAB PO
[2020-09-09] MEDS ORDERED: NALOXONE 2MG/2ML SYRINGE (J2310 PER 1MG) IV STA (16:10)
[2020-09-09] MEDS ORDERED: NS 1,000 ML IV ONE (16:15)
[2020-09-09] MEDS ORDERED: NALOXONE 2MG/2ML SYRINGE (J2310 PER 1MG) ONE (16:30)
[2020-09-09 18:00] LABS: AMPHETAMINES LEVEL URINE POSITIVE (NEGATIVE); BARBITURATES URINE NEGATIVE (NEGATIVE); BENZODIAZEPINES URINE POSITIVE (NEGATIVE); CANNABINOIDS URINE POSITIVE (NEGATIVE); COCAINE METABOLITE URINE NEGATIVE (NEGATIVE); METHADONE URINE NEGATIVE (NEGATIVE); OPIATES URINE NEGATIVE (NEGATIVE); PHENCYCLIDINE URINE NEGATIVE (NEGATIVE)
[2020-09-09 18:32] LABS: BASO # 0.1 10^3/uL (0.0-0.2); BASO % 0.9 % (0.0-1.0); EOS # 0.2 10^3/uL (0.0-0.5); EOS % 2.9 % (0.0-3.0); HEMATOCRIT 34.7 % (36.0-47.0); HEMOGLOBIN 10.8 g/dl (12.0-15.5); LYMPH # 2.9 10^3/uL (1.5-5.0); LYMPH % 43.9 % (24.0-44.0); MEAN CORPUSCULAR HGB CONC 31.1 g/dl (32.0-36.5); MEAN CORPUSCULAR VOLUME 80.3 fl (80.0-96.0); MONO # 0.5 10^3/uL (0.0-0.8); MONO % 7.6 % (0.0-5.0); NEUTROPHILS # 2.9 10^3/uL (1.5-8.5); NEUTROPHILS % 44.4 % (36.0-66.0); PLATELET COUNT, AUTOMATED 234 10^3/uL (150-450); RED BLOOD COUNT 4.32 10^6/uL (4.00-5.40); WHITE BLOOD COUNT 6.5 10^3/uL (4.0-10.0)
[2020-09-09 18:44] LABS: HCG, SERUM QUALITATIVE NEGATIVE (NEGATIVE)
[2020-09-09 18:49] LABS: OSMOLALITY SERUM 286 MOSM/KG (275-295)
[2020-09-09 19:05] LABS: ACETAMINOPHEN LEVEL < 2.0 UG/ML (10.0-30.0); ALBUMIN 3.7 GM/DL (3.2-5.2); ALT/SGPT 50 U/L (12-78); BILIRUBIN,DIRECT 0.2 MG/DL (0.0-0.2); BILIRUBIN,TOTAL 0.5 MG/DL (0.2-1.0); BLOOD UREA NITROGEN 14 MG/DL (7-18); CALCIUM LEVEL 9.4 MG/DL (8.5-10.1); CARBON DIOXIDE LEVEL 30 MEQ/L (21-32); CHLORIDE LEVEL 105 MEQ/L (98-107); CPK CREATINE PHOSPHOKINASE 101 U/L (26-192); CREATININE FOR GFR 0.71 MG/DL (0.55-1.30); ETHYL ALCOHOL (ETHANOL) 0.003 % (0.000-0.010); GLOMERULAR FILTRATION RATE > 60.0 (>60); GLUCOSE, FASTING 92 MG/DL (70-100); POTASSIUM SERUM 3.9 MEQ/L (3.5-5.1); SALICYLATE LEVEL 3.1 MG/DL (5.0-30.0); SODIUM LEVEL 137 MEQ/L (136-145); TOTAL PROTEIN 7.8 GM/DL (6.4-8.2)
[2020-09-09] MEDS ORDERED: NICO7DIS24 TD (20:19)
[2020-09-09] MEDS ORDERED: BUPR1TAB52 PO (20:19)
[2020-09-09] MEDS ORDERED: CITA20TA6 PO (20:19)
[2020-09-09] MEDS ORDERED: MED REC COMMENT (20:19)
[2020-09-09] MEDS ORDERED: SUBO8MIS SL (20:19)
[2020-09-09] MEDS ORDERED: GABA600T4 PO (20:19)
[2020-09-09] MEDS ORDERED: OLAN5TAB PO (20:19)
--- NOTE | 2020-09-09 20:57 | ECGEPIP ---
[facility] - ED Test Date: 2020-09-09 Pat Name: JOHN FARR Department: Room: - Gender: Female Medical Transport Specialist: [place] : 1990 Requested By: CRUZITO Walls Order Number: [id number] Reading MD: Cruzito Flaherty Measurements Intervals [place] Rate: 75 P: 24 IA: 183 QRS: 27 QRSD: 101 T: 14 QT: 415 QTc: 464 Interpretive Statements SINUS RHYTHM Electronically Signed on 09-09-2020 20:57:49 EST by Cruzito Flaherty
[2020-09-09] MEDS: NS 1,000 ML IV SCH (21:54)
[2020-09-09 22:00] VITALS: BP 112/78
--- NOTE | 2020-09-09 23:29 | HPEPDOC ---
[facility] Medical History & Physical Date of Admission Sep 09, 2020 Date of Service: Sep 09, 2020 Primary Care Physician: JONNATHAN SR DO Attending Physician: MARIMAR HARMAN MD History and Physical CHIEF COMPLAINT: Overdose HISTORY OF PRESENT ILLNESS: Patient is a 30-year-old female who presented to the emergency department via [place] Patient was r eported to take Xanax and her Suboxone. Patient also had a bottle that was full of other psychiatric medications. Patient is on Wellbutrin, gabapentin, Zyprexa, and Celexa. It is unknown how much of these medications she ended up taking. Patient was not awake at the time of the interview and was unable to answer questions. In talking with the emergency department staff, this appears to be an unintentional overdose however, we will have to speak with the patient when she wakes up. PAST MEDICAL HISTORY: 1. Hepatitis C. 2. Bipolar disorder. 3. History of IV drug use. PAST SURGICAL HISTORY: 1. 2 C-sections. SOCIAL HISTORY: On review the medical record, patient is a current smoker and has a history of IV drug use. Patient does not drink any alcohol FAMILY HISTORY: Substance abuse ALLERGIES: Please see below. REVIEW OF SYSTEMS: Unable to obtain secondary to patient's lethargic state. Physical exam: Vital signs: See below General: Patient was sleeping but protecting her own airway and walked in the room. Patient was able to be minimally aroused with shouting and gentle shaking of the patient. Patient was able to follow some commands when she was waking up but would otherwise follow sleep very quickly. Patient does not appear to be in any acute distress. HEENT: Normocephalic, atraumatic, moist mucous membranes. Neck: No lymphadenopathy or thyromegaly Cardiac: Regular rate and rhythm, no murmurs, normal S1, normal S2 Pulm: Clear to auscultation bilaterally. No wheezes, rhonchi, rales Abd: Nondistended, nontender to palpation, normal bowel sounds Ext: Patient had an area of redness over her left knee. Patient did not withdraw from pain on palpation of this area patient has a central line in the left femoral vein. LABORATORY DATA: See below. IMAGING: No imaging has been performed MICROBIOLOGY: Please see below. ASSESSMENT: Patient is a 30-year-old female with a history of substance abuse [place] and was brought into the emergency department w ith an overdose.. . PLAN: 1. Overdose. Patient appears to overdose on Xanax and her Suboxone as well as possibly taking other psychiatric medications. Although this does not appear to be in intentional overdose, we are unsure of this is the patient was unable to answer questions. Once the patient wakes up we will speak with the patient again. Patient will be placed on continuous pulse ox monitoring and will be placed on observation in the progressive care unit for further monitoring. 2. Bipolar disorder. We will hold her current medications due to her lethargic state and possible overdose. 3. Opiate use disorder. We will hold patient's Suboxone at this time secondary to her lethargic state and possible overdose. 4. DVT prophylaxis, Lovenox. 5. CODE STATUS: Patient is full code as she is unable to answer any questions at this time. Vital Signs Vital Signs Date Time Temp Pulse Resp B/P (MAP) Pulse Ox O2 Delivery O2 Flow Rate FiO2 09/09/20 21:16 97.8 75 14 100 Room Air 09/09/20 21:00 118/74 (89) Laboratory Data Labs 24H Laboratory Tests 2 09/09/20 16:33: POC pH (Misc Panel) 7.329L, POC Base Excess (Misc Panel) 1.0, POC Saturated Percent O2 (Misc) 94L, POC pO2 (Misc Panel) 77.0L, POC pCO2 (Misc Panel) 50.7H, POC HCO3 (Misc Panel) 26.7H, POC Total CO2 (Misc Panel) 28.0H 09/09/20 17:08: Urine Opiates Screen NEGATIVE, Urine Methadone Screen NEGATIVE, Urine Barbiturates Screen NEGATIVE, Urine Phencyclidine Screen NEGATIVE, Urine Amphetamines Screen POSITIVEH, Urine Benzodiazepines Screen POSITIVEH, Urine Cocaine Metabolite Screen NEGATIVE, Urine Cannabinoids Screen POSITIVEH 09/09/20 18:10: Immature Granulocyte % (Auto) 0.3, Neutrophils (%) (Auto) 44.4, Lymphocytes (%) (Auto) 43.9, Monocytes (%) (Auto) 7.6H, Eosinophils (%) (Auto) 2.9, Basophils (%) (Auto) 0.9, Neutrophils # (Auto) 2.9, Lymphocytes # (Auto) 2.9, Monocytes # (Auto) 0.5, Eosinophils # (Auto) 0.2, Basophils # (Auto) 0.1, Nucleated Red Blood Cells % (auto) 0.0, Anion Gap 2L, Glomerular Filtration Rate > 60.0, Osmolality 286, Lactic Acid Level 0.7, Calcium Level 9.4, Total Bilirubin 0.5, Direct Bilirubin 0.2, Aspartate Amino Transf (AST/SGOT) 33, Alanine Aminotransferase (ALT/SGPT) 50, Alkaline Phosphatase 81, Total Creatine Kinase 101, Total Protein 7.8, Albumin 3.7, Albumin/Globulin Ratio 0.9L, Thyroid Stimulating Hormone (TSH) 29.600H, Human Chorionic Gonadotropin, Qual NEGATIVE, Salicylates Level 3.1L, Acetaminophen Level < 2.0L, Ethyl Alcohol Level 0.003 CBC/BMP Laboratory Tests 09/09/20 18:10 Home Medications Scheduled Buprenorphine HCl/Naloxone HCl (Suboxone 8 mg-2 mg Sl Film) 1 Each Film, 1 STRIP SL BID Bupropion HCl (Bupropion HCl Sr) 100 Mg Tab.sr.12h, 100 MG PO DAILY Citalopram Hydrobromide (Citalopram HBr) 20 Mg Tablet, 20 MG PO DAILY Gabapentin (Gabapentin) 600 Mg Tablet, 600 MG PO TID Nicotine (Nicotine Patch) 7 Mg Patch.td24, 7 MG TD DAILY Olanzapine (Olanzapine) 5 Mg Tablet, 5 MG PO DAILY Miscellaneous Medications [Med Rec Comment] LIST OBTAINED FROM PHARMACY Allergies Coded Allergies: amoxicillin (Verified Allergy, Intermediate, hives, 12/15/19) clavulanic acid (Verified Allergy, Intermediate, hives, 12/15/19) A-FIB/CHADSVASC A-FIB History Current/History of A-Fib/PAF?: No GME ATTESTATION GME ATTESTATION My faculty preceptor for this patient encounter was physically present during t he encounter and was fully available. All aspects of the patient interview, examination, medical decision making process, and medical care plan development were reviewed and approved by the faculty preceptor. The faculty preceptor is aware and concurs with the plan as stated in the body of this note and will attest to such by his/her cosignature. ATTENDING NOTE I, A Yousef, have independently examined this patient and performed my own physical exam, as well as reviewed the documentation and edited where necessary. I have discussed in detail with the resident / student the findings and plan of treatment as documented by the resident / student and edited their note. I agree with their findings and treatment plan and have edited their documentation. I will continue to follow the patient during this hospital stay. JONNATHAN SR DO Sep 09, 2020 23:29 MARIMAR HARMAN MD Sep 10, 2020 06:07
[2020-09-10] VITALS (7 sets, daily range): BP systolic 93–135; BP diastolic 51–81; O2SAT 97
[2020-09-10] MEDS: NS 1,000 ML IV SCH (05:17)
[2020-09-10] MEDS ORDERED: LEVOTHYROXINE 100MCG TABLET (0.1MG) PO SCH (06:00)
[2020-09-10 06:02] LABS: BASO % 0.4 % (0.0-1.0); EOS # 0.1 10^3/uL (0.0-0.5); EOS % 2.8 % (0.0-3.0); HEMATOCRIT 31.4 % (36.0-47.0); HEMOGLOBIN 9.5 g/dl (12.0-15.5); LYMPH % 43.9 % (24.0-44.0); MEAN CORPUSCULAR HEMOGLOBIN 24.7 pg (27.0-33.0); MEAN CORPUSCULAR HGB CONC 30.3 g/dl (32.0-36.5); MEAN CORPUSCULAR VOLUME 81.8 fl (80.0-96.0); MONO # 0.4 10^3/uL (0.0-0.8); MONO % 7.6 % (0.0-5.0); NEUTROPHILS # 2.1 10^3/uL (1.5-8.5); NEUTROPHILS % 45.1 % (36.0-66.0); PLATELET COUNT, AUTOMATED 103 10^3/uL (150-450); RED BLOOD COUNT 3.84 10^6/uL (4.00-5.40); WHITE BLOOD COUNT 4.6 10^3/uL (4.0-10.0)
[2020-09-10 06:43] LABS: ALBUMIN 2.9 GM/DL (3.2-5.2); ALT/SGPT 41 U/L (12-78); BILIRUBIN,TOTAL 0.5 MG/DL (0.2-1.0); BLOOD UREA NITROGEN 11 MG/DL (7-18); CALCIUM LEVEL 8.2 MG/DL (8.5-10.1); CARBON DIOXIDE LEVEL 25 MEQ/L (21-32); CHLORIDE LEVEL 110 MEQ/L (98-107); CREATININE FOR GFR 0.57 MG/DL (0.55-1.30); GLOMERULAR FILTRATION RATE > 60.0 (>60); GLUCOSE, FASTING 73 MG/DL (70-100); POTASSIUM SERUM 4.2 MEQ/L (3.5-5.1); SODIUM LEVEL 140 MEQ/L (136-145); TOTAL PROTEIN 6.3 GM/DL (6.4-8.2)
[2020-09-10 07:59] LABS: THYROXINE (T4) 6.7 UG/DL (4.5-12.0)
[2020-09-10] MEDS ORDERED: NICOTINE 7 MG/24 HR TRANSDERMAL TD SCH (09:00)
[2020-09-10] MEDS ORDERED: ENOXAPARIN 40MG/0.4ML SYRINGE (J1650 PER 10MG) SC SCH (09:00)
[2020-09-10 10:05] LABS: CORTISOL AM 2.9 UG/DL (4.3-22.4)
[2020-09-10] MEDS: BUPRENORPHINE/NALOXONE 8-2MG SUBLINGUAL TABLET(SUBOXONE) SL SCH ×2 (11:31→21:31)
--- NOTE | 2020-09-10 11:59 | IPNPDOC ---
Text Note Date of Service The patient was seen on 09/10/20. NOTE Subjective: Patient was able to answer my question in the morning, later she became agitated and she went to the hospital AMA. I explained to her that she cannot leave the hospital without psych evaluation Objective: GENERAL APPEARANCE: NAD HEENT: no scleral icterus, no JVD, EOMI CARDIOVASCULAR: S1S2 LUNGS: CTA ABDOMEN: soft & not tender w palpitation MUSCULOSKELETAL: no cyanosis, no swelling INTEGUMENT: no generalized palor NEUROLOGICAL: cranial nerve function from 2-12 intact intact, follows commands, speech not dysarthric A/P Patient is 30 years old female with history of bipolar disorder, polysubstance abuse was brought unresponsive to the hospital Metabolic encephalopathy Resolved for now Secondary to possible overdose with psych medications versus unknown substances. Patient was found to have urine tox screen positive for cannabinoids, benzos and amphetamines. Also there is possibility for myxedema coma, TSH was significantly elevated of 29 Continue to monitor EKG Telemetry Possible suicidal attempt Patient will need psych evaluation Cannot leave AMA Appreciate/agree with psych evaluation Hypothyroidism/ adrenal insufficiency TSH significantly elevated of 29 on admission Cortisol a.m. 2.9 We will check ACTH Dexamethasone IV for now Levothyroxine 100 mcg Opioid use disorder Patient is on Suboxone VS,Fishbone, I+O VS, Fishbone, I+O Laboratory Tests 09/09/20 18:10 09/10/20 05:30 09/10/20 05:31 Vital Signs Date Time Temp Pulse Resp B/P (MAP) Pulse Ox O2 Delivery O2 Flow Rate FiO2 09/10/20 08:00 97 Room Air 09/10/20 07:55 98.1 71 18 93/51 (65) 2.0 I&O- Last 24 Hours up to 6 AM 09/10/20 06:00 Intake Total 1875 ml Output Total 650 ml Balance 1225 ml MARIAJOSE ARIAS DO Sep 10, 2020 11:59
[2020-09-10] MEDS ORDERED: dexameTHASONE 4 MG/ML 1ML VIAL (J1100 PER 1MG) IV SCH (12:00)
[2020-09-10] MEDS ORDERED: SLF 3 ML SYR IV PRN (12:45)
[2020-09-10] MEDS: SLF 3 ML SYR IV SCH ×2 (12:58→21:07)
--- NOTE | 2020-09-10 17:39 | MHCRPDOC ---
[facility] Consultation Consultation The patient was seen on 09/10/20. HPI: The patient is seen in consultation today. She reportedly had been found walking around bizarrely in front of her apartments brandishing a knife. She was brought in where she was comatose and sedated reportedly there had been concerns of an overdose. Patient, when met with, wasn't able to explain information, and she reports she felt terrible, but couldn't describe the events that had brought her in. MEDICAL HISTORY: She is generally not able to give a great history at this time. She's well known to me from previous admission. Her past medical history includes a diagnosis of bipolar disorder, previously on Celexa bupropion and augmentation with olanzapine with some suicide attempts in the past. Her last admission was several months ago. FAMILY HISTORY: Family history has no changes from last admission. SOCIAL HISTORY - LIVING SITUATION: Social history is the patient lives in an apartment. 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 LABS: She was positive for multiple drugs and methamphetamine. Objective Behavior: Unable to provide good history. Generally cooperative. Pleasant. Mood: Dysphoric. Constricted. Thought Form: Unable to describe much of her thinking process othet than to be quite dysphoric. Judgement: Poor. Insight: Poor. Assessment F31.9 Bipolar disorder, unspecified F15.10 Other stimulant abuse, uncomplicated F15.20 Other stimulant dependence, uncomplicated Plan Patient will do best being admitted on 9.39 legal status. Once she is medically cleared, she will do well to be resumed on our previous medications as they happen effective for her. She does describe having difficulty obtaining her Celexa, which could be related to not compliance. It appears that she has attended some post discharge visits from her previous admissions. However, these do not appear to have been fairly consistent. Patient will likely stay between 3 and 5 days and treatment priorities will be 1 altered thoughts, 2 substance use, 3 risk for suicide. Vital Signs Vital Signs Date Time Temp Pulse Resp B/P (MAP) Pulse Ox O2 Delivery O2 Flow Rate FiO2 09/10/20 16:00 96.9 77 18 123/65 (84) 100 Nasal Cannula 2.0 Laboratory Data 24H Labs Laboratory Tests 2 09/09/20 18:10: Immature Granulocyte % (Auto) 0.3, Neutrophils (%) (Auto) 44.4, Lymphocytes (%) (Auto) 43.9, Monocytes (%) (Auto) 7.6H, Eosinophils (%) (Auto) 2.9, Basophils (%) (Auto) 0.9, Neutrophils # (Auto) 2.9, Lymphocytes # (Auto) 2.9, Monocytes # (Auto) 0.5, Eosinophils # (Auto) 0.2, Basophils # (Auto) 0.1, Nucleated Red Blood Cells % (auto) 0.0, Anion Gap 2L, Glomerular Filtration Rate > 60.0, Osmolality 286, Lactic Acid Level 0.7, Calcium Level 9.4, Total Bilirubin 0.5, Direct Bilirubin 0.2, Aspartate Amino Transf (AST/SGOT) 33, Alanine Aminotransferase (ALT/SGPT) 50, Alkaline Phosphatase 81, Total Creatine Kinase 101, Total Protein 7.8, Albumin 3.7, Albumin/Globulin Ratio 0.9L, Thyroid Stimulating Hormone (TSH) 29.600H, Human Chorionic Gonadotropin, Qual NEGATIVE, Salicylates Level 3.1L, Acetaminophen Level < 2.0L, Ethyl Alcohol Level 0.003 09/10/20 05:30: Anion Gap 5L, Glomerular Filtration Rate > 60.0, Calcium Level 8.2L, Total Bilirubin 0.5, Aspartate Amino Transf (AST/SGOT) 31, Alanine Aminotransferase (ALT/SGPT) 41, Alkaline Phosphatase 67, Total Protein 6.3L, Albumin 2.9#L, Albumin/Globulin Ratio 0.9L, Thyroid Stimulating Hormone (TSH) 14.600H, Magnesium Level 2.0, Thyroxine (T4) 6.7, Free Triiodothyronine 3.0, Cortisol AM Sample 2.9L 09/10/20 05:31: Immature Granulocyte % (Auto) 0.2, Neutrophils (%) (Auto) 45.1, Lymphocytes (%) (Auto) 43.9, Monocytes (%) (Auto) 7.6H, Eosinophils (%) (Auto) 2.8, Basophils (%) (Auto) 0.4, Neutrophils # (Auto) 2.1, Lymphocytes # (Auto) 2.0, Monocytes # (Auto) 0.4, Eosinophils # (Auto) 0.1, Basophils # (Auto) 0.0, Nucleated Red Blood Cells % (auto) 0.0 Home Medications Current Medications Current Medications Medications (Trade) Dose Ordered Sig/Larry Route PRN Reason Start Time Stop Time Status Last Admin Dose Admin Buprenorphine/ Naloxone (Suboxone 8/2mg) 1 tab BID SL 09/10/20 09:00 09/10/20 11:31 Dexamethasone (Decadron) 2 mg Q12H IV 09/10/20 12:00 09/11/20 12:00 09/10/20 12:38 Enoxaparin Sodium (Lovenox) 40 mg DAILY SC 09/10/20 09:00 Home Med (Med Rec Complete!) ASDIRECTED XX 09/09/20 20:30 09/09/20 20:23 DC Levothyroxine Sodium (Synthroid) 100 mcg DAILY@06 PO 09/10/20 06:00 09/10/20 12:38 Naloxone HCl (Narcan) 2 mg STAT STAT IV 09/09/20 16:10 09/09/20 16:12 DC Nicotine (Nicoderm Cq 7 Mg) 1 patch DAILY TD 09/10/20 09:00 09/10/20 12:38 Ondansetron HCl (Zofran) 2 mg Q6H PO 09/10/20 18:00 Sodium Chloride 1,000 ml @ 125 mls/hr Q8H IV 09/09/20 20:38 09/10/20 12:02 DC 09/10/20 05:17 Sodium Chloride (Saline Lock Flush) 2 ml ASDIRECTED PRN IV SEE LABEL COMMENTS 09/10/20 12:45 Sodium Chloride (Saline Lock Flush) 2 ml SLF IV 09/10/20 14:00 Scheduled Buprenorphine HCl/Naloxone HCl (Suboxone 8 mg-2 mg Sl Film) 1 Each Film, 1 STRIP SL BID, (Reported) Bupropion HCl (Bupropion HCl Sr) 100 Mg Tab.sr.12h, 100 MG PO DAILY, (Reported) Citalopram Hydrobromide (Citalopram HBr) 20 Mg Tablet, 20 MG PO DAILY, (Reported) Gabapentin (Gabapentin) 600 Mg Tablet, 600 MG PO TID, (Reported) Levothyroxine Sodium (Levothyroxine Sodium) 100 Mcg Tablet, 100 MCG PO DAILY@06 Nicotine (Nicotine Patch) 7 Mg Patch.td24, 7 MG TD DAILY, (Reported) Olanzapine (Olanzapine) 5 Mg Tablet, 5 MG PO DAILY, (Reported) Miscellaneous Medications [Med Rec Comment] , (Reported) LIST OBTAINED FROM PHARMACY Allergies Coded Allergies: amoxicillin (Verified Allergy, Intermediate, hives, 12/15/19) clavulanic acid (Verified Allergy, Intermediate, hives, 12/15/19) MARIA DEL CARMEN DARDEN DO Sep 10, 2020 17:39
[2020-09-10] MEDS ORDERED: ONDANSETRON 4 MG TAB PO SCH (18:00)
[2020-09-10] MEDS ORDERED: LEVO100T5 PO (18:56)
--- NOTE | 2020-09-11 01:53 | ECGEPIP ---
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
--- NOTE | 2020-09-13 18:06 | DS.PDOC ---
Discharge Summary General Date of Admission Sep 09, 2020 at 20:11 Date of Discharge 09/11/20 Discharge Summary PROCEDURES PERFORMED DURING STAY: [None]. ADMITTING DIAGNOSES: Metabolic encephalopathy suicidal attempt Hypothyroidism/ adrenal insufficiency Opioid use disorder DISCHARGE DIAGNOSES: Metabolic encephalopathy suicidal attempt Hypothyroidism/ adrenal insufficiency Opioid use disorder COMPLICATIONS/CHIEF COMPLAINT: Drug Overdose, Mulitiple Drugs. HISTORY OF PRESENT ILLNESS: Patient is 30 years old female with history of bipolar disorder, polysubstance abuse was brought unresponsive to the hospital HOSPITAL COURSE: During hospital stay following issues addressed Metabolic encephalopathy Secondary to possible overdose with psych medications versus unknown substances. Patient was found to have urine tox screen positive for cannabinoids, benzos and amphetamines. Also there is possibility for myxedema coma, TSH was significantly elevated of 29 Continue to monitor EKG Telemetry Possible suicidal attempt Psych team recommended transfer patient to [facility] Hypothyroidism/ adrenal insufficiency Secondary to opioids TSH significantly elevated of 29 on admission Cortisol a.m. 2.9 ACTH pending Dexamethasone IV for now Levothyroxine 100 mcg Opioid use disorder Patient is on Suboxone DISCHARGE MEDICATIONS: Please see below. ALLERGIES: Please see below. PHYSICAL EXAMINATION ON DISCHARGE: VITAL SIGNS: Please see below. GENERAL APPEARANCE: NAD HEENT: no scleral icterus, no JVD, EOMI CARDIOVASCULAR: S1S2 LUNGS: CTA ABDOMEN: soft & not tender w palpitation MUSCULOSKELETAL: no cyanosis, no swelling INTEGUMENT: no generalized palor NEUROLOGICAL: cranial nerve function from 2-12 intact intact, follows commands, speech not dysarthric LABORATORY DATA: Please see below. ACTIVITY: [As tolerated]. DIET: Regular DISPOSITION: [facility]. DISCHARGE INSTRUCTIONS: Follow-up with psychiatrist and section plotter operator in the outpatient settings DISCHARGE CONDITION: [Stable]. TIME SPENT ON DISCHARGE: Greater than 30 minutes. Vital Signs/I&Os Vital Signs Date Time Temp Pulse Resp B/P (MAP) Pulse Ox O2 Delivery O2 Flow Rate FiO2 09/10/20 19:29 98.4 85 18 119/72 (88) 98 Nasal Cannula 2.0 Discharge Medications Scheduled Buprenorphine HCl/Naloxone HCl (Suboxone 8 mg-2 mg Sl Film) 1 Each Film, 1 STRIP SL BID, (Reported) Bupropion HCl (Bupropion HCl Sr) 100 Mg Tab.sr.12h, 100 MG PO DAILY, (Reported) Citalopram Hydrobromide (Citalopram HBr) 20 Mg Tablet, 20 MG PO DAILY, (Reported) Gabapentin (Gabapentin) 600 Mg Tablet, 600 MG PO TID, (Reported) Levothyroxine Sodium (Levothyroxine Sodium) 100 Mcg Tablet, 100 MCG PO DAILY@06 Nicotine (Nicotine Patch) 7 Mg Patch.td24, 7 MG TD DAILY, (Reported) Olanzapine (Olanzapine) 5 Mg Tablet, 5 MG PO DAILY, (Reported) Miscellaneous Medications [Med Rec Comment] , (Reported) LIST OBTAINED FROM PHARMACY Allergies Coded Allergies: amoxicillin (Verified Allergy, Intermediate, hives, 12/15/19) clavulanic acid (Verified Allergy, Intermediate, hives, 12/15/19) MARIAJOSE ARIAS DO Sep 13, 2020 18:06
== END 2020-09-10 23:30 | DRG 812 ==
LOC: M ED 15:56 → EDSEX 15:56 → EDBD 15:56 → M ED INP 20:11 → ENRESERV 20:30 → M PCU 21:38
PROVIDERS: ADMIT Family Medicine; ATTEND Internal Medicine
DX: T42.4X2A Poisoning by benzodiazepines, intentional self-harm, initial encounter (principal); G93.41 Metabolic encephalopathy; F31.9 Bipolar disorder, unspecified; E27.40 Unspecified adrenocortical insufficiency; T40.492A Poisoning by other synthetic narcotics, intentional self-harm, initial encounter; F17.200 Nicotine dependence, unspecified, uncomplicated; E03.9 Hypothyroidism, unspecified; F11.10 Opioid abuse, uncomplicated; F15.20 Other stimulant dependence, uncomplicated; Z79.899 Other long term (current) drug therapy; Z88.0 Allergy status to penicillin; Z88.8 Allergy status to other drugs, medicaments and biological substances

== ENCOUNTER 2020-09-10 17:26 | Inpatient (IN) | payer OTHER ==
[~2020-09-10 17:26] MED LIST changes: +CITA20TA6 PO; +MED REC COMMENT; +NICO7DIS24 TD; +SUBO8MIS SL
[2020-09-10] MEDS ORDERED: IBUPROFEN 400 MG TAB PO PRN (17:45)
[2020-09-10] MEDS ORDERED: MOM 30ML SUSPENSION UDC PO PRN (17:45)
[2020-09-10] MEDS ORDERED: MAALOX 30 ML SUSP *UDC PO PRN (17:45)
[2020-09-10] MEDS ORDERED: OLANZapine ORAL DISINTEGRATING TAB 5MG PO PRN (17:45)
[2020-09-10] MEDS ORDERED: ACETAMINOPHEN TAB 650MG DOSE (2X325MG) PO PRN (17:45)
[2020-09-10] MEDS ORDERED: LEVO100T5 PO (18:56)
[2020-09-10] MEDS ORDERED: traZODone 50 MG TAB PO PRN (22:30)
[2020-09-10 23:57] VITALS: BP 140/98
[2020-09-11] MEDS: LEVOTHYROXINE 100MCG TABLET (0.1MG) PO SCH (06:20)
[2020-09-11 06:34] VITALS: BP 144/66
[2020-09-11] MEDS: NICOTINE 21MG/24HR 1 EA TRANSDERMAL TD SCH (08:04)
[2020-09-11] MEDS: BUPRENORPHINE/NALOXONE 8-2MG SUBLINGUAL TABLET(SUBOXONE) SL SCH ×2 (08:04→21:44)
--- NOTE | 2020-09-11 10:09 | MHHPEPDOC ---
[facility] History & Physical History and Physical DATE OF ADMISSION: Sep 10, 2020 at 23:30 Interval Hx: Jenny presents today for check up after her admission. She does not remember what brought her in, but is feeling somewhat better since being admitted. She reports that she does not have suicidal or homicidal ideations. She feels mildly dysphoric, but otherwise is feeling improved. HPI: The patient is seen in consultation today. She reportedly had been found walking around bizarrely in front of her apartments brandishing a knife. She was brought in where she was comatose and sedated reportedly there had been concerns of an overdose. Patient, when met with, wasn't able to explain information, and she reports she felt terrible, but couldn't describe the events that had brought her in. MEDICAL HISTORY: She is generally not able to give a great history at this time. She's well known to me from previous admission. Her past medical history includes a diagnosis of bipolar disorder, previously on Celexa bupropion and augmentation with olanzapine with some suicide attempts in the past. Her last admission was several months ago. FAMILY HISTORY: Family history has no changes from last admission. SOCIAL HISTORY - LIVING SITUATION: Social history is the patient lives in an apartment. 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 LABS: She was positive for multiple drugs and methamphetamine. Objective Behavior: Unable to provide good history. Generally cooperative. Pleasant. Mood: Dysphoric. Constricted. Thought Form: Unable to describe much of her thinking process othet than to be quite dysphoric. Judgement: Poor. Insight: Poor. Assessment F31.9 Bipolar disorder, unspecified F15.10 Other stimulant abuse, uncomplicated F15.20 Other stimulant dependence, uncomplicated Plan Patient will do best being admitted on 9.39 legal status. Once she is medically cleared, she will do well to be resumed on our previous medications as they happen effective for her. She does describe having difficulty obtaining her Celexa, which could be related to not compliance. It appears that she has attended some post discharge visits from her previous admissions. However, these do not appear to have been fairly consistent. Patient will likely stay between 3 and 5 days and treatment priorities will be 1 altered thoughts, 2 substance use, 3 risk for suicide. Vital Signs Vital Signs Date Time Temp Pulse Resp B/P (MAP) Pulse Ox O2 Delivery O2 Flow Rate FiO2 09/11/20 06:34 98.2 52 18 144/66 (92) Room Air 09/10/20 23:57 97 Medications Scheduled Buprenorphine HCl/Naloxone HCl (Suboxone 8 mg-2 mg Sl Film) 1 Each Film, 1 STRIP SL BID, (Reported) Bupropion HCl (Bupropion HCl Sr) 100 Mg Tab.sr.12h, 100 MG PO DAILY, (Reported) Citalopram Hydrobromide (Citalopram HBr) 20 Mg Tablet, 20 MG PO DAILY, (Reported) Gabapentin (Gabapentin) 600 Mg Tablet, 600 MG PO TID, (Reported) Levothyroxine Sodium (Levothyroxine Sodium) 100 Mcg Tablet, 100 MCG PO DAILY@06 Nicotine (Nicotine Patch) 7 Mg Patch.td24, 7 MG TD DAILY, (Reported) Olanzapine (Olanzapine) 5 Mg Tablet, 5 MG PO DAILY, (Reported) Miscellaneous Medications [Med Rec Comment] , (Reported) LIST OBTAINED FROM PHARMACY Allergies Coded Allergies: amoxicillin (Verified Allergy, Intermediate, hives, 12/15/19) clavulanic acid (Verified Allergy, Intermediate, hives, 12/15/19) A-FIB/CHADSVASC A-FIB History Current/History of A-Fib/PAF?: MARIA DEL CARMEN Ludwig DO Sep 11, 2020 10:09
[2020-09-11] MEDS ORDERED: DOCUSATE SODIUM 100 MG CAP PO PRN (12:15)
[2020-09-11] MEDS ORDERED: MIRALAX *UNIT DOSE* 17GM PACKET PO PRN (12:15)
[2020-09-11] MEDS: CitaloPRAM (CeleXA) 20 MG TAB PO SCH (13:03)
[2020-09-11] MEDS: buPROPion (WELLBUTRIN SR) 100 MG SR TAB PO SCH (13:03)
[2020-09-11] MEDS: OLANZapine 5 MG TAB PO SCH (13:03)
[2020-09-11 13:35] LABS: BLOOD UREA NITROGEN 6 MG/DL (7-18); CARBON DIOXIDE LEVEL 21 MEQ/L (21-32); CHLORIDE LEVEL 110 MEQ/L (98-107); CREATININE FOR GFR 0.57 MG/DL (0.55-1.30); GLOMERULAR FILTRATION RATE > 60.0 (>60); GLUCOSE, FASTING 80 MG/DL (70-100); POTASSIUM SERUM 4.7 MEQ/L (3.5-5.1); SODIUM LEVEL 139 MEQ/L (136-145)
[2020-09-11 13:36] LABS: CALCIUM LEVEL 9.2 MG/DL (8.5-10.1)
[2020-09-11] MEDS: GABAPENTIN 300 MG CAP PO SCH ×2 (16:03→21:44)
--- NOTE | 2020-09-11 16:26 | HPEPDOC ---
[facility] Medical History & Physical Date of Admission Sep 11, 2020 Date of Service: Sep 11, 2020 History and Physical Chief complaint: Presented to the ER after she was found unresponsive Transitioned to [facility] for substance abuse History of present illness: Patient is a 30-year-old female with a PMHx of IVDA (on Suboxone), Hepatitis C (untreated), Bipolar / Depression / Anxiety who presented to the ER on 09[place]09 [place]. Patient was reported to have taken Xanax and her Suboxone. Patient was admitted to hospital service for further evaluation and treatment of suspected unintentional overdose. On 09/10, patient was transitioned to the inpatient mental health unit under the care of psychiatry. Hospitalist service was consulted for further medical evaluation. Currently patient denies any headache, chest pain, shortness breath, palp itations, cough, nausea, vomiting, abdominal pain, diarrhea, constipation, or urinary discomfort. Patient denies any hot or cold intolerance, denies any fluctuations in her weight has reported some hair thinning. Past Medical History: IVDA (on Suboxone), Hepatitis C (untreated), Bipolar / Depression / Anxiety Past Surgical History: x2 Allergies: See below Medications: See below Family History: - Mother: - Father: - No history of malignancies Social History: - Denies the use of alcohol; Reports she is a smoker of 10 years at 1 PPD; Reports drug use via IV (Methamphetamine / Ecstasy) - Denies recent travel or sick contacts - Lives alone - Occupation; unemployed / on disability Review of Systems: 10 point review of systems complete, all negative otherwise stated in HPI Physical exam: - Vitals: BP [144/66], HR [52], RR [18], Sat [97%RA], Temp [98.2F] - General: Sitting up in chair, Speaking in full sentences, AAOx3 - HEENT: NC, AT, PERRLA - CVS: RRR, +S1S2 - Lungs: Fair air entry bilaterally, No appreciable wheezing / rales / rhonchi - Abdomen: Soft, Non-distended, Non-tender - Extremities: No lower extremity edema, No calf tenderness - Neuro: No focal motor or sensory deficit - Skin: No visible rashes Assessment and Plan: Substance abuse - Patient was found unresponsive after suspected drug abuse - Patient has been transitioned to the inpatient mental health unit under the care of psychiatry - Currently being managed by psychiatry Suspected adrenal insufficiency / Sub-clinical hypothyroidism - Patient has had cortisol level / ACTH / Thyroid function completed while inpatient - Currently patient is hemodynamically stable and asymptomatic - Low cortisol / Low ACTH possibly 2/2 secondary adrenal insufficiency as a result of chronic opiate use - TSH has been elevated; however remainder of thyroid function appears to be within normal range - Patient will likely require repeat of Thyroid function testing as an outpatient ~2 weeks - Recommend outpatient follow up with Endocrinology Hepatitis C - Patient will need outpatient follow-up with infectious disease for likely treatment Bipolar / Depression / Anxiety - Currently being managed by psychiatry DVT prophylaxis - Will c/w early ambulation Female advertising material distributor was present throughout the duration of his history and physical examination Thank you for this consultation; also service will now sign off, please reconsult as needed Vital Signs Vital Signs Date Time Temp Pulse Resp B/P (MAP) Pulse Ox O2 Delivery O2 Flow Rate FiO2 09/11/20 06:34 98.2 52 18 144/66 (92) Room Air 09/10/20 23:57 97 Laboratory Data Labs 24H Laboratory Tests 2 09/11/20 12:57: Anion Gap 8, Glomerular Filtration Rate > 60.0, Calcium Level 9.2 CBC/BMP Laboratory Tests 09/11/20 12:57 Home Medications Scheduled Buprenorphine HCl/Naloxone HCl (Suboxone 8 mg-2 mg Sl Film) 1 Each Film, 1 STRIP SL BID Bupropion HCl (Bupropion HCl Sr) 100 Mg Tab.sr.12h, 100 MG PO DAILY Citalopram Hydrobromide (Citalopram HBr) 20 Mg Tablet, 20 MG PO DAILY Gabapentin (Gabapentin) 600 Mg Tablet, 600 MG PO TID Levothyroxine Sodium (Levothyroxine Sodium) 100 Mcg Tablet, 100 MCG PO DAILY@06 Nicotine (Nicotine Patch) 7 Mg Patch.td24, 7 MG TD DAILY Olanzapine (Olanzapine) 5 Mg Tablet, 5 MG PO DAILY Miscellaneous Medications [Med Rec Comment] LIST OBTAINED FROM PHARMACY Allergies Coded Allergies: amoxicillin (Verified Allergy, Intermediate, hives, 12/15/19) clavulanic acid (Verified Allergy, Intermediate, hives, 12/15/19) MILES CHAVES MD Sep 11, 2020 16:26
[2020-09-11 18:45] VITALS: BP 150/81
[2020-09-12] MEDS: LEVOTHYROXINE 100MCG TABLET (0.1MG) PO SCH (06:18)
[2020-09-12 07:13] VITALS: BP 100/56
[2020-09-12 08:33] LABS: FREE T4 1.04 NG/DL (0.76-1.46); THYROID STIMULATING HORMONE 20.9 uIU/ML (0.358-3.740)
[2020-09-12] MEDS: buPROPion (WELLBUTRIN SR) 100 MG SR TAB PO SCH (09:36)
[2020-09-12] MEDS: CitaloPRAM (CeleXA) 20 MG TAB PO SCH (09:36)
[2020-09-12] MEDS: GABAPENTIN 300 MG CAP PO SCH ×3 (09:36→23:05)
[2020-09-12] MEDS: OLANZapine 5 MG TAB PO SCH (09:37)
[2020-09-12] MEDS: BUPRENORPHINE/NALOXONE 8-2MG SUBLINGUAL TABLET(SUBOXONE) SL SCH (09:37)
[2020-09-12] MEDS: NICOTINE 21MG/24HR 1 EA TRANSDERMAL TD SCH (09:38)
[2020-09-12 17:54] VITALS: BP 129/72
[2020-09-13] MEDS: LEVOTHYROXINE 100MCG TABLET (0.1MG) PO SCH (05:43)
[2020-09-13 06:56] VITALS: BP 111/57
[2020-09-13] MEDS: buPROPion (WELLBUTRIN SR) 100 MG SR TAB PO SCH (08:43)
[2020-09-13] MEDS: GABAPENTIN 300 MG CAP PO SCH ×3 (08:44→21:00)
[2020-09-13] MEDS: OLANZapine 5 MG TAB PO SCH (08:44)
[2020-09-13] MEDS: CitaloPRAM (CeleXA) 20 MG TAB PO SCH (08:44)
[2020-09-13] MEDS: NICOTINE 21MG/24HR 1 EA TRANSDERMAL TD SCH (08:44)
[2020-09-13] MEDS: BUPRENORPHINE/NALOXONE 8-2MG SUBLINGUAL TABLET(SUBOXONE) SL SCH (09:56)
[2020-09-13 18:45] VITALS: BP 126/70
[2020-09-14] MEDS: LEVOTHYROXINE 100MCG TABLET (0.1MG) PO SCH (06:19)
[2020-09-14 06:32] VITALS: BP 108/61
[2020-09-14] MEDS: GABAPENTIN 300 MG CAP PO SCH ×3 (08:26→21:00)
[2020-09-14] MEDS: NICOTINE 21MG/24HR 1 EA TRANSDERMAL TD SCH (08:26)
[2020-09-14] MEDS: CitaloPRAM (CeleXA) 20 MG TAB PO SCH (08:26)
[2020-09-14] MEDS: OLANZapine 5 MG TAB PO SCH (08:26)
[2020-09-14] MEDS: buPROPion (WELLBUTRIN SR) 100 MG SR TAB PO SCH (08:26)
[2020-09-14] MEDS: BUPRENORPHINE/NALOXONE 8-2MG SUBLINGUAL TABLET(SUBOXONE) SL SCH (09:29)
[2020-09-14 10:10] LABS: CORTISOL AM 12.4 UG/DL (4.3-22.4); TOTAL T3 92.8 NG/DL (60.0-181.0)
[2020-09-14 16:09] VITALS: BP 108/62
--- NOTE | 2020-09-14 16:29 | MHIPNPDOC ---
[facility] Progress Note Progress Note DATE OF SERVICE: 09/14/20 HISTORY: Patient is a 30 year old Single, Unemployed, Domiciled, Female who was a direct admit from medical for a suspected overdose. She was found walking around bizarrely in front of her apartments brandishing a knife. She was brought in where she was comatose and sedated. In today's interview she stated that she was sitting outside of the [facility] with her father and she slumped over and he called 911. She states she does not know why she had this "medical emergency" because she takes all of her medications. VITAL SIGNS: See below. NEW TEST RESULTS: CURRENT MEDICATIONS: See below. MENTAL STATUS EXAMINATION: Patient is 30 year old Single, Unemployed, Domiciled, Female who was a direct admit from medical for a suspected overdose. She appears older than her stated age, she is dressed appropriately in hospital scrubs, her hygiene and grooming is fair, makes good eye contact and she appears to be sluggish when walking. Speech: Is fluid, conversant, normal rate, tone and volume Language skills are intact Thought processes including: linear and goal oriented Thought content: reports depression and anxiety. Abstract reasoning, and computation: fair Description of associations: denies, none observed Description of abnormal or psychotic thoughts: denies, none observed. Judgment: fair Insight: fair Orientation: alert and oriented to person, place, time and situation Recent and remote memory: intact Attention span and concentration: good Language: expansive Fund of knowledge: below average Mood: "I am ok" Affect: flat DIAGNOSES: F31.9 Bipolar disorder, unspecified F15.10 Other stimulant abuse, uncomplicated F15.20 Other stimulant dependence, uncomplicated ASSESSMENT: Patient appears to have continued confusions but mildly. I reinforced with patient that she will be discharged when the treatment team feels that she has met criteria for discharge. Patient reports that she has housing in [place] and lives alone but that she still has housing issues. States that [facility] has to renew her housing. She does appear to have improved mentation but she had periods of confusion. She denies depression, but she has flat and depressed affect. MANAGEMENT PLAN: Patient to continue all medications, discharge when she is stable. TIME SPENT: 15 minutes. Vital Signs Vital Signs Date Time Temp Pulse Resp B/P (MAP) Pulse Ox O2 Delivery O2 Flow Rate FiO2 09/14/20 16:09 98.2 58 16 108/62 (77) 09/14/20 06:32 98 Room Air Current Medications Current Medications Medications (Trade) Dose Ordered Sig/Larry Route PRN Reason Start Time Stop Time Status Last Admin Dose Admin Acetaminophen (Tylenol Tab) 650 mg Q6HP PRN PO HEADACHE or DISCOMFORT 09/10/20 17:45 Al Hydrox/Mg Hydrox/Simethicone (Mylanta) 30 ml Q4HP PRN PO HEARTBURN/INDIGESTION 09/10/20 17:45 Buprenorphine/ Naloxone (Suboxone 8/2mg) 1 tab BID SL 09/11/20 09:00 09/11/20 21:00 DC 09/11/20 21:44 Buprenorphine/ Naloxone (Suboxone 8/2mg) 2 tab DAILY SL 09/12/20 09:00 09/14/20 09:29 Bupropion HCl (Wellbutrin Sr) 100 mg DAILY PO 09/11/20 09:00 09/14/20 08:26 Citalopram Hydrobromide (CeleXA) 20 mg DAILY PO 09/11/20 09:00 09/14/20 08:26 Docusate Sodium (Colace) 100 mg BIDP PRN PO CONSTIPATION 09/11/20 12:15 09/11/20 13:03 Gabapentin (Neurontin) 600 mg TID PO 09/11/20 16:00 09/14/20 15:20 Ibuprofen (Advil) 400 mg Q6HP PRN PO PAIN 09/10/20 17:45 Levothyroxine Sodium (Synthroid) 100 mcg DAILY@06 PO 09/11/20 06:00 09/14/20 06:19 Magnesium Hydroxide (Milk Of Magnesia) 30 ml DAILYPRN PRN PO CONSTIPATION 09/10/20 17:45 Nicotine (Nicoderm Cq 21mg) 1 patch DAILY TD 09/11/20 09:00 09/14/20 08:26 Olanzapine (ZyPREXA ZYDIS) 5 mg Q4HP PRN PO AGITATION 09/10/20 17:45 Olanzapine (ZyPREXA) 5 mg DAILY PO 09/11/20 09:00 09/14/20 08:26 Polyethylene Glycol (Miralax) 1 pkt DAILYPRN PRN PO CONSTIPATION 09/11/20 12:15 Trazodone HCl (Desyrel) 50 mg QHSP PRN PO INSOMNIA 09/10/20 22:30 09/12/20 23:05 Allergies Coded Allergies: amoxicillin (Verified Allergy, Intermediate, hives, 12/15/19) clavulanic acid (Verified Allergy, Intermediate, hives, 12/15/19) STANLEY KITCHEN NP Sep 14, 2020 16:29
[2020-09-15] MEDS: LEVOTHYROXINE 100MCG TABLET (0.1MG) PO SCH (06:34)
[2020-09-15 06:46] VITALS: BP 97/54
--- NOTE | 2020-09-15 07:18 | MHIPN ---
DATE OF SERVICE: 09/12/2020 Patient states I am doing better. She says she finally got some rest and she slept well. She feels that the medications are beginning to become effective. MENTAL STATUS EXAM: This patient is alert and oriented times 3. Eye contact is fair. Psychomotor activity is normal. There was no formal thought disorder. The patient described her mood as better. Affect is constricted, but appropriate to her mood. I did not elicit any psychotic symptoms and she was denying suicidal or homicidal ideations. Concentration was fair. Insight and judgment is fair. DIAGNOSES: * Unspecified bipolar disorder. * Stimulant use disorder. TREATMENT PLAN: At this point we will continue to monitor the patient for further stabilization of her mood and resolution of any possible psychotic behavior. She is denying suicidal or homicidal ideations at this point. JAYSHREE
[2020-09-15] MEDS: NICOTINE 21MG/24HR 1 EA TRANSDERMAL TD SCH (08:34)
[2020-09-15] MEDS: GABAPENTIN 300 MG CAP PO SCH ×2 (08:34→15:19)
[2020-09-15] MEDS: buPROPion (WELLBUTRIN SR) 100 MG SR TAB PO SCH (08:34)
[2020-09-15] MEDS: CitaloPRAM (CeleXA) 20 MG TAB PO SCH (08:35)
[2020-09-15] MEDS: OLANZapine 5 MG TAB PO SCH (08:35)
[2020-09-15] MEDS: BUPRENORPHINE/NALOXONE 8-2MG SUBLINGUAL TABLET(SUBOXONE) SL SCH (08:35)
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
[2020-09-15] MEDS ORDERED: OLAN5TAB PO (12:39)
[2020-09-15] MEDS ORDERED: GABA600T4 PO (12:39)
[2020-09-15] MEDS ORDERED: SUBO8MIS SL (12:40)
[2020-09-15] MEDS ORDERED: CITA20TA6 PO (12:40)
[2020-09-15] MEDS ORDERED: BUPR1TAB52 PO (12:40)
--- NOTE | 2020-09-17 08:26 | MHIPN ---
DATE: 09/13/2020 The patient today states that she is doing "well." She feels that she is sleeping better and her concentration has improved. She is denying suicidal thoughts. MENTAL STATUS EXAMINATION: She is alert and oriented times three. She is pleasant and cooperative, verbally spontaneous. There is no formal thought disorder noted. Mood is "well." Affect is restricted but appropriate to mood. She is not psychotic, or at least I have not elicited any psychotic symptoms. She is denying suicidal or homicidal ideation. Concentration is fair. Insight and judgment fair. DIAGNOSES: 1. Unspecified bipolar disorder. 2. Stimulant use disorder. TREATMENT PLAN: At this point, we will continue to monitor the patient for continued resolution of psychotic symptoms and further stabilization of her mood. We will titrate medications as indicated. JAYSHREE
== END 2020-09-15 15:24 | disposition home or self-care (01) | DRG 773 ==
LOC: M PSY 23:30
PROVIDERS: ADMIT Psychiatry & Neurology Addiction Medicine; ATTEND Psychiatry & Neurology Addiction Medicine
DX: F15.259 Other stimulant dependence with stimulant-induced psychotic disorder, unspecified (principal); F17.200 Nicotine dependence, unspecified, uncomplicated; F11.20 Opioid dependence, uncomplicated; E27.40 Unspecified adrenocortical insufficiency; E02 Subclinical iodine-deficiency hypothyroidism; B19.20 Unspecified viral hepatitis C without hepatic coma; Z79.899 Other long term (current) drug therapy; Z88.0 Allergy status to penicillin; Z88.8 Allergy status to other drugs, medicaments and biological substances

== ENCOUNTER 2022-03-29 00:11 | Emergency (ER) | payer OTHER ==
[~2022-03-29] VITALS: Ht 167.6 cm; Wt 95.5 kg
[~2022-03-29 00:11] MED LIST changes: +BACTDSTA PO; +DOXY-443 PO; -DOXY100C37 PO; +FLUO-96 PO; -FLUO20CA20 PO; +GABA-282 PO; +GABA-283 PO; -GABA-843 PO; -GABA-845 PO; +LEVO100T5 PO; +METH-1165 PO; -METH750T2 PO; +OLAN1TAB16 PO; -OLAN5TAB PO; +RISP-7 PO; -RISP0.5T3 PO; -SULF1TAB93 PO
[2022-03-29 00:12] VITALS: BP 124/80
[2022-03-29] MEDS ORDERED: METH-1177 PO (00:20)
== END 2022-03-29 03:44 | disposition left against medical advice (07) ==
LOC: M ED 00:11
DX: Z53.21 Procedure and treatment not carried out due to patient leaving prior to being seen by health care provider (principal)

== ENCOUNTER 2023-11-21 14:11 | Inpatient (IN) | payer MEDICAID, OTHER ==
[~2023-11-21] VITALS: Ht 167.6 cm; Wt 125.9 kg
[~2023-11-21 14:11] MED LIST changes: -GABA-283 PO; +GABA-284 PO; +METH-1177 PO; +MIRT-84 PO; -REME15TA2 PO; +TOPI-21; -TOPI50TA9
[2023-11-21] MEDS ORDERED: MED REC IN PROGRESS XX SCH (15:20)
[2023-11-21] MEDS ORDERED: GABA800T4 PO (15:38)
[2023-11-21] MEDS ORDERED: DULO1CAP6 PO (15:38)
[2023-11-21] MEDS ORDERED: OXYB5TAB11 PO (15:38)
[2023-11-21] MEDS ORDERED: SENN-83 PO (15:38)
[2023-11-21] MEDS ORDERED: VRAY4.5C PO (15:38)
[2023-11-21] MEDS ORDERED: HOME MED LIST COMPLETE! XX SCH (15:40)
[2023-11-21 15:55] LABS: HEMOGLOBIN 15.9 g/dl (12.0-15.5); MEAN CORPUSCULAR HEMOGLOBIN 29.7 pg (27.0-33.0); MEAN CORPUSCULAR HGB CONC 33.8 g/dl (32.0-36.5); MEAN CORPUSCULAR VOLUME 87.9 fl (80.0-96.0); PLATELET COUNT, AUTOMATED 230 10^3/uL (150-450); RED BLOOD COUNT 5.35 10^6/uL (4.00-5.40); WHITE BLOOD COUNT 11.7 10^3/uL (4.0-10.0)
[2023-11-21 16:03] LABS: ETHYL ALCOHOL (ETHANOL) < 0.003 % (0.000-0.010)
[2023-11-21 16:05] LABS: ALBUMIN 4.2 G/DL (3.2-5.2); ALKALINE PHOSPHATASE 108 U/L (46-116); ALT/SGPT 28 U/L (7.0-40); AST/SGOT 30 U/L (<34); BILIRUBIN,DIRECT 0.3 MG/DL (<0.4); BILIRUBIN,TOTAL 0.8 MG/DL (0.3-1.2); BLOOD UREA NITROGEN 14 MG/DL (9-23); CALCIUM LEVEL 9.9 MG/DL (8.5-10.1); CARBON DIOXIDE LEVEL 24 MMOL/L (20-31); CHLORIDE LEVEL 103 MMOL/L (98-107); CREATININE FOR GFR 0.84 MG/DL (0.55-1.30); GLOMERULAR FILTRATION RATE > 60.0 (>60); GLUCOSE, FASTING 83 MG/DL (60-100); POTASSIUM SERUM 4.3 MMOL/L (3.5-5.1); SALICYLATE LEVEL < 3.0 MG/DL (<30); SODIUM LEVEL 136 MMOL/L (136-145); TOTAL PROTEIN 9.2 G/DL (5.7-8.2)
[2023-11-21 16:08] LABS: THYROID STIMULATING HORMONE 34.062 uIU/ML (0.55-4.78)
[2023-11-21 16:09] LABS: HCG, SERUM QUALITATIVE NEGATIVE (NEGATIVE)
[2023-11-21 19:05] LABS: AMPHETAMINES LEVEL URINE NEGATIVE (NEGATIVE); BARBITURATES URINE NEGATIVE (NEGATIVE); COCAINE METABOLITE URINE NEGATIVE (NEGATIVE); PHENCYCLIDINE URINE NEGATIVE (NEGATIVE)
[2023-11-21 19:07] LABS: BENZODIAZEPINES URINE POSITIVE (NEGATIVE); CANNABINOIDS URINE POSITIVE (NEGATIVE); METHADONE URINE POSITIVE (NEGATIVE); OPIATES URINE POSITIVE (NEGATIVE)
[2023-11-22] MEDS ORDERED: MOM 30ML SUSPENSION UDC PO PRN (00:25)
[2023-11-22] MEDS ORDERED: MAALOX 30 ML SUSP *UDC PO PRN (00:25)
[2023-11-22] MEDS: ACETAMINOPHEN TAB 650MG DOSE (2X325MG) PO PRN (02:02)
[2023-11-22] MEDS: traZODone 50 MG TAB PO PRN ×2 (02:02→21:18)
[2023-11-22] MEDS: diphenhydrAMINE 25MG CAP PO PRN (02:02)
[2023-11-22] MEDS: oxyBUTYnin 5 MG TAB PO SCH ×2 (09:00→21:18)
[2023-11-22] MEDS ORDERED: SENNA 8.6 MG TAB (SENOKOT) PO PRN (09:50)
[2023-11-22] MEDS: GABAPENTIN 400MG CAP PO SCH ×4 (10:10→21:18)
[2023-11-22] MEDS: METHADONE 5MG TAB PO SCH (10:10)
[2023-11-22] MEDS: CARIPRAZINE 1.5MG CAPSULE (VRAYLAR) PO SCH (10:10)
[2023-11-22] MEDS: METHADONE 10MG TAB PO SCH (10:11)
[2023-11-22 11:52] LABS: FREE T3 3.3 PG/ML (2.3-4.2)
[2023-11-22 11:53] LABS: FREE T4 0.9 NG/DL (0.89-1.76); TOTAL T3 165.3 NG/DL (60.0-181.0)
[2023-11-22 12:25] LABS: CORTISOL AM 59.8 UG/DL (4.3-22.4)
[2023-11-22 17:23] VITALS: BP 134/90; TEMP 97.4
[2023-11-22] MEDS: IBUPROFEN 400MG TAB PO PRN (21:18)
[2023-11-23 06:57] VITALS: BP 118/65; TEMP 97.4; O2SAT 98
[2023-11-23] MEDS: METHADONE 10MG TAB PO SCH (09:01)
[2023-11-23] MEDS: METHADONE 5MG TAB PO SCH (09:01)
[2023-11-23] MEDS: GABAPENTIN 400MG CAP PO SCH ×4 (09:01→21:41)
[2023-11-23] MEDS: CARIPRAZINE 1.5MG CAPSULE (VRAYLAR) PO SCH (09:01)
[2023-11-23] MEDS: oxyBUTYnin 5 MG TAB PO SCH ×2 (09:01→21:41)
[2023-11-23 17:05] VITALS: BP 140/86; TEMP 97.2; O2SAT 95
[2023-11-23] MEDS: traZODone 50 MG TAB PO PRN (21:42)
[2023-11-24 06:40] VITALS: BP 115/60; TEMP 97.6; O2SAT 94
[2023-11-24] MEDS: CARIPRAZINE 1.5MG CAPSULE (VRAYLAR) PO SCH (08:51)
[2023-11-24] MEDS: GABAPENTIN 400MG CAP PO SCH ×4 (08:51→21:23)
[2023-11-24] MEDS: METHADONE 10MG TAB PO SCH (08:51)
[2023-11-24] MEDS: oxyBUTYnin 5 MG TAB PO SCH ×2 (08:51→21:23)
[2023-11-24] MEDS: METHADONE 5MG TAB PO SCH (08:51)
[2023-11-24] MEDS: OLANZapine 2.5MG TABLET PO SCH (09:54)
[2023-11-24] MEDS: IBUPROFEN 400MG TAB PO PRN (15:56)
[2023-11-24] MEDS: traZODone 50 MG TAB PO PRN (21:23)
[2023-11-25 06:43] VITALS: BP 96/52; TEMP 97.7; O2SAT 96
[2023-11-25] MEDS: ACETAMINOPHEN TAB 650MG DOSE (2X325MG) PO PRN (07:53)
[2023-11-25] MEDS: GABAPENTIN 400MG CAP PO SCH (08:57)
[2023-11-25] MEDS: METHADONE 5MG TAB PO SCH (08:57)
[2023-11-25] MEDS: METHADONE 10MG TAB PO SCH (08:58)
[2023-11-25] MEDS: oxyBUTYnin 5 MG TAB PO SCH ×2 (08:58→21:18)
[2023-11-25] MEDS: CARIPRAZINE 1.5MG CAPSULE (VRAYLAR) PO SCH (08:58)
[2023-11-25] MEDS: OLANZapine 2.5MG TABLET PO SCH ×2 (08:58→21:18)
[2023-11-25] MEDS: GABAPENTIN 300 MG CAP PO SCH ×3 (13:25→21:19)
[2023-11-25 16:01] VITALS: BP 123/87; TEMP 97; O2SAT 95
[2023-11-25] MEDS: traZODone 25MG PER 1/2 TABLET PO PRN (21:18)
[2023-11-25] MEDS: IBUPROFEN 400MG TAB PO PRN (21:19)
[2023-11-26 06:50] VITALS: BP 118/65; TEMP 97.8; O2SAT 95
[2023-11-26] MEDS: METHADONE 5MG TAB PO SCH (09:15)
[2023-11-26] MEDS: GABAPENTIN 300 MG CAP PO SCH ×4 (09:15→21:20)
[2023-11-26] MEDS: OLANZapine 2.5MG TABLET PO SCH (09:16)
[2023-11-26] MEDS: CARIPRAZINE 1.5MG CAPSULE (VRAYLAR) PO SCH (09:16)
[2023-11-26] MEDS: METHADONE 10MG TAB PO SCH (09:16)
[2023-11-26] MEDS: oxyBUTYnin 5 MG TAB PO SCH ×2 (09:16→21:20)
[2023-11-26 16:24] VITALS: BP 122/81; TEMP 97.9; O2SAT 96
[2023-11-26] MEDS: OLANZapine 5 MG TAB PO SCH (21:20)
[2023-11-26] MEDS: traZODone 25MG PER 1/2 TABLET PO PRN (21:20)
[2023-11-27 06:43] VITALS: BP 122/69; TEMP 97.6; O2SAT 97
[2023-11-27] MEDS: METHADONE 10MG TAB PO SCH (08:59)
[2023-11-27] MEDS: CARIPRAZINE 1.5MG CAPSULE (VRAYLAR) PO SCH (08:59)
[2023-11-27] MEDS: oxyBUTYnin 5 MG TAB PO SCH ×2 (08:59→20:49)
[2023-11-27] MEDS: METHADONE 5MG TAB PO SCH (08:59)
[2023-11-27] MEDS: OLANZapine 5 MG TAB PO SCH ×2 (08:59→20:50)
[2023-11-27] MEDS: GABAPENTIN 300 MG CAP PO SCH ×4 (08:59→20:50)
[2023-11-27 12:28] VITALS: BP 122/69; TEMP 97.6; O2SAT 97
[2023-11-27 18:52] VITALS: BP 117/82; TEMP 98.4; O2SAT 96
[2023-11-28 05:59] VITALS: BP 110/67; TEMP 97; O2SAT 98
[2023-11-28] MEDS: METHADONE 5MG TAB PO SCH (08:52)
[2023-11-28] MEDS: OLANZapine 5 MG TAB PO SCH ×2 (08:52→20:15)
[2023-11-28] MEDS: oxyBUTYnin 5 MG TAB PO SCH ×2 (08:52→20:15)
[2023-11-28] MEDS: CARIPRAZINE 1.5MG CAPSULE (VRAYLAR) PO SCH (08:53)
[2023-11-28] MEDS: METHADONE 10MG TAB PO SCH (08:53)
[2023-11-28] MEDS: GABAPENTIN 300 MG CAP PO SCH (08:53)
[2023-11-28] MEDS: GABAPENTIN 400MG CAP PO SCH ×3 (12:25→20:15)
[2023-11-28 18:41] VITALS: BP 128/80; TEMP 98.3; O2SAT 97
[2023-11-28] MEDS: traZODone 25MG PER 1/2 TABLET PO PRN (20:15)
[2023-11-29 06:07] VITALS: BP 121/88; TEMP 98.1; O2SAT 96
[2023-11-29] MEDS: oxyBUTYnin 5 MG TAB PO SCH ×2 (08:27→20:09)
[2023-11-29] MEDS: GABAPENTIN 400MG CAP PO SCH ×4 (08:27→20:09)
[2023-11-29] MEDS: OLANZapine 5 MG TAB PO SCH ×2 (08:27→20:09)
[2023-11-29] MEDS: METHADONE 5MG TAB PO SCH (08:27)
[2023-11-29] MEDS: ACETAMINOPHEN TAB 650MG DOSE (2X325MG) PO PRN (08:28)
[2023-11-29] MEDS: METHADONE 10MG TAB PO SCH (08:28)
[2023-11-29] MEDS: CARIPRAZINE 3MG CAPSULE (VRAYLAR) PO SCH (08:28)
[2023-11-29] MEDS: diphenhydrAMINE 25MG CAP PO PRN (11:37)
[2023-11-29 16:42] VITALS: BP 142/88; TEMP 97.6; O2SAT 96
[2023-11-29] MEDS: traZODone 25MG PER 1/2 TABLET PO PRN (20:09)
[2023-11-30 06:08] VITALS: BP 137/82; TEMP 98.7; O2SAT 97
[2023-11-30] MEDS: oxyBUTYnin 5 MG TAB PO SCH ×2 (08:17→21:00)
[2023-11-30] MEDS: OLANZapine 5 MG TAB PO SCH ×2 (08:17→21:00)
[2023-11-30] MEDS: METHADONE 5MG TAB PO SCH (08:18)
[2023-11-30] MEDS: METHADONE 10MG TAB PO SCH (08:18)
[2023-11-30] MEDS: CARIPRAZINE 3MG CAPSULE (VRAYLAR) PO SCH (08:18)
[2023-11-30] MEDS: GABAPENTIN 400MG CAP PO SCH ×4 (08:18→21:00)
[2023-11-30 15:56] VITALS: BP 140/89; TEMP 98.6; O2SAT 100
[2023-12-01 06:29] VITALS: BP 104/58; TEMP 98.2; O2SAT 95
[2023-12-01] MEDS: GABAPENTIN 400MG CAP PO SCH ×4 (08:15→21:23)
[2023-12-01] MEDS: oxyBUTYnin 5 MG TAB PO SCH ×2 (08:15→21:23)
[2023-12-01] MEDS: METHADONE 5MG TAB PO SCH (08:15)
[2023-12-01] MEDS: CARIPRAZINE 3MG CAPSULE (VRAYLAR) PO SCH (08:15)
[2023-12-01] MEDS: METHADONE 10MG TAB PO SCH (08:15)
[2023-12-01] MEDS: OLANZapine 5 MG TAB PO SCH ×2 (08:15→21:23)
[2023-12-01] MEDS ORDERED: BENZOCAINE 10% 9GM TUBE (ANBESOL) MT PRN (16:05)
[2023-12-01 16:25] VITALS: BP 136/69; TEMP 98.2; O2SAT 99
[2023-12-02 06:15] VITALS: BP 125/71; TEMP 97.5; O2SAT 97
[2023-12-02] MEDS: METHADONE 5MG TAB PO SCH (08:36)
[2023-12-02] MEDS: CARIPRAZINE 3MG CAPSULE (VRAYLAR) PO SCH (08:36)
[2023-12-02] MEDS: oxyBUTYnin 5 MG TAB PO SCH ×2 (08:36→20:33)
[2023-12-02] MEDS: OLANZapine 5 MG TAB PO SCH ×2 (08:36→20:33)
[2023-12-02] MEDS: METHADONE 10MG TAB PO SCH (08:36)
[2023-12-02] MEDS: GABAPENTIN 400MG CAP PO SCH ×4 (08:36→20:33)
[2023-12-02 16:13] VITALS: BP 116/74; TEMP 97.5; O2SAT 98
[2023-12-02] MEDS: traZODone 25MG PER 1/2 TABLET PO PRN (20:33)
[2023-12-03 06:19] VITALS: BP 140/85; TEMP 99.1; O2SAT 96
[2023-12-03] MEDS: CARIPRAZINE 3MG CAPSULE (VRAYLAR) PO SCH (08:10)
[2023-12-03] MEDS: GABAPENTIN 400MG CAP PO SCH ×4 (08:10→20:55)
[2023-12-03] MEDS: OLANZapine 5 MG TAB PO SCH ×2 (08:10→20:55)
[2023-12-03] MEDS: METHADONE 10MG TAB PO SCH (08:10)
[2023-12-03] MEDS: oxyBUTYnin 5 MG TAB PO SCH ×2 (08:10→20:55)
[2023-12-03] MEDS: METHADONE 5MG TAB PO SCH (08:10)
[2023-12-03 15:47] VITALS: BP 130/86; TEMP 98.1; O2SAT 98
[2023-12-03] MEDS: traZODone 25MG PER 1/2 TABLET PO PRN (20:55)
[2023-12-04 06:08] VITALS: BP 127/85; TEMP 98.7; O2SAT 94
[2023-12-04] MEDS: OLANZapine 5 MG TAB PO SCH (08:23)
[2023-12-04] MEDS: GABAPENTIN 400MG CAP PO SCH (08:23)
[2023-12-04] MEDS: oxyBUTYnin 5 MG TAB PO SCH (08:23)
[2023-12-04] MEDS: METHADONE 10MG TAB PO SCH (08:23)
[2023-12-04] MEDS: CARIPRAZINE 3MG CAPSULE (VRAYLAR) PO SCH (08:23)
[2023-12-04] MEDS: METHADONE 5MG TAB PO SCH (08:23)
== END 2023-12-04 09:23 | DRG 753 ==
LOC: M ED 14:11 → M ED INP 11-22 00:21 → M PSY 11-22 01:55
PROVIDERS: ADMIT Psychiatry & Neurology Psychiatry; ATTEND Student in an Organized Health Care Education/Training Program
DX: F31.9 Bipolar disorder, unspecified (principal); F11.150 Opioid abuse with opioid-induced psychotic disorder with delusions; F11.151 Opioid abuse with opioid-induced psychotic disorder with hallucinations; F17.210 Nicotine dependence, cigarettes, uncomplicated; F11.13 Opioid abuse with withdrawal; F43.9 Reaction to severe stress, unspecified; F12.10 Cannabis abuse, uncomplicated; Z81.3 Family history of other psychoactive substance abuse and dependence; Z81.8 Family history of other mental and behavioral disorders; Z79.899 Other long term (current) drug therapy; Z88.0 Allergy status to penicillin; Z88.8 Allergy status to other drugs, medicaments and biological substances

== ENCOUNTER 2024-03-19 20:59 | Emergency (ER) | payer MEDICAID, OTHER ==
[~2024-03-19] VITALS: Ht 167.6 cm; Wt 138.5 kg
[~2024-03-19 20:59] MED LIST changes: +DOXY-323 PO; -DOXY-443 PO; +DULO1CAP6 PO; +FLUO-365; +FLUO-365 PO; -FLUO20CA22; -FLUO20CA22 PO; +GABA800T4 PO; -KLON1TAB PO; +KLON1TAB13 PO; +OXYB5TAB14 PO; -RISP-7 PO; +RISP0.5T82 PO; +SENN-83 PO; +VRAY4.5C PO
[2024-03-19] MEDS: fentaNYL 100 MCG/2 ML INJECTION IV ONE ×3 (22:31→23:13)
[2024-03-19] MEDS: HYDROMORPHONE HCL 0.5 MG/ 0.5 ML SYRINGE IV ONE (22:55)
[2024-03-19] MEDS: MIDAZOLAM INJ 2MG/2ML VIAL IV STA (23:02)
[2024-03-19] MEDS: MIDAZOLAM INJ 2MG/2ML VIAL IV ONE ×3 (23:08→23:15)
[2024-03-20 00:22] LABS: BLOOD UREA NITROGEN 16 MG/DL (9-23); CALCIUM LEVEL 8.9 MG/DL (8.5-10.1); CARBON DIOXIDE LEVEL 30 MMOL/L (20-31); CHLORIDE LEVEL 103 MMOL/L (98-107); CREATININE FOR GFR 0.75 MG/DL (0.55-1.30); GLOMERULAR FILTRATION RATE > 60.0 (>60); GLUCOSE, FASTING 106 MG/DL (60-100); MAGNESIUM LEVEL 1.7 MG/DL (1.8-2.4); POTASSIUM SERUM 4.2 MMOL/L (3.5-5.1); SODIUM LEVEL 138 MMOL/L (136-145)
[2024-03-20] MEDS ORDERED: HYDR-3713 PO (00:23)
[2024-03-20 00:27] LABS: BASO # 0.1 10^3/uL (0.0-0.2); BASO % 0.5 % (0.0-1.0); EOS # 0.1 10^3/uL (0.0-0.5); EOS % 0.7 % (0.0-3.0); HEMATOCRIT 38.9 % (36.0-47.0); LYMPH # 2.3 10^3/uL (1.5-5.0); LYMPH % 23.4 % (24.0-44.0); MEAN CORPUSCULAR HEMOGLOBIN 30.4 pg (27.0-33.0); MEAN CORPUSCULAR HGB CONC 33.4 g/dl (32.0-36.5); MEAN CORPUSCULAR VOLUME 91.1 fl (80.0-96.0); MONO # 0.5 10^3/uL (0.0-0.8); MONO % 5.2 % (2.0-8.0); NEUTROPHILS # 6.9 10^3/uL (1.5-8.5); NEUTROPHILS % 69.7 % (36.0-66.0); PLATELET COUNT, AUTOMATED 208 10^3/uL (150-450); RED BLOOD COUNT 4.27 10^6/uL (4.00-5.40); WHITE BLOOD COUNT 9.8 10^3/uL (4.0-10.0)
[2024-03-20] MEDS: PERCOCET 5MG/325MG TAB PO ONE ×2 (01:28→03:29)
[2024-03-20] MEDS: fentaNYL 100 MCG/2 ML INJECTION IV ONE (03:30)
[2024-03-20 05:50] VITALS: BP 133/83; TEMP 98; O2SAT 92
== END 2024-03-20 05:59 | disposition home or self-care (01) ==
LOC: M ED 20:59
DX: S82.851A Displaced trimalleolar fracture of right lower leg, initial encounter for closed fracture (principal); Y92.019 Unspecified place in single-family (private) house as the place of occurrence of the external cause; Y93.K1 Activity, walking an animal; Y99.9 Unspecified external cause status; F17.210 Nicotine dependence, cigarettes, uncomplicated; F10.10 Alcohol abuse, uncomplicated; Z88.1 Allergy status to other antibiotic agents; Z88.8 Allergy status to other drugs, medicaments and biological substances; Z79.1 Long term (current) use of non-steroidal anti-inflammatories (NSAID); Z79.899 Other long term (current) drug therapy
CPT/HCPCS: 36415; 71045; 73590; 73600; 73700; 80048; 83735; 85025; 93005; 96374; 96375; 96376; 99291; J1170; J2250; J3010

== ENCOUNTER → 2024-03-21 | Outpatient (CLI) | payer OTHER ==
[~2024-03-21] MED LIST changes: -FLUO-365; -FLUO-365 PO; +FLUO20CA22; +FLUO20CA22 PO
== END ==
LOC: M SOG 09:28
PROVIDERS: ATTEND Orthopaedic Surgery
DX: M25.571 Pain in right ankle and joints of right foot (principal)

== ENCOUNTER 2024-03-25 16:33 | Inpatient (IN) | payer OTHER ==
[~2024-03-25] VITALS: Ht 167.6 cm; Wt 134.1 kg
[2024-03-25 21:25] VITALS: BP 130/71; TEMP 98.1; O2SAT 92
[2024-03-25] MEDS ORDERED: VRAY6CAP PO (21:51)
[2024-03-25] MEDS ORDERED: METH10CO PO (21:51)
[2024-03-25] MEDS ORDERED: METF500T13 PO (21:51)
[2024-03-25] MEDS ORDERED: LEVO100T5 PO (21:51)
[2024-03-25] MEDS ORDERED: MED REC IN PROGRESS XX SCH (21:55)
[2024-03-25] MEDS: HYDROMORPHONE HCL 0.5 MG/ 0.5 ML SYRINGE IV PRN (22:58)
[2024-03-25 23:27] LABS: HEMATOCRIT 36.4 % (36.0-47.0); HEMOGLOBIN 12.2 g/dl (12.0-15.5); MEAN CORPUSCULAR HEMOGLOBIN 31.1 pg (27.0-33.0); MEAN CORPUSCULAR HGB CONC 33.5 g/dl (32.0-36.5); MEAN CORPUSCULAR VOLUME 92.9 fl (80.0-96.0); PLATELET COUNT, AUTOMATED 198 10^3/uL (150-450); RED BLOOD COUNT 3.92 10^6/uL (4.00-5.40); WHITE BLOOD COUNT 11.1 10^3/uL (4.0-10.0)
[2024-03-25 23:44] LABS: ALBUMIN 3.3 G/DL (3.2-5.2); ALKALINE PHOSPHATASE 68 U/L (46-116); ALT/SGPT 55 U/L (7.0-40); AST/SGOT 43 U/L (<34); BILIRUBIN,TOTAL 0.5 MG/DL (0.3-1.2); BLOOD UREA NITROGEN 12 MG/DL (9-23); CALCIUM LEVEL 9.1 MG/DL (8.5-10.1); CARBON DIOXIDE LEVEL 29 MMOL/L (20-31); CHLORIDE LEVEL 103 MMOL/L (98-107); CREATININE FOR GFR 0.81 MG/DL (0.55-1.30); GLOMERULAR FILTRATION RATE > 60.0 (>60); GLUCOSE, FASTING 81 MG/DL (60-100); POTASSIUM SERUM 3.6 MMOL/L (3.5-5.1); SODIUM LEVEL 138 MMOL/L (136-145); TOTAL PROTEIN 7.1 G/DL (5.7-8.2)
[2024-03-26] MEDS ORDERED: GLUCAGON INJ 1MG VIAL SC PRN (02:45)
[2024-03-26] MEDS ORDERED: DEXTROSE 50% 50ML SYRINGE IV PRN (02:45)
[2024-03-26] MEDS ORDERED: GLUCOSE 4 GM CHEW PO PRN (02:45)
[2024-03-26] MEDS: HEPARIN SOD (PORCINE) 5000UNITS/ML 1ML VIAL/SYRINGE SC SCH (05:07)
[2024-03-26] MEDS: LEVOTHYROXINE 100MCG TABLET (0.1MG) PO SCH (05:07)
[2024-03-26 05:35] VITALS: BP 104/58; TEMP 97.7; O2SAT 98
[2024-03-26] MEDS: INSULIN LISPRO (NovoLOG) PER UNIT SC SCH (05:46)
[2024-03-26 08:38] LABS: BASO # 0.1 10^3/uL (0.0-0.2); BASO % 0.5 % (0.0-1.0); EOS # 0.1 10^3/uL (0.0-0.5); EOS % 1.1 % (0.0-3.0); HEMATOCRIT 38.6 % (36.0-47.0); HEMOGLOBIN 12.7 g/dl (12.0-15.5); LYMPH # 3.1 10^3/uL (1.5-5.0); LYMPH % 27.3 % (24.0-44.0); MEAN CORPUSCULAR HEMOGLOBIN 30.3 pg (27.0-33.0); MEAN CORPUSCULAR HGB CONC 32.9 g/dl (32.0-36.5); MEAN CORPUSCULAR VOLUME 92.1 fl (80.0-96.0); MONO # 0.5 10^3/uL (0.0-0.8); MONO % 4.6 % (2.0-8.0); NEUTROPHILS # 7.4 10^3/uL (1.5-8.5); NEUTROPHILS % 65.4 % (36.0-66.0); PLATELET COUNT, AUTOMATED 209 10^3/uL (150-450); RED BLOOD COUNT 4.19 10^6/uL (4.00-5.40); WHITE BLOOD COUNT 11.4 10^3/uL (4.0-10.0)
[2024-03-26] MEDS ORDERED: PILL CUTTER 1 EACH XX PRN (08:45)
[2024-03-26] MEDS: ENOXAPARIN 40MG/0.4ML SYRINGE (J1650 PER 10MG) SC SCH (09:00)
[2024-03-26] MEDS: oxyBUTYnin 5 MG TAB PO SCH (09:01)
[2024-03-26] MEDS: GABAPENTIN 400MG CAP PO SCH (09:01)
[2024-03-26] MEDS: METHADONE 10MG TAB PO SCH (09:02)
[2024-03-26] MEDS: NICOTINE 21MG/24HR 1 EA TRANSDERMAL TD SCH (09:03)
[2024-03-26 09:14] LABS: ALBUMIN 3.2 G/DL (3.2-5.2); ALKALINE PHOSPHATASE 67 U/L (46-116); ALT/SGPT 52 U/L (7.0-40); AST/SGOT 44 U/L (<34); BILIRUBIN,DIRECT 0.3 MG/DL (<0.4); BILIRUBIN,TOTAL 0.6 MG/DL (0.3-1.2); BLOOD UREA NITROGEN 10 MG/DL (9-23); CALCIUM LEVEL 8.5 MG/DL (8.5-10.1); CARBON DIOXIDE LEVEL 27 MMOL/L (20-31); CHLORIDE LEVEL 106 MMOL/L (98-107); CREATININE FOR GFR 0.72 MG/DL (0.55-1.30); GLOMERULAR FILTRATION RATE > 60.0 (>60); GLUCOSE, FASTING 98 MG/DL (60-100); SODIUM LEVEL 139 MMOL/L (136-145); TOTAL PROTEIN 7.2 G/DL (5.7-8.2)
[2024-03-26] MEDS: CARIPRAZINE 3MG CAPSULE (VRAYLAR) PO SCH (09:22)
[2024-03-26 11:44] LABS: URINE PREG TEST NEGATIVE (NEGATIVE)
[2024-03-26] MEDS ORDERED: MIDAZOLAM INJ 2MG/2ML VIAL As Ordered ONE (15:45)
[2024-03-26] MEDS ORDERED: propofoL 200 MG/20 ML VIAL As Ordered ONE (15:45)
[2024-03-26] MEDS ORDERED: ONDANSETRON 4MG 2ML VIAL As Ordered ONE (15:45)
[2024-03-26] MEDS ORDERED: fentaNYL 100 MCG/2 ML INJECTION As Ordered ONE (15:45)
[2024-03-26] MEDS ORDERED: LIDOCAINE 2% 100MG/5ML SDV (FOR ANES.) As Ordered ONE (15:45)
[2024-03-26] MEDS ORDERED: ROCURONIUM BROMIDE 50MG/5ML VIAL As Ordered ONE (15:45)
[2024-03-26] MEDS ORDERED: dexmedeTOMIDine (4MCG/ML)200MCG/50ML BTL (PRECEDEX) As Ordered ONE (15:46)
[2024-03-26] MEDS ORDERED: ACETAMINOPHEN 1000MG 100ML IV BAG As Ordered ONE (15:54)
[2024-03-26 16:00] VITALS: BP 145/82; TEMP 97.3; O2SAT 99
[2024-03-26] MEDS: ceFAZolin 1GM VIAL As Ordered ONE (16:10)
[2024-03-26] MEDS: TRANEXAMIC ACID 100 MG/ML 10ML VIAL As Ordered ONE (16:10)
[2024-03-26] MEDS: ceFAZolin 2 GM/D5W 50 ML IV BAG As Ordered ONE (16:10)
[2024-03-26] MEDS ORDERED: KETAMINE HCL 200MG/20ML VIAL As Ordered ONE (16:30)
[2024-03-26] MEDS ORDERED: GLYCOPYRROLATE INJ 0.2 MG/ML 2 ML VIAL As Ordered ONE (17:14)
[2024-03-26] MEDS ORDERED: HYDROmorphone HCL 2MG/ML 1ML VIAL As Ordered ONE (18:11)
[2024-03-26] MEDS ORDERED: KETOROLAC 60MG 2ML VIAL As Ordered ONE (18:26)
[2024-03-26] MEDS ORDERED: SUGAMMADEX SODIUM 500 MG/5 ML VIAL (BRIDION) As Ordered ONE (18:26)
[2024-03-26] MEDS: VANCOMYCIN 1000MG/20ML VIAL As Ordered ONE (19:30)
[2024-03-26] MEDS ORDERED: ePHEDrine SULFATE 25 MG/5 ML(5MG/ML) SYRINGE As Ordered ONE (23:14)
[2024-03-26] MEDS ORDERED: fentaNYL 100 MCG/2 ML INJECTION IV PRN (23:35)
[2024-03-26] MEDS ORDERED: HYDROMORPHONE HCL 0.5 MG/ 0.5 ML SYRINGE IV PRN (23:35)
[2024-03-26] MEDS ORDERED: ONDANSETRON 4MG 2ML VIAL IV PRN (23:35)
[2024-03-26] MEDS ORDERED: oxyCODONE 5MG TAB PO PRN (23:35)
[2024-03-26] MEDS ORDERED: LR 1,000 ML IV SCH (23:35)
[2024-03-27] VITALS (9 sets, daily range): BP systolic 122–137; BP diastolic 68–94; TEMP 97.7–98.2; O2SAT 93–97
[2024-03-27] MEDS: LR 1,000 ML IV SCH (01:29)
[2024-03-27] MEDS: ACETAMINOPHEN *IV* 1,000 MG in IV 1 EA IV ONE (02:47)
[2024-03-27] MEDS: KETOROLAC 30 MG/ML 1ML VIAL IV PRN ×2 (03:14→09:46)
[2024-03-27] MEDS: MORPHINE 4 MG/ML 1ML VIAL IV PRN (05:53)
[2024-03-27] MEDS: ceFAZolin SOD 2 GM in IV 1 EA IV SCH (08:10)
[2024-03-27 08:22] LABS: BASO % 0.2 % (0.0-1.0); EOS % 0.2 % (0.0-3.0); HEMATOCRIT 34.8 % (36.0-47.0); HEMOGLOBIN 11.7 g/dl (12.0-15.5); LYMPH # 3.2 10^3/uL (1.5-5.0); LYMPH % 24.8 % (24.0-44.0); MEAN CORPUSCULAR HEMOGLOBIN 31.1 pg (27.0-33.0); MEAN CORPUSCULAR HGB CONC 33.6 g/dl (32.0-36.5); MEAN CORPUSCULAR VOLUME 92.6 fl (80.0-96.0); MONO # 0.6 10^3/uL (0.0-0.8); MONO % 4.3 % (2.0-8.0); NEUTROPHILS % 69.4 % (36.0-66.0); PLATELET COUNT, AUTOMATED 191 10^3/uL (150-450); RED BLOOD COUNT 3.76 10^6/uL (4.00-5.40); WHITE BLOOD COUNT 12.9 10^3/uL (4.0-10.0)
[2024-03-27 08:53] LABS: ALBUMIN 2.9 G/DL (3.2-5.2); ALKALINE PHOSPHATASE 60 U/L (46-116); ALT/SGPT 52 U/L (7.0-40); AST/SGOT 60 U/L (<34); BILIRUBIN,DIRECT 0.3 MG/DL (<0.4); BILIRUBIN,TOTAL 0.5 MG/DL (0.3-1.2); BLOOD UREA NITROGEN 12 MG/DL (9-23); CALCIUM LEVEL 8.5 MG/DL (8.5-10.1); CARBON DIOXIDE LEVEL 30 MMOL/L (20-31); CHLORIDE LEVEL 106 MMOL/L (98-107); CREATININE FOR GFR 0.77 MG/DL (0.55-1.30); GLOMERULAR FILTRATION RATE > 60.0 (>60); GLUCOSE, FASTING 91 MG/DL (60-100); POTASSIUM SERUM 4.1 MMOL/L (3.5-5.1); SODIUM LEVEL 140 MMOL/L (136-145); TOTAL PROTEIN 6.6 G/DL (5.7-8.2)
[2024-03-27] MEDS: ONDANSETRON 4MG 2ML VIAL IV PRN (09:54)
[2024-03-27] MEDS: ACETAMINOPHEN TAB 650MG DOSE (2X325MG) PO PRN (13:50)
[2024-03-28 05:42] VITALS: BP 126/77; TEMP 97.7; O2SAT 96
[2024-03-28] MEDS: PERCOCET 5MG/325MG TAB PO PRN ×2 (12:18→20:42)
[2024-03-28 14:00] VITALS: TEMP 97.7; O2SAT 94
[2024-03-28 14:15] LABS: BASO % 0.4 % (0.0-1.0); EOS # 0.1 10^3/uL (0.0-0.5); EOS % 0.7 % (0.0-3.0); HEMATOCRIT 38.5 % (36.0-47.0); HEMOGLOBIN 12.7 g/dl (12.0-15.5); LYMPH # 3.6 10^3/uL (1.5-5.0); LYMPH % 32.6 % (24.0-44.0); MEAN CORPUSCULAR HEMOGLOBIN 30.8 pg (27.0-33.0); MEAN CORPUSCULAR VOLUME 93.4 fl (80.0-96.0); MONO # 0.4 10^3/uL (0.0-0.8); MONO % 3.9 % (2.0-8.0); NEUTROPHILS # 6.8 10^3/uL (1.5-8.5); NEUTROPHILS % 61.5 % (36.0-66.0); PLATELET COUNT, AUTOMATED 226 10^3/uL (150-450); RED BLOOD COUNT 4.12 10^6/uL (4.00-5.40)
[2024-03-28 14:41] LABS: ALBUMIN 3.3 G/DL (3.2-5.2); ALKALINE PHOSPHATASE 68 U/L (46-116); ALT/SGPT 44 U/L (7.0-40); AST/SGOT 52 U/L (<34); BILIRUBIN,DIRECT 0.3 MG/DL (<0.4); BILIRUBIN,TOTAL 0.5 MG/DL (0.3-1.2); BLOOD UREA NITROGEN 9 MG/DL (9-23); CALCIUM LEVEL 8.9 MG/DL (8.5-10.1); CARBON DIOXIDE LEVEL 31 MMOL/L (20-31); CHLORIDE LEVEL 106 MMOL/L (98-107); CREATININE FOR GFR 0.71 MG/DL (0.55-1.30); GLOMERULAR FILTRATION RATE > 60.0 (>60); GLUCOSE, FASTING 90 MG/DL (60-100); POTASSIUM SERUM 3.9 MMOL/L (3.5-5.1); SODIUM LEVEL 143 MMOL/L (136-145); TOTAL PROTEIN 7.5 G/DL (5.7-8.2)
[2024-03-28] MEDS: INSULIN LISPRO (NovoLOG) PER UNIT SC SCH ×2 (16:37→20:43)
[2024-03-28 19:30] VITALS: BP 149/69; TEMP 98.1; O2SAT 94
[2024-03-28] MEDS: ACETAMINOPHEN TAB 650MG DOSE (2X325MG) PO PRN (23:55)
[2024-03-29 05:10] VITALS: BP 147/96; TEMP 98.1; O2SAT 97
[2024-03-29] MEDS: MOM 30ML SUSPENSION UDC PO SCH (08:24)
[2024-03-29] MEDS: MIRALAX *UNIT DOSE* 17GM PACKET PO SCH (08:25)
[2024-03-29] MEDS: SENOKOT S TAB PO SCH (08:25)
[2024-03-29 10:15] LABS: BASO % 0.4 % (0.0-1.0); EOS # 0.1 10^3/uL (0.0-0.5); EOS % 0.7 % (0.0-3.0); HEMATOCRIT 37.8 % (36.0-47.0); HEMOGLOBIN 12.2 g/dl (12.0-15.5); LYMPH # 1.9 10^3/uL (1.5-5.0); LYMPH % 25.2 % (24.0-44.0); MEAN CORPUSCULAR HEMOGLOBIN 30.1 pg (27.0-33.0); MEAN CORPUSCULAR HGB CONC 32.3 g/dl (32.0-36.5); MEAN CORPUSCULAR VOLUME 93.3 fl (80.0-96.0); MONO # 0.4 10^3/uL (0.0-0.8); MONO % 4.8 % (2.0-8.0); NEUTROPHILS # 5.2 10^3/uL (1.5-8.5); NEUTROPHILS % 67.6 % (36.0-66.0); PLATELET COUNT, AUTOMATED 217 10^3/uL (150-450); RED BLOOD COUNT 4.05 10^6/uL (4.00-5.40); WHITE BLOOD COUNT 7.7 10^3/uL (4.0-10.0)
[2024-03-29 10:47] LABS: ALBUMIN 3.2 G/DL (3.2-5.2); ALKALINE PHOSPHATASE 63 U/L (46-116); ALT/SGPT 40 U/L (7.0-40); AST/SGOT 39 U/L (<34); BILIRUBIN,DIRECT 0.3 MG/DL (<0.4); BILIRUBIN,TOTAL 0.6 MG/DL (0.3-1.2); BLOOD UREA NITROGEN 10 MG/DL (9-23); CALCIUM LEVEL 9.2 MG/DL (8.5-10.1); CARBON DIOXIDE LEVEL 30 MMOL/L (20-31); CHLORIDE LEVEL 105 MMOL/L (98-107); CREATININE FOR GFR 0.67 MG/DL (0.55-1.30); GLOMERULAR FILTRATION RATE > 60.0 (>60); GLUCOSE, FASTING 93 MG/DL (60-100); SODIUM LEVEL 140 MMOL/L (136-145); TOTAL PROTEIN 7.1 G/DL (5.7-8.2)
[2024-03-29 14:26] VITALS: BP 118/66; TEMP 97.9; O2SAT 94
[2024-03-29 21:20] VITALS: BP 145/86; TEMP 98.1; O2SAT 94
[2024-03-30 05:56] VITALS: BP 117/66; TEMP 97.7; O2SAT 98
[2024-03-30 14:00] VITALS: BP 143/100; TEMP 97.7; O2SAT 96
[2024-03-30 15:00] VITALS: BP 118/74
[2024-03-30 21:41] VITALS: BP 125/75; TEMP 97.7; O2SAT 99
[2024-03-31 05:44] VITALS: BP 115/73; TEMP 97.9; O2SAT 97
[2024-03-31 14:00] VITALS: BP 144/86; TEMP 97.5; O2SAT 95
[2024-04-01 06:00] VITALS: BP 149/87; TEMP 97.5; O2SAT 98
[2024-04-02 06:00] VITALS: BP 110/67; TEMP 97.2; O2SAT 100
[2024-04-02] MEDS ORDERED: SENN-52 PO (11:50)
[2024-04-02] MEDS ORDERED: PERCOCET PO (11:50)
== END 2024-04-02 16:45 | disposition home or self-care (01) | DRG 313 ==
LOC: M MS5PR 21:20
PROVIDERS: ADMIT General Practice; ATTEND General Practice
PROC: 0QSJ04Z Reposition Right Fibula with Internal Fixation Device, Open Approach (ICD-10-PCS; 2024-03-26)
PROC: 0QSG04Z Reposition Right Tibia with Internal Fixation Device, Open Approach (ICD-10-PCS; principal; 2024-03-26 15:30)
DX: S82.851A Displaced trimalleolar fracture of right lower leg, initial encounter for closed fracture (principal); Z68.42 Body mass index [BMI] 45.0-49.9, adult; F11.21 Opioid dependence, in remission; F31.9 Bipolar disorder, unspecified; E03.9 Hypothyroidism, unspecified; N32.81 Overactive bladder; E66.9 Obesity, unspecified; F17.200 Nicotine dependence, unspecified, uncomplicated; Z88.8 Allergy status to other drugs, medicaments and biological substances; R74.01 Elevation of levels of liver transaminase levels; G89.29 Other chronic pain; F10.21 Alcohol dependence, in remission; T40.2X5A Adverse effect of other opioids, initial encounter; B19.20 Unspecified viral hepatitis C without hepatic coma; W18.09XA Striking against other object with subsequent fall, initial encounter; Y92.89 Other specified places as the place of occurrence of the external cause; Y93.89 Activity, other specified; Y99.8 Other external cause status; R73.03 Prediabetes; K59.03 Drug induced constipation; Z79.890 Hormone replacement therapy; Z79.899 Other long term (current) drug therapy; Z79.84 Long term (current) use of oral hypoglycemic drugs

== ENCOUNTER → 2024-04-19 | Outpatient (CLI) | payer OTHER, MEDICAID ==
[~2024-04-19] MED LIST changes: +FLUO-365; +FLUO-365 PO; -FLUO20CA22; -FLUO20CA22 PO; +METF500T13 PO; +METH10CO PO; +PERCOCET PO; +SENN-52 PO; +VRAY6CAP PO
== END ==
LOC: M SOG 11:37
PROVIDERS: ATTEND Physician Assistant
DX: S82.851A Displaced trimalleolar fracture of right lower leg, initial encounter for closed fracture (principal); Y93.9 Activity, unspecified; Y92.9 Unspecified place or not applicable

== ENCOUNTER → 2024-05-16 | Outpatient (CLI) | payer OTHER, MEDICAID | LOC: M SOG 08:00 | PROVIDERS: ATTEND Physician Assistant | DX: S82.851A Displaced trimalleolar fracture of right lower leg, initial encounter for closed fracture (principal) ==

== ENCOUNTER 2024-05-23 12:56 | Inpatient (IN) | payer MEDICAID, OTHER ==
[~2024-05-23] VITALS: Ht 167.6 cm; Wt 130.5 kg
[2024-05-23 15:09] VITALS: BP 109/65; TEMP 97.7; O2SAT 97
[2024-05-23] MEDS ORDERED: MOM 30ML SUSPENSION UDC PO PRN (15:20)
[2024-05-23] MEDS ORDERED: MAALOX 30 ML SUSP *UDC PO PRN (15:20)
[2024-05-23] MEDS ORDERED: ACETAMINOPHEN TAB 650MG DOSE (2X325MG) PO PRN (15:20)
[2024-05-23] MEDS: VANCOMYCIN HCL 1,000 MG, VIAL MATE ADAPTER 1 EACH in D5W 250 ML IV ONE (17:35)
[2024-05-23] MEDS: NICOTINE 21MG/24HR 1 EA TRANSDERMAL TD SCH (17:35)
[2024-05-23] MEDS: PERCOCET 5MG/325MG TAB PO PRN (17:39)
[2024-05-23] MEDS: CEFEPIME HCL 2 GM in D5W MINI-BAG PLUS 50 ML IV SCH (18:39)
[2024-05-23 20:00] VITALS: BP 100/54; TEMP 97.7; O2SAT 94
[2024-05-23] MEDS: VANCOMYCIN HCL 1,000 MG, VIAL MATE ADAPTER 1 EACH in D5W 250 ML IV SCH (20:26)
[2024-05-23] MEDS: DOCUSATE SODIUM 100MG CAPSULE PO SCH (20:26)
[2024-05-23 22:28] LABS: INR 1.1; PROTHROMBIN TIME 13.9 SECONDS (12.5-14.5)
[2024-05-23 22:42] LABS: ALBUMIN 3.4 G/DL (3.2-5.2); ALKALINE PHOSPHATASE 74 U/L (46-116); ALT/SGPT 29 U/L (7.0-40); AST/SGOT 17 U/L (<34); BILIRUBIN,TOTAL 0.3 MG/DL (0.3-1.2); BLOOD UREA NITROGEN 9 MG/DL (9-23); CALCIUM LEVEL 8.9 MG/DL (8.5-10.1); CARBON DIOXIDE LEVEL 30 MMOL/L (20-31); CHLORIDE LEVEL 106 MMOL/L (98-107); CREATININE FOR GFR 0.75 MG/DL (0.55-1.30); GLOMERULAR FILTRATION RATE > 60.0 (>60); GLUCOSE, FASTING 83 MG/DL (60-100); POTASSIUM SERUM 4.1 MMOL/L (3.5-5.1); SODIUM LEVEL 139 MMOL/L (136-145); TOTAL PROTEIN 7.1 G/DL (5.7-8.2)
[2024-05-23 22:49] LABS: PROCALCITONIN <0.04 ng/ml
[2024-05-24] MEDS ORDERED: DOCUSATE SODIUM 100MG CAPSULE As Ordered ONE (10:53)
[2024-05-24] MEDS ORDERED: METHADONE 10MG TAB As Ordered ONE (11:28)
[2024-05-24] MEDS ORDERED: METHADONE 5MG TAB As Ordered ONE (11:28)
[2024-05-24] MEDS: METHADONE 5MG TAB PO SCH (11:30)
[2024-05-24] MEDS: METHADONE 10MG TAB PO SCH (11:30)
[2024-05-24] MEDS ORDERED: VANCOMYCIN 1000MG/20ML VIAL As Ordered ONE (11:33)
[2024-05-24 12:00] VITALS: BP 99/75; TEMP 97.7; O2SAT 100
[2024-05-24] MEDS ORDERED: HOME MED LIST COMPLETE! XX SCH (12:40)
[2024-05-24 13:02] LABS: ALBUMIN 3.2 G/DL (3.2-5.2); ALKALINE PHOSPHATASE 61 U/L (46-116); ALT/SGPT 36 U/L (7.0-40); AST/SGOT 49 U/L (<34); BILIRUBIN,TOTAL 0.3 MG/DL (0.3-1.2); BLOOD UREA NITROGEN 9 MG/DL (9-23); CALCIUM LEVEL 8.9 MG/DL (8.5-10.1); CARBON DIOXIDE LEVEL 25 MMOL/L (20-31); CHLORIDE LEVEL 108 MMOL/L (98-107); CREATININE FOR GFR 0.71 MG/DL (0.55-1.30); GLOMERULAR FILTRATION RATE > 60.0 (>60); GLUCOSE, FASTING 90 MG/DL (60-100); MAGNESIUM LEVEL 1.9 MG/DL (1.8-2.4); POTASSIUM SERUM 5.3 MMOL/L (3.5-5.1); SODIUM LEVEL 136 MMOL/L (136-145); TOTAL PROTEIN 6.8 G/DL (5.7-8.2)
[2024-05-24 17:03] LABS: BASO % 0.5 % (0.0-1.0); EOS # 0.1 10^3/uL (0.0-0.5); EOS % 2.4 % (0.0-3.0); HEMATOCRIT 41.8 % (36.0-47.0); HEMOGLOBIN 13.8 g/dl (12.0-15.5); LYMPH # 3.1 10^3/uL (1.5-5.0); LYMPH % 53.1 % (24.0-44.0); MEAN CORPUSCULAR HEMOGLOBIN 29.9 pg (27.0-33.0); MEAN CORPUSCULAR VOLUME 90.5 fl (80.0-96.0); MONO # 0.3 10^3/uL (0.0-0.8); MONO % 5.3 % (2.0-8.0); NEUTROPHILS # 2.3 10^3/uL (1.5-8.5); NEUTROPHILS % 38.7 % (36.0-66.0); PLATELET COUNT, AUTOMATED 187 10^3/uL (150-450); RED BLOOD COUNT 4.62 10^6/uL (4.00-5.40); WHITE BLOOD COUNT 5.9 10^3/uL (4.0-10.0)
[2024-05-24 19:44] LABS: C REACTIVE PROTEIN QUANTITATIV 1.7 MG/DL (<1.0); VANCOMYCIN LEVEL TROUGH 19.6 UG/ML (10.0-20.0)
[2024-05-24 20:31] VITALS: BP 115/86; TEMP 97.3; O2SAT 94
[2024-05-24 20:50] LABS: MEAN CORPUSCULAR HEMOGLOBIN 29.9 pg (27.0-33.0); MEAN CORPUSCULAR HGB CONC 33.3 g/dl (32.0-36.5); MEAN CORPUSCULAR VOLUME 89.6 fl (80.0-96.0); PLATELET COUNT, AUTOMATED 203 10^3/uL (150-450); RED BLOOD COUNT 4.69 10^6/uL (4.00-5.40); WHITE BLOOD COUNT 6.6 10^3/uL (4.0-10.0)
[2024-05-24 20:57] LABS: ERYTHROCYTE SEDIMENTATION RATE 29 mm/hr (0-20)
[2024-05-24] MEDS: VANCOMYCIN HCL 1,000 MG, VIAL MATE ADAPTER 1 EACH in D5W 250 ML IV SCH (23:01)
[2024-05-25 06:39] VITALS: BP 117/84; TEMP 97.5; O2SAT 97
[2024-05-25 11:44] LABS: BASO % 0.5 % (0.0-1.0); EOS # 0.1 10^3/uL (0.0-0.5); EOS % 0.9 % (0.0-3.0); HEMOGLOBIN 13.6 g/dl (12.0-15.5); LYMPH # 1.5 10^3/uL (1.5-5.0); MEAN CORPUSCULAR HEMOGLOBIN 30.8 pg (27.0-33.0); MEAN CORPUSCULAR VOLUME 90.7 fl (80.0-96.0); MONO # 0.2 10^3/uL (0.0-0.8); MONO % 3.9 % (2.0-8.0); NEUTROPHILS # 4.1 10^3/uL (1.5-8.5); NEUTROPHILS % 69.5 % (36.0-66.0); PLATELET COUNT, AUTOMATED 193 10^3/uL (150-450); RED BLOOD COUNT 4.41 10^6/uL (4.00-5.40); WHITE BLOOD COUNT 5.9 10^3/uL (4.0-10.0)
[2024-05-25 12:00] VITALS: BP 118/80; TEMP 97.5; O2SAT 96
[2024-05-25 12:04] LABS: BLOOD UREA NITROGEN 7 MG/DL (9-23); CALCIUM LEVEL 9.3 MG/DL (8.5-10.1); CARBON DIOXIDE LEVEL 29 MMOL/L (20-31); CHLORIDE LEVEL 107 MMOL/L (98-107); CREATININE FOR GFR 0.73 MG/DL (0.55-1.30); GLOMERULAR FILTRATION RATE > 60.0 (>60); GLUCOSE, FASTING 103 MG/DL (60-100); POTASSIUM SERUM 4.1 MMOL/L (3.5-5.1); SODIUM LEVEL 140 MMOL/L (136-145)
[2024-05-25] MEDS: HEPARIN SOD (PORCINE) 5000UNITS/ML 1ML VIAL/SYRINGE SQ SCH (16:26)
[2024-05-25] MEDS: GABAPENTIN 400MG CAP PO SCH (16:26)
[2024-05-25] MEDS: oxyBUTYnin 5 MG TAB PO SCH (20:05)
[2024-05-25 20:06] VITALS: BP 130/82; TEMP 97.6; O2SAT 95
[2024-05-26] MEDS: LEVOTHYROXINE 100MCG TABLET (0.1MG) PO SCH (05:29)
[2024-05-26 05:50] VITALS: BP 103/55; TEMP 97.5; O2SAT 96
[2024-05-26 08:42] LABS: BASO % 0.4 % (0.0-1.0); EOS # 0.2 10^3/uL (0.0-0.5); EOS % 2.3 % (0.0-3.0); HEMATOCRIT 43.2 % (36.0-47.0); HEMOGLOBIN 14.3 g/dl (12.0-15.5); LYMPH # 4.1 10^3/uL (1.5-5.0); MEAN CORPUSCULAR HGB CONC 33.1 g/dl (32.0-36.5); MEAN CORPUSCULAR VOLUME 90.8 fl (80.0-96.0); MONO # 0.5 10^3/uL (0.0-0.8); MONO % 6.4 % (2.0-8.0); NEUTROPHILS # 3.1 10^3/uL (1.5-8.5); NEUTROPHILS % 38.8 % (36.0-66.0); PLATELET COUNT, AUTOMATED 191 10^3/uL (150-450); RED BLOOD COUNT 4.76 10^6/uL (4.00-5.40); WHITE BLOOD COUNT 7.9 10^3/uL (4.0-10.0)
[2024-05-26 12:00] VITALS: BP 110/71; TEMP 97.9; O2SAT 98
[2024-05-26 21:30] VITALS: BP 111/63; TEMP 97.5; O2SAT 97
[2024-05-27 04:00] VITALS: BP 109/59; TEMP 97.3; O2SAT 96
[2024-05-27 06:32] LABS: BASO % 0.6 % (0.0-1.0); EOS # 0.2 10^3/uL (0.0-0.5); EOS % 2.7 % (0.0-3.0); HEMATOCRIT 39.3 % (36.0-47.0); HEMOGLOBIN 13.1 g/dl (12.0-15.5); LYMPH # 3.9 10^3/uL (1.5-5.0); LYMPH % 58.7 % (24.0-44.0); MEAN CORPUSCULAR HEMOGLOBIN 30.5 pg (27.0-33.0); MEAN CORPUSCULAR HGB CONC 33.3 g/dl (32.0-36.5); MEAN CORPUSCULAR VOLUME 91.6 fl (80.0-96.0); MONO # 0.4 10^3/uL (0.0-0.8); MONO % 6.5 % (2.0-8.0); NEUTROPHILS # 2.1 10^3/uL (1.5-8.5); NEUTROPHILS % 31.3 % (36.0-66.0); PLATELET COUNT, AUTOMATED 152 10^3/uL (150-450); RED BLOOD COUNT 4.29 10^6/uL (4.00-5.40); WHITE BLOOD COUNT 6.6 10^3/uL (4.0-10.0)
[2024-05-27 06:50] LABS: ERYTHROCYTE SEDIMENTATION RATE 21 mm/hr (0-20)
[2024-05-27 07:03] LABS: C REACTIVE PROTEIN QUANTITATIV < 0.40 MG/DL (<1.0)
[2024-05-27 07:04] LABS: BLOOD UREA NITROGEN 13 MG/DL (9-23); CALCIUM LEVEL 9.1 MG/DL (8.5-10.1); CARBON DIOXIDE LEVEL 29 MMOL/L (20-31); CHLORIDE LEVEL 105 MMOL/L (98-107); GLOMERULAR FILTRATION RATE > 60.0 (>60); GLUCOSE, FASTING 78 MG/DL (60-100); POTASSIUM SERUM 4.2 MMOL/L (3.5-5.1); SODIUM LEVEL 140 MMOL/L (136-145)
[2024-05-27 12:00] VITALS: BP 108/59; TEMP 97.3; O2SAT 98
[2024-05-27] MEDS ORDERED: BACTDSTA PO (13:56)
[2024-05-27] MEDS: BACTRIM 160MG/800MG DS TAB PO SCH (14:59)
== END 2024-05-27 15:23 | disposition home or self-care (01) | DRG 721 ==
LOC: M MSPAV 14:41 → EEVIPCON 14:41
PROVIDERS: ADMIT Student in an Organized Health Care Education/Training Program; ATTEND Hospitalist
DX: T81.41XA Infection following a procedure, superficial incisional surgical site, initial encounter (principal); T81.31XA Disruption of external operation (surgical) wound, not elsewhere classified, initial encounter; E66.01 Morbid (severe) obesity due to excess calories; F11.20 Opioid dependence, uncomplicated; S82.851D Displaced trimalleolar fracture of right lower leg, subsequent encounter for closed fracture with routine healing; Y83.8 Other surgical procedures as the cause of abnormal reaction of the patient, or of later complication, without mention of misadventure at the time of the procedure; L03.115 Cellulitis of right lower limb; F31.9 Bipolar disorder, unspecified; F17.200 Nicotine dependence, unspecified, uncomplicated; B95.62 Methicillin resistant Staphylococcus aureus infection as the cause of diseases classified elsewhere; Z79.84 Long term (current) use of oral hypoglycemic drugs; Z79.899 Other long term (current) drug therapy; Z68.42 Body mass index [BMI] 45.0-49.9, adult; Z88.0 Allergy status to penicillin; Z88.8 Allergy status to other drugs, medicaments and biological substances; Z91.198 Patient's noncompliance with other medical treatment and regimen for other reason

== ENCOUNTER → 2024-05-23 | Outpatient (CLI) | payer MEDICAID, OTHER | LOC: M SOG 10:44 | PROVIDERS: ATTEND Physician Assistant | DX: S82.851A Displaced trimalleolar fracture of right lower leg, initial encounter for closed fracture (principal); Y93.9 Activity, unspecified; Y92.9 Unspecified place or not applicable ==

== ENCOUNTER → 2024-06-20 | Outpatient (CLI) | payer OTHER, MEDICAID | LOC: M SOG 07:54 | PROVIDERS: ATTEND Physician Assistant | DX: Z53.9 Procedure and treatment not carried out, unspecified reason (principal) ==

== ENCOUNTER → 2024-07-18 | Outpatient (CLI) | payer OTHER, MEDICAID ==
[~2024-07-18] MED LIST changes: +GABA-1490; +GABA-1490 PO; +GABA-1635 PO; -GABA600T4; -GABA600T4 PO; -GABA800T4 PO; +SENN-187 PO; -SENN-83 PO
== END ==
LOC: M SOG 12:56
PROVIDERS: ATTEND Orthopaedic Surgery
DX: S82.851D Displaced trimalleolar fracture of right lower leg, subsequent encounter for closed fracture with routine healing (principal); X58.XXXD Exposure to other specified factors, subsequent encounter